=== PATIENT | female | born 1990 | race Caucasian/White ===

== ENCOUNTER 2024-06-10 11:10 | Emergency (ER) | payer OTHER, SELFPAY ==
[2024-06-10 11:43] VITALS: BP 145/68; PULSE 65; RESP 14; TEMP 36.5; O2SAT 98
--- NOTE | 2024-06-10 12:21 | ED.ANIMALBIT ---
HPI - Animal Bite General Chief Complaint: Animal Bite Stated Complaint: rabies vaccine Time Seen by Provider: 06/10/24 11:18 Source: patient Mode of arrival: ambulatory Limitations: no limitations History of Present Illness HPI narrative: Patient is a 33 y/o female who presents to the ED with c/o bat exposure. Patient reports she woke up this morning with a bat flying around her house. She was able to capture the bat in a box and has contacted the health department/animal control in [place]. Did not find any bite mckinney on herself or family members, but present for rabies vaccination. Tetanus UTD. Denies any other complaints. Related Data Allergies Allergy/AdvReac Type Severity Reaction Status Date / Time No Known Allergies Allergy Verified 06/10/24 11:11 Review of Systems Review of Systems: All systems reviewed & are unremarkable except as noted in HPI. All systems reviewed & are unremarkable except as noted in HPI and below Exam Narrative: GENERAL: Well appearing, well-nourished, non-toxic, in no acute distress. HEAD: Normocephalic, atraumatic. RESPIRATORY: Airway patent, respirations nonlabored. CARDIOVASCULAR: Regular rate and rhythm MUSCULOSKELETAL: Moves all extremities. No gross deformities. SKIN: Warm, dry, normal color. NEURO: A&O X3. Speech clear. PSYCHIATRIC: Appropriate mood and affect. Normal interaction. Course Vital Signs Vital signs: Vital Signs Temperature 97.7 F 06/10/24 11:43 Pulse Rate 65 06/10/24 11:43 Respiratory Rate 14 06/10/24 11:43 Blood Pressure 145/68 H 06/10/24 11:43 Pulse Oximetry 98 06/10/24 11:43 Oxygen Delivery Room Air 06/10/24 11:43 Temperature 97.7 F 06/10/24 11:43 Pulse Rate 65 06/10/24 11:43 Respiratory Rate 14 06/10/24 11:43 Blood Pressure 145/68 H 06/10/24 11:43 Pulse Oximetry 98 06/10/24 11:43 Oxygen Delivery Room Air 06/10/24 11:43 MDM - Animal Bite MDM Narrative Medical decision making narrative: Bat exposure. No obvious bite. Given rabies vaccine and immunoglobulin. Patient has contacted animal control and health department in [place] were incident occurred. They do have the bat in their possession still to given to animal control. Discussed case with Debbie Dupree here, infection control, will f/u with patient for subsequent vaccinations. Patient given return precautions. Discharged in stable condition. Medical Records Attestation: I reviewed the patient's medical records. Discharge Plan Discharge Clinical Impression: Exposure to bat without known bite Patient Disposition: Home, Self-Care Condition: Stable Instructions: Antibiotic Form, Rabies Vaccine (By injection), Rabies Immune Globulin (By injection), Rabies (ED) Additional Instructions: Follow-up with Debbie Dupree for further vaccines. [phone] Patient Language: Czech Follow-up/Referrals: PHYSICIAN,GREENHOUSE OR NURSERY TRANSPLANTER [Non-Staff] - Time of Disposition: 12:26
[2024-06-10] MEDS: RABIES VACCINE (RABAVERT) 2.5 UNITS VIAL IM (12:44)
[2024-06-10] MEDS: RABIES IMMUNE GLOBULIN 1600 UNITS IM (12:51)
--- OUTSIDE RECORDS SUMMARY | 2024-06-17 07:42 | XMS_ITS | Encounter Summary ---
Author Organization [facility] Address [address] [place] [address] Care Team Providers Care Sash Installer Name Role Phone Gordon Mccullough MD Primary Care Provider [phone]- [phone] Encounter Details Date Type Department Care Team (Latest Contact Info) Description 09/02/2023 Travel Social History Tobacco Use Types Packs/Day Years Used Date Smoking Tobacco: Never Smokeless Tobacco: Never Alcohol Use Standard Drinks/Week Comments Not Currently 4 (1 standard drink = 0.6 oz pur e alcohol) PHQ-2 Answer Date Recorded Patient Health Questionnaire-2 Score 0 08/26/2023 Comments Yes Sex and Gender Information Value Date Recorded Sex Assigned at Female 08/04/2021 1:55 PM ROCK MASON Gender Identity Female 08/04/2021 1:55 PM ROCK MASON Sexual Orientation Not on file documented as of this encounter Plan of Treatment Upcoming Encounters Date Type Department Care Team (Late st Contact Info) Description 07/21/2024 2:20 PM ROCK MASON Office Visit [facility] - Internal Medicine [address] [place] [address] Gordon Mccullough MD [address] [facility] [place] [phone] documented as of this encounter Visit Diagnoses Not on filedocumented in this encounter Care Teams Sash Installer Relationship Specialty Start Date End Date Gordon Mccullough MD PCP - General Family Medicine 08/08/21 documented as of this encounter
--- OUTSIDE RECORDS SUMMARY | 2024-06-17 07:42 | XMS_ITS | Encounter Summary ---
Author Organization [facility] Address [address] [facility] [place] [address] Care Team Providers Care Top Polisher Name Role Phone Gordon Mccullough MD Primary Care Provider [phone]- [phone] Reason for Visit * Reason Comments Routine Visit Encounter Details Date Type Department Care Team (Late st Contact Info) Description 09/02/2023 9:00 AM CDT visit [facility] - MICROBIOLOGY PROFESSOR [address] [place] [address], [address] [phone] Karin Pinto MD [address] [place] [phone] GA: [id number] Social History Tobacco Use Types Packs/Day Years Used Date Smoking Tobacco: Never Smokeless Tobacco: Never Alcohol Use Standard Drinks/Week Comments Not Currently 4 (1 standard drink = 0.6 oz pur e alcohol) PHQ-2 Answer Date Recorded Patient Health Questionnaire-2 Score 0 08/26/2023 Comments Yes Sex and Gender Information Value Date Recorded Sex Assigned at Female 08/04/2021 1:55 PM BPO SPECIALIST Gender Identity Female 08/04/2021 1:55 PM BPO SPECIALIST Sexual Orientation Not on file documented as of this encounter Last Filed Vital Signs Vital Sign Reading Time Taken Comments Blood Pressure 110/74 09/02/2023 9:14 AM CDT Pulse - - Temperature - - Respiratory Rate - - Oxygen Saturation - - Inhaled Oxygen Concentration - - Weight 87.1 kg (192 lb) 09/02/2023 9:14 AM CDT Height - - Body Mass Index 26.78 07/02/2023 9:20 AM BPO SPECIALIST documented in this encounter Progress Notes * Karin Pinto MD - 09/02/2023 9:21 AM CDT CC: Routine Care ?? Patient is doing well.??+FM.??Denies VB, LOF,??or regular ctx.??No new concerns.??Follow-up in??1??week for routine PNC. IOL scheduled 09/17/23 PM. documented in this encounter Plan of Treatment Upcoming Encounters Date Type Department Care Team (Late st Contact Info) Description 07/21/2024 2:20 PM BPO SPECIALIST Office Visit [facility] - Internal Medicine [address] [place] [address] Gordon Mccullough MD [address] [place] [phone] documented as of this encounter Visit Diagnoses Diagnosis 37 weeks gestation of (HCC)- Primary state, incidental Anxiety in , antepartum (HCC) Mental disorders of mother, antepartum documented in this encounter Care Teams Top Polisher Relationship Specialty Start Date End Date Gordon Mccullough MD PCP - General Family Medicine 08/08/21 documented as of this encounter
--- OUTSIDE RECORDS SUMMARY | 2024-06-17 07:42 | XMS_ITS | Encounter Summary ---
Author Organization [facility] Address [address] [facility] [place] [address] Care Team Providers Care Echo Technologist Name Role Phone Gordon Mccullough MD Primary Care Provider [phone]- [phone] Encounter Details Date Type Department Care Team (Latest Contact Info) Description 12/03/2023 Travel Social History Tobacco Use Types Packs/Day Years Used Date Smoking Tobacco: Never Smokeless Tobacco: Never Alcohol Use Standard Drinks/Week Comments Not Currently 4 (1 standard drink = 0.6 oz pur e alcohol) Overall Financial Resource Strain (CARDIA) Answe r Date Recorded How hard is it for you to pa y for the very basics like food, housing, medical care, and heating? Not hard at all 09/17/2023 PHQ-2 Answer Date Recorded Patient Health Questionnaire-2 Score 0 11/26/2023 [facility] [place] of Occupat ional Health - Occupational Stress Questionnaire Answer Date Recorded Do you feel stress - tense, restless, nervous, or anxious, or unable to sleep at night because your mind is troubled all the time - these days? Not at all 09/17/2023 Hunger Vital Sign Answer Date Recorded Within the past 12 months, y ou worried that your food would run out before you got the money to buy more. Never true 09/17/19 24 Within the past 12 months, t he food you bought just didn't last and you didn't have money to get more. Never true 09/17/2023 PRAPARE - Transportation Answer Date Re corded In the past 12 months, has l ack of transportation kept you from medical appointments or from getting medications? No 02/2024 In the past 12 months, has l ack of transportation kept you from meetings, work, or from getting things needed for daily living? No 09/17/2023 Housing Stability Vital Sign Answer Cade e Recorded In the last 12 months, was t here a time when you were not able to pay the mortgage or rent on time? No 09/17/2023 In the last 12 months, how many places have you lived? 1 09/17/2023 In the last 12 months, was t here a time when you did not have a steady place to sleep or slept in a long-term (including now)? No 09/17/2023 Vance Depression Scale Answer Date Recorded Vance Depression Scale Total 3 10/29/2023 The thought of harming myself has occurred to me . Never 10/29/2023 Sex and Gender Information Value Date Recorded Sex Assigned at Female 08/04/2021 1:55 PM HAND ETCHER HELPER Gender Identity Female 08/04/2021 1:55 PM HAND ETCHER HELPER Sexual Orientation Not on file documented as of this encounter Functional Status Functional Status Response Date of Assess ment Is person deaf or have serious hearing difficult y? No 09/17/2023 Is person blind or have serious difficulty seein g? No 09/17/2023 Does person have serious dif ficulty walking/climbing stairs? No 09/17/2023 Does person have difficulty dressing/bathing? No 09/17/2023 Does person have difficulty doing errands alone? No 09/17/2023 Cognitive Status Response Date of Assessm ent Does person have difficulty concentrating/remembering/making decisions? No 09/17/2023 documented as of this encounter Plan of Treatment Upcoming Encounters Date Type Department Care Team (Late st Contact Info) Description 07/21/2024 2:20 PM HAND ETCHER HELPER Office Visit [facility] - Internal Medicine [address] [facility] [place] [address] Gordon Mccullough MD [address] [place] [address] documented as of this encounter Visit Diagnoses Not on filedocumented in this encounter Care Teams Echo Technologist Relationship Specialty Start Date End Date Gordon Mccullough MD PCP - General Family Medicine 08/08/21 documented as of this encounter
--- OUTSIDE RECORDS SUMMARY | 2024-06-17 07:42 | XMS_ITS | Encounter Summary ---
Author Organization [facility] Address [address] [facility] [place] [address] Care Team Providers Care Production Control Expert Name Role Phone Gordon Mccullough MD Primary Care Provider [phone]- [phone] Yael Barrno TEACHER VOCATIONAL TRAINING Unavailable [phone] Reason for Visit * Reason Onset Date Comments Transitional Care 09/20/2023 Encounter Details Date Type Department Care Team (Late st Contact Info) Description 09/20/2023 Transitional Care [facility] - Care Coordination [address] [place] [phone] Yael Barron MSW Transitional Care Social History Tobacco Use Types Packs/Day Years [...] Recorded Patient Health Questionnaire-2 Score 0 08/26/2023 [facility] [place] of Occupat ional Health - Occupational Stress [...] place to sleep or slept in a fdc (including now)? No 09/17/2023 [place] Depression Scale Answer Date Recorded [place] Depression Scale Total 0 09/19/2023 The thought of harming myself has occurred to me . Never 09/19/2023 Sex and Gender Information Value Date Recorded Sex Assigned at Female 08/04/2021 1:55 PM HEARING HEALTHCARE PRACTITIONER Gender Identity Female 08/04/2021 1:55 PM HEARING HEALTHCARE PRACTITIONER Sexual Orientation Not on file documented as [...] No 09/17/2023 documented as of this encounter Miscellaneous Notes * Telephone Encounter - Yael Barron MSW - 09/20/2023 10:15 AM CDT Outreach 06/12: SW attempted patient outreach regarding Transitional Care; LMOV regarding purpose of contact and request for return call. Yael Barron LCSW-[place] [phone] documented in this encounter Plan of Treatment Upcoming Encounters Date Type Department Care Team (Late st Contact Info) Description 07/21/2024 2:20 PM HEARING HEALTHCARE PRACTITIONER Office Visit [facility] - Internal Medicine [address] [place] [address] Gordon Mccullough MD [address] [place] [phone] documented as of this encounter Visit Diagnoses Not on filedocumented in this encounter Care Teams Production Control Expert Relationship Specialty Start Date End Date Gordon Mccullough MD PCP - General Family Medicine 08/08/21 Yael Barron MSW Outpatient Embedded Developer Care Management 09/20/2309/23 documented as of this encounter
--- OUTSIDE RECORDS SUMMARY | 2024-06-17 07:42 | XMS_ITS | Encounter Summary ---
Author Organization [facility] Address [address] [place] [address] Care Team Providers Care Hoop Maker Helper Machine Name Role Phone Gordon Mccullough MD Primary Care Provider [phone] Reason for Referral * (Routine) - Pending Review Specialty Diagnoses / Procedures Referred By Jose pan Referred To Contact Procedures Follow up with provider Karin Pinto MD [address] [facility] [address] [place] [address] Referral ID Status Reason Start Date Expiration Date V isits Requested Visits Authorized [id number] Pending Review 09/19/2023 09/18/2024 1 1 Reason for Visit * Reason Comments Induction * Auth/Cert (Routine) Specialty Diagnoses / Procedures Referred By Jose pan Referred To Contact Referral ID Status Reason Start Date Expiration Date Visits Re quested Visits Authorized [id number] 1 1 Encounter Details Date Type Department Care Team (Late st Contact Info) Description 09/17/2023 5:55 PM CDT - 09/19/2023 6:18 PM CDT Hospital Encounter [facility] [address] [address] Karin Pinto MD [address] [place] [address] SOCIAL ECONOMIST Discharge Disposition: Home or Self Care Social History Tobacco Use Types Packs/Day [...] Recorded Patient Health Questionnaire-2 Score 0 08/26/2023 [facility] - Occupational Stress [...] place to sleep or slept in a senior living (including now)? No 09/17/2023 [place] Depression Scale Answer Date Recorded [place] Depression Scale Total 0 09/19/2023 The thought of harming myself has occurred to me . 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 LABORER Gender Identity Female 08/04/2021 1:55 PM DISTILLERY LABORER Sexual Orientation Not on file documented as of this encounter Last Filed Vital Signs Vital Sign Reading Time Taken Comments Blood Pressure 139/86 09/19/2023 4:47 PM CDT Pulse 78 09/17/2023 6:04 PM CDT Temperature 36.9 ??C (98.4 ??F) 09/19/2023 4:47 PM CD T Respiratory Rate 16 09/19/2023 4:47 PM CDT Oxygen Saturation 100% 09/19/2023 4:47 PM CDT Inhaled Oxygen Concentration - - Weight 86.1 kg (189 lb 12.8 oz) 09/17/2023 6:04 PM CDT Height 180.3 cm (5' 11 ) 09/17/2023 6:04 PM CDT Body Mass Index 26.47 09/17/2023 6:04 PM CDT documented in this encounter Functional Status Functional Status Response [...] No 09/17/2023 documented as of this encounter Discharge Summaries * Karin Pinto MD - 09/19/2023 8:56 AM CDT OB Discharge Note Subjective: Patient is feeling well, pain adequately controlled, and ambulating. She is tolerating a regular diet without n/v. She is urinating spontaneously without difficulty. +Flatus. Objective: Vitals: 09/18/23 0845 09/18/23 1220 09/18/23 1600 09/18/23 2313 BP: 129/87 134/77 120/77 116/75 Pulse: Resp: 16 16 16 16 Temp: 97.7 ??F (36.5 ??C) 97.7 ??F (36.5 ??C) 97.5 ??F (36.4 ??C) 97.8 ??F (36.6 ??C) SpO2: 99% 99% Weight: Height: Intake/Output Summary (Last 24 hours) at 09/19/2023 0856 Last data filed at 09/18/2023 1000 Gross per 24 hour Intake -- Output 20 ml Net -20 ml Exam: Gen: NAD Heart: Acyanotic Lungs: Non-labored breathing Abd: Soft, ND, fundus firm/below the umbilicus Results: There are no new results to review at this time. Admit Date: 09/17/2023 Admit Diagnosis: 39 weeks gestation of , anxiety in Reasons for Admission: induction of labor Discharge Date: 09/19/23 Discharge Diagnosis: Term vaginal delivery. Delivery Type: spontaneous vaginal delivery Antepartum complications: none Episiotomy: mediolateral without extension Feeding method: human milk Rhogam: not indicated Rubella: not indicated Assessment: 1, Para 1, 0, Estimated Date of Delivery: 09/23/23 Gestational Age day 1. Complications: none Condition at discharge: stable Discharge Instructions: Discharge Procedure Orders Why you were hospitalized Order Specific Question Answer Comments Your discharge diagnosis is: Normal labor and delivery (HCC) [[id number]] No special diet needed Resume your normal home diet as tolerated. Eat well-balanced meals that include foods from all of the food groups. Drink plenty of fluids It is important that you stay well hydrated. You should drink at least eight to ten 8-ounce glassesof water per day. Nothing per vagina For 6 week(s) Light activity For 6 week(s) Do not drive For 1 week(s), until you are no longer taking narcotic pain medication. No heavy lifting Do not lift anything over 15 pounds For 6 week(s). When to call your provider and patient information Depression (PPD): This is a type of depression that occurs after childbirth. PPD can occur as early as one week up toone year after giving . Signs could include: -Thinking of hurting yourself or your baby -Feeling out of control, unable to care for self or baby -Feeling depressed or sad most of the day every day -Having trouble sleeping or sleeping too much -Having trouble bonding with your baby Call 911 or go to the nearest emergency room if you feel you might harm yourself or your baby. Callclinic immediately for other signs of depression (sadness, withdrawn, difficulty coping with parenting) Venous Thromboembolism: Development of a blood clot usually in your leg (calf area). Signs can include: -Leg pain, tender to touch, burning or redness, particularly in the calf area -Swelling of one leg more than the other Infection: An infection is an invasion of bacteria or viruses that enter and spread through your body, making you ill. Signs can include: -Temp>/= 100.4 F (>/= 38 C) -Bad smelling blood or discharge from vagina -Increase in redness or discharge from episiotomy or open wound not healing Call clinic immediately for above signs. If symptoms worsen or no response from provider/clinic, call 911 or go to the nearest emergency room. Preeclampsia and High Blood Pressure: Hypertension is when your blood pressure is much higher than it should be. A severe and constant headache that does not respond to over the counter medications could be something more serious. Preeclampsia is a complication of that includes high blood pressures and signs of damage to other organs. Eclampsia is the compulsive phase of preeclampsia, characterized by seizures. Worrisome signs include: -Severe constant headache that does not respond to pain medications -Changes in vision, seeing spots or flashing lights -Pain in the upper right abdominal area -Swelling of face, hands and or legs more than what you would expect -Changes in level of consciousness Call 911 for seizures. Call the clinic immediately for any other signs. If symptoms worsen or no response from clinic, call 911 or go to the nearest emergency room. Obstetric Hemorrhage: Obstetric hemorrhage is when you have an excessive amount of bleeding after you have delivered yourbaby. Signs include: -Bleeding through more than 1 sanitary pad per hour -Passing 1 or more clots the size of an egg or bigger -Character of clots goes from dark red/brown with clots to bright red bleeding Call clinic immediately for signs of hemorrhage. If symptoms worsen, call 911 or go to the nearest emergency room. Cardiac (Heart) Disease: Cardiac disease is when your heart is not working well. Signs can include: -Shortness of breath, or difficulty breathing -Feeling that your heart is racing -Chest pain or pressure You must obtain immediate care by calling 911 or going to the nearest emergency room RIGHT AWAY. Shower and bathing instructions May shower any time. Discuss with your physician regarding tub baths. Follow up with provider Additional Scheduling Instructions: Readmission Risk Score: 2. End of Life Score: 0 Score Follow up Visit 0-18 Discharge Visit 5-10 days 19 or higher Discharge Visit within 5 days Post-Acute Care Facility Post-acute care team to determine timing of discharge visit Order Specific Question Answer Comments Follow Up Instructions for Patient: Other (See Comment) Follow-up at 6 weeks For relief of pain Take acetaminophen or ibuprofen for relief of pain or discomfort if not taking prescription medications. Stool softeners Take stool softener or Miralax for relief of difficult bowel movements. For relief of constipation Take Miralax or Mild of Magnesia for relief of constipation. Discharge to home. Follow up: Dr. Pinto in 6 weeks. Medications: Current Discharge Medication List CONTINUE taking these medications which have NOT CHANGED Instructions Authorizing Provider ferrous sulfate 325 (65 FE) MG tablet Quantity Dispensed: 30 tablet Take 1 (one) tablet by mouth daily with breakfast Karin Pinto MD fish oil/omega-3 fatty acids 1000 MG capsule Commonly known as: Promega;Cardi-Valley View 3 Take 1 (one) capsule by mouth 3 times daily with meals plus 27-1 MG tablet Quantity Dispensed: 30 tablet Take 1 (one) tablet by mouth once daily Karin Pinto MD sertraline 100 MG tablet Commonly known as: Zoloft Take 1.5 (one and one-half) tablets by mouth once daily documented in this encounter Discharge Instructions * Discharge Instructions* Teresa Starks RN - 09/18/2023 7:57 AM CDT DELIVERED MOTHER DISCHARGE INSTRUCTIONS Refer to the Booklet given during your stay for more information. Please contact your grease press helper for the following: Any burning or itching when urinating. . Any significant increase or change in color or odor of vaginal discharge and/or any pus draining Any significant increase in pain, tenderness, or redness Any increased vaginal bleeding that may contain clots. Temperature greater than 101 degrees or as instructed by your care provider. Any pus or blood draining from nipples. Remember to collect all your belongings kept at the bedside, for example: your cell phone and cell phone php web developer. PLEASE REMEMBER: Always place your on his/her back to sleep. Always use a car safety seat when transporting your child. Discharge Instructions Office at [facility] # [phone] General instructions for the first two weeks at home - Breastfeed 8 or more times in 24 hours. - Feed on one breast completely, then offer second breast. Burping and diapering will often awaken baby for feeding. - Massage breasts before and during feeding to help the milk to flow. - should have 6 or more wet diapers and several yellow bowel movements each day by end of the first week. - Drink enough fluids throughout the day to avoid becoming thirsty, one glass every time you breastfeed or pump. - Rest when the baby rests. - For tender nipples, use expressed milk or lanolin after feeding, review proper positioning for good latch. - Eat nutritious snacks between meals to add the extra calories needed for . - Continue taking your pre-katelynn vitamins. Call your teamcenter consultant and your doctor if: * Your baby will not wake up to eat after 5 hours (after trying wake up techniques). * Your baby has less than 6 wet diapers and 2 bowel movements in 24 hours by the end of the first week. * Your baby will not stay latched on for 2 feedings in a row. * You have pain or problems with your nipples or breasts. * You are worried about your baby or have questions about feedings. * Your baby is a and his skin becomes yellow or jaundice extending below the waist. PLEASE REMEMBER: Always place your on his/her back to sleep. Always use a car safety seat when transporting your child. Proper positioning for good latch - Baby is tummy to tummy, facing breast. - Mouth wide open, like a yawn, pull baby to the breast. - Tongue down. - 1 to 1.5 inch of nipple and areola in mouth. - Support neck and head of infant, use a pillow under your arm if necessary. Proper Sucking - Lips are wide and curled outward from breast. - No smacking, clicking, dimpling of the cheeks. - By the end of the first week your breasts feel full before feeding and softer after feeding. Hungry baby cues Wake up techniques - Stretching - Undress baby - Hand to mouth - Hold [id number] - Eye blinking - Rub baby's hands, feet, legs - Making sucking noises - Massage baby's cheeks, lips and mouth - Rooting - Wipe baby's face with wet wash cloth - Change diaper Come and see us at [facility] in Wednesdays ~ every Saturday from 10-12 on the [place] level documented in this encounter Medications at Time of Discharge Medication Sig Dispensed Refills Start Date End Date fish oil/omega-3 fatty acids (Promega;Cardi-Valley View 3) 1000 MG capsule Take 1 (one) capsule by mouth 3 times daily with meals Vit-Fe Fumarate-FA ( plus) 27-1 MG tabletIndications:Visit for confirmation of test result with physical exam Take 1 (one) tablet by mouth once daily 30 tablet 02/18/2023 sertraline (Zoloft) 100 MG tablet Take 1.5 (one and one-half) tablets by mouth once daily ferrous sulfate 325 (65 FE) MG tabletIndications:Visit for confirmation of test result with physical exam Take 1 (one) tablet by mouth daily with breakfast 30 tablet 02/18/2023 12/03/2023 documented as of this encounter Progress Notes * Jeny Gilliam - 09/18/2023 11:28 PM CDT Problem: Goal: Status is maintained within the expected range. Outcome: Progressing Note: Hildas vital signs, bleeding and fundus are WNL. Problem: Emotional Well-Being Goal: Patient participates in decision-making and choices for care. Outcome: Progressing Goal: Parent- bonding occurs Outcome: Progressing Note: Tati is utilizing frequent sessions of skin to skin with her and well. No concerns noted with bonding. Problem: Pain/Discomfort Goal: Patient exhibits reduced pain/discomfort as evidenced by pain scores Outcome: Progressing Note: Tati rates her pain a 0/10. She is alternating tylenol and motrin for when she does need pain relief. Goal: Patient uses pharmacological and non-pharmacological pain management strategies. Outcome: Progressing Goal: Patient verbalizes acceptable level of pain relief and ability to engage in desired activity. Outcome: Progressing Problem: Pain/Discomfort Goal: Patient exhibits reduced pain/discomfort as evidenced by pain scores Outcome: Progressing Note: Tati rates her pain a 0/10. She is alternating tylenol and motrin for when she does need pain relief. * Sabrina Lennon - 09/18/2023 10:07 AM CDT 09/18/23 1000 Visit Type Assessment Date 09/18/23 Manager Diabetes Visiting Patient Lawrence Griffith Pastoral Care Visit Type(s) Patient not available (Attempted visit; Mom was attempting to sleep. If there is time, airplane refueler will check back this afternoon.) Jose Oroscolain Pastoral Care Department [facility] x [phone] [facility] Pager: [phone] (Mon-Fri: 7AM - 9PM and Sat/Sun 7AM - 3PM) Pastoral Care customer professional pager - Call [phone] (outside of the times listed above) and enter a 10 digit call back number. Please allow the customer professional airplane refueler 30 minutes to arrive to the hospital. [email or web address] * Debbi Solomon RN - 09/18/2023 9:57 AM CDT Problem: Goal: Status is maintained within the expected range. Outcome: Progressing Problem: Emotional Well-Being Goal: Patient participates in decision-making and choices for care. Outcome: Progressing Goal: Parent- bonding occurs Outcome: Progressing * Debbi Solomon RN - 09/18/2023 9:57 AM CDT Problem: Goal: Status is maintained within the expected range. Outcome: Progressing Problem: Fall Risk Goal: Fall risk and fall related injury risk are minimized (Interventions related to the fall risk can be found in the flowsheet documentation) Outcome: Progressing Problem: Maternal and Safety Goal: Maternal & status throughout the labor & delivery process is maintained within expected range. Outcome: Completed Problem: Emotional Well-Being Goal: Participates in decision-making Outcome: Completed Goal: Verbalizes coping strategies Outcome: Completed Goal: Parent- bonding occurs Description: As evidenced by: A. Eye contact B. Holding close C. Frequently touching Outcome: Completed Problem: Potential for Maternal/ Injury Goal: Patient and fetus will have safe delivery. Outcome: Completed * Karin Pinto MD - 09/18/2023 7:43 AM CDT Images from the original note were not included. Patient Name: Tati Cm Patient Age: [age] year old Today's Date: 09/18/2023 DELIVERY SUMMARY Estimated Date of Delivery: 09/23/23 Delivery Summary Patient Information Patient Name Tati Cm ([id number]) Gender Identity Female 1990 OB History 1 Para 1 Term 1 0 AB 0 Living 1 SAB 0 IAB 0 Ectopic 0 Multiple 0 Live Births 1 1 Outcome: Term Date: 09/18/23 GA: 39w2d Sex: F Delivery: Vag-Spont Living: HIEN Name: Rosemarie Cm Labor/2nd: / 1h 49m Weight: 3592 g (7 lb 14.7 oz) Anes: Epidural PTL: N A1: 7 A5: 9 Complications: Intolerance Location: [facility] [place] Delivering Clinician: Karin Pinto MD Transcribed Labs Row Name 09/17/23 1622 RH (Manually Reproduced) Positive Blood Type (Manually Reproduced) A Syphilis Serology (Manually Reproduced) Negative HIV (Manually Reproduced) Negative Hepatitis B Surface Antigen (Manually Reproduced) Negative Hepatitis C (Manually Reproduced) Negative Rubella Status ( Manually Reproduced) Immune Beta Strep Culture (Manually Reproduced) Positive Labor Length 2nd stage: 1h 49m 3rd stage: 0h 04m Blood Loss Flowsheet Row Admission (Current) from 09/17/[address] [facility] Estimated Blood Loss -- Quantitated Blood Loss 100 ml Rosemarie Cm [[id number]] Patient Information Patient Name Rosemarie Cm ([id number]) Legal Sex Female Anesthesia Method: Epidural Labor Events labor?: No steroids: None GBS Status: positive Antibiotic: penicillin Number of Antibiotic Doses: 3 Rupture Date: 09/17/23 Time: 2029 Rupture type: Spontaneous, Ruptured, Patient Denies Leaking Fluid color: Clear Fluid odor: Normal Odor Induction: Misoprostol Indications for induction: Elective Labor complications: Intolerance [place] Delivery Details Forceps attempted?: No Vacuum extractor attempted?: No Shoulder dystocia present?: No Presentation: Vertex:OA Delivery (Maternal) Episiotomy: Right Mediolateral Perineal lacerations: 2nd Repaired?: Yes Repair suture: Vicryl, 2.0 Placenta Date/time: 09/18/2023522 Disposition: Discarded Removal: Spontaneous Appearance: Intact Other Delivery Procedures/Provider Comments Procedures: None Comments: Due to persistent NRFHT's ( bradycardia) with delivery delayed due to soft tissue restriction at the vaginal introitus, a small episiotomy was completed to assist with delivery. Delivery then occurred promptly with the following push. Delivery - Physician I was present at delivery (physician name): Karin Pinto Counts Initial count personnel: DR. PINTO Initial count verified by: BENJAMÍN VILLALOBOS [employer] Lap Pads Sponges Initial counts 0 0 6 0 Added to counts 1 0 0 0 Final counts 1 0 6 0 Final count personnel: DR. PINTO Final count verified by: BENJAMÍN VILLALOBOS Vaginal packing left in?: Neg Accurate final count?: Yes Delivery () Delivery Date: 09/18/23 Delivery Time: 5:19 AM Delivery type: Vaginal, Spontaneous Apgars Living status: Living Component Scores: 1 min.: 5 min.: 10 min.: 15 min.: 20 min.: Skin color: 0 1 Heart rate: 2 2 Reflex irritability: 2 2 Muscle tone: 2 2 Respiratory effort: 1 2 Total: 7 9 Apgars assigned by: DOUGIE VILLALOBOScomplaint supervisor Stabilization Equipment Checked by: dougie villalobos Vigorous at ? (Heart rate greater than 100, normal respirations and normal muscle tone): No Suction Method: Suction Trap Secretions (Amount in Comment): Clear, Thick Requires more than warming, stimulation, and suction?: Yes, See Infant's Chart Airway Support: CPAP via T-Piece Oxygen Concentration%: 21 Oxygen Saturation%: 10 CPAP Initiated: 09/18/2023 0521 CPAP Ended: 09/18/2023 0523 Chest Compressions: No Thermoregulation Support: Cap, Overhead Warmer, Warm Blankets, Skin to Skin Description of baby: of baby girl, shallow respirations without spontaneous cry. Brought to warmer, dried, suction, stimulated. CPAP initiated for 2 mins. CPAP off at 4 MOL with pink color and normal respiratory effort. Cord Complications: None Vessels: 3 Vessels Delayed cord clamping?: Yes Time delayed: 60 seconds or greater Cord blood disposition: Discard Gases sent?: Yes, Arterial, Venous Stem cell collection (by MD)?: No [place] Measurements Weight: 3592 g Pounds and Ounces: 7 lb 14.7 oz Length: 20 Head circumference: 13.19 Chest circumference: Infant Disposition: With Mother Feeding and Elimination Mother's Feeding Choice During Stay ( Core Measure PC05): Breast Milk Voided in Delivery Room?: No Stooled in Delivery Room?: No I have reviewed and agree with the delivery summary. I am the delivering physician. Karin Pinto MD * Jeny Gilliam - 09/18/2023 1:43 AM CDT Problem: Maternal and Safety Goal: Maternal & status throughout the labor & delivery process is maintained within expected range. Outcome: Progressing Note: Continuous external maternal and monitoring reveals a category 1 tracing. Problem: Emotional Well-Being Goal: Participates in decision-making Outcome: Progressing Goal: Verbalizes coping strategies Outcome: Progressing Note: Patient is coping with her labor by utilizing the support of her and an epidural for pain management. Goal: Parent- bonding occurs Description: As evidenced by: A. Eye contact B. Holding close C. Frequently touching Outcome: Progressing Note: Tati plans to breast feed and utilize skin to skin with her . Problem: Potential for Maternal/ Injury Goal: Patient and fetus will have safe delivery. Outcome: Progressing Problem: Emotional Well-Being Goal: Patient/Support person will have all essential information communicated in language they can understand Outcome: Completed Goal: Care delivered is culturally relevant Outcome: Completed * Fouzia Taveras MD - 09/17/2023 7:40 PM CDT OB Ultrasound Note Tati Cm 09/17/2023 7:40 PM [id number] Subjective: Called to see patient for: Pre-Induction Ultrasound for Presentation Objective: Vitals: 09/17/23 1815 09/17/23 1820 09/17/23 1830 09/17/23 1845 BP: 136/91 Pulse: Resp: 16 Temp: 97.9 ??F (36.6 ??C) SpO2: 98% 99% Weight: Height: heart tones: baseline rate 130s, variability: moderate, reassuring Bedside Ultrasound: vertex Assessment: 1, Para 0, 0, Estimated Date of Delivery: 09/23/23 Gestational Age 39w1d Confirmed Vertex by bedside ultrasound. Plan: Continue present management per Attending orders and anticipate vaginal delivery Fouzia Cason MD * Debbi Solomon RN - 09/17/2023 7:30 PM CDT Problem: Maternal and Safety Goal: Maternal & status throughout the labor & delivery process is maintained within expected range. Outcome: Progressing Problem: Emotional Well-Being Goal: Participates in decision-making Outcome: Progressing Goal: Verbalizes coping strategies Outcome: Progressing Goal: Patient/Support person will have all essential information communicated in language they can understand Outcome: Progressing Goal: Care delivered is culturally relevant Outcome: Progressing Goal: Parent- bonding occurs Description: As evidenced by: A. Eye contact B. Holding close C. Frequently touching Outcome: Progressing Problem: Potential for Maternal/ Injury Goal: Patient and fetus will have safe delivery. Outcome: Progressing documented in this encounter H&P Notes * Karin Pinto MD - 09/17/2023 10:14 AM CDT Private OB Induction History and Physical Tati Cm [id number] 09/17/2023 Subjective: Tati Cm is a 32 year old Estimated Date of Delivery: 09/23/23 female at 39w1d weeks gestation. OB History Para Term AB Living 1 0 0 0 0 0 SAB IAB Ectopic Multiple Live Births 0 0 0 0 0 Obstetric Comments No hx of abnormal PAP smears No hx of STIs Chief Complaint: She comes to L&D for an induction of labor. History of Present Illness: has been complicated by anxiety and depression for which she takes Zoloft. She also had GBSuria in the first trimester. is Single. MaterniT c/w low-risk female. Movement is normal. The following are indications for induction of labor: 39 weeks or greater maturity criteria include: ultrasound documentation of crown-rump length at 6-11 weeks supporting gestational age of 39 weeks or more (ultrasound report) Objective: There were no vitals taken for this visit. Past, Family, and Social History ALLERGIES: No Known Allergies CURRENT MEDS: Current Outpatient Medications on File Prior to Encounter Medication Sig Dispense Refill ??? ferrous sulfate 325 (65 FE) MG tablet Take 1 (one) tablet by mouth daily with breakfast 30 tablet 11 ??? fish oil/omega-3 fatty acids (Promega;Cardi-[place] 3) 1000 MG capsule Take 1 (one) capsule by mouth 3 times daily with meals ??? Vit-Fe Fumarate-FA ( plus) 27-1 MG tablet Take 1 (one) tablet by mouth once daily 30 tablet 11 ??? sertraline (Zoloft) 100 MG tablet Take 1.5 (one and one-half) tablets by mouth once daily No current facility-administered medications on file prior to encounter. PAST MEDICAL HISTORY: Past Medical History: Diagnosis Date ??? Anxiety ??? Depression SURGERIES: Past Surgical History: Procedure Laterality Date ??? Breast Augmentation 2010 Replacement 11/2022 FAMILY HISTORY: Family History Problem Relation Name Age of Onset ??? Depression Mother ??? Cancer - Breast Neg Hx ??? Cancer - Uterine Neg Hx ??? Cancer - Ovarian Neg Hx ??? Cancer - Colon Neg Hx SOCIAL HISTORY: Social History Socioeconomic History ??? Marital status: Spouse name: Not on file ??? Number of children: Not on file ??? Years of education: Not on file ??? Highest education level: Not on file Occupational History ??? Not on file Tobacco Use ??? Smoking status: Never ??? Smokeless tobacco: Never Vaping Use ??? Vaping Use: Never used Substance and Sexual Activity ??? Alcohol use: Not Currently Alcohol/week: 4.0 standard drinks of alcohol Types: 4 Alcoholic drink(s) per week ??? Drug use: Never ??? Sexual activity: Yes Partners: Male Other Topics Concern ??? Not on file Social History Narrative ??? Not on file Social Determinants of Health Financial Resource Strain: Not on file Food Insecurity: Not on file Transportation Needs: Not on file Stress: Not on file Housing Stability: Not on file Review of Systems: Review of systems is negative . Physical Exam: General appearance: alert, cooperative, no distress Lungs: non-labored breathing Heart: acyanotic Abdomen: gravid, non-tender Extremities: normal Presentation: cephalic Cervix: Dilation: 1cm Effacement: 70% Station: -3 Membranes: intact Lab Review: Blood type: A+ GBS: positive Assessment: IUP in a G 1 P 0 A 0 Estimated Date of Delivery: 09/23/23 female at 39w1d weeks gestation. Obstetrical history: anxiety/depression, GBSuria Plan: Admitted for cervical ripening/labor induction. Augmentation: Cytotec until iqbal score of 8 then Pitocin per protocol Analgesia: Epidural per patient preference once regular ctx with cervical change is observed GBSuria in . Plan for PCN with initiation of pitocin. cEFM Anticipate vaginal delivery. The risks and benefits of induction of labor were explained to the patient. Patient understands andwill proceed with induction of labor. Karin Pinto MD documented in this encounter Nursing Notes * Nevaeh Mojica RN - 09/19/2023 11:40 AM CDT This note was copied from a baby's chart. follow-up: General information reviewed and questions answered. Latches easily with a nipple shield strong nutritive sucks observed. Pointed out the indications of correct position, latch and suck to mom as infant nursed off both breast. Encouraged mom to call for further assistance as needed otherwise to follow up in am. * Nevaeh Mojica RN - 09/18/2023 1:15 PM CDT This note was copied from a baby's chart. Consult: General information discussed and questions answered (frequency/duration of feeds, hunger cues, hand expression, infant getting enough, maternal diet, nipple care, mom/baby educational magazine and videos). Did latch easily with a nipple shield strong nutritive sucks observed. Colostrum noted in shield at end of feeding. Pointed out the indications of correct position, latch and suck to mom as nursed. Encouraged mom to call for further assistance as needed otherwise to follow up in am. documented in this encounter Plan of Treatment Upcoming Encounters Date Type Department Care Team (Late st Contact Info) Description 07/21/2024 2:20 PM [employer] Office Visit [facility] - Internal Medicine [address] [place] [address] Gordon Mccullough MD [address] [place] [address] documented as of this encounter Procedures Procedure Name Priority Date/Time Associated Diagnosis Comments BLOOD TYPE VERIFICATION Routine 09/17/2023 7:23 PM CDT SYPHILIS ANTIBODY CASCADING REFLEX STAT 09/17/2023 6:12 PM CDT 39 weeks gestation of (HCC) TYPE + SCREEN PANEL STAT 09/17/2023 6 :12 PM CDT CBC W AUTO DIFFERENTIAL STAT 09/17/2023 6:12 PM CDT documented in this encounter Results * BLOOD TYPE VERIFICATION (09/17/2023 7:23 PM CDT) Pathologist [facility] [place] ABO Rh A POS 09/17/2023 8:3 4 PM CDT [facility] Blood Bank BLOOD SPECIMEN / Unknown Venipuncture / Unknown 09/17/2023 7:23 PM CDT 09/17/2023 7:43 PM CDT Karin Pinto MD LAB - BLOOD BANK ORDERABLES Performing Organization Address [facility]/ZIP Co de Phone Number [facility] [phone] * SYPHILIS ANTIBODY CASCADING REFLEX (09/17/2023 6:12 PM CDT) Pathologist [facility] [place] Treponema pallidum Antibody Non Reactive Non Reactive 09/17/2023 10:41 PM CDT [facility] Comment: No Laboratory evidence of syphilis infection. ?? Note: ??Circulating antibodies may be low or undetectable in early infection. ??If recent exposure is suspected, re-draw sample in 2-4 weeks and repeat testing. Blood BLOOD SPECIMEN / Unknown Venipuncture / Unknown 09/17/2023 6:12 PM CDT 09/17/2023 6:22 PM CDT Karin Pinto MD LAB - SEROLOGY OR DERABLES Performing Organization Address City/[facility]/ZIP Co de Phone Number [facility] [address] [place], [place] [phone] * (ABNORMAL) CBC W AUTO DIFFERENTIAL (09/17/2023 6:12 PM CDT) Pathologist [facility] [place] WBC 9.0 4.0 - 10.7 x10E9/L 09/17/2023 6:26 PM CDT [facility] RBC Count 4.34 3.90 - 5.20 x10E12/L 09/17/2023 6:26 PM CDT [facility] Hemoglobin 13.7 11.9 - 15.8 g/dL 09/17/2023 6:26 PM CDT [facility] Hematocrit 38.6 34.8 - 46.1 % 09/17/2023 6:26 PM CDT [facility] MCV 88.9 80.0 - 98.0 fL 09/17/2023 6:26 PM [facility] MCH 31.6 26.7 - 33.6 pg 09/17/2023 6:26 PM [facility] MCHC 35.5 31.7 - 36.3 g/dL 09/17/2023 6:26 PM [facility] RDW-CV 11.9 11.3 - 14.8 % 09/17/2023 6:26 PM [facility] Platelet Count 209 150 - 420 x10E9/L 09/17/2023 6:26 PM [facility] MPV 11.8(H) 7.8 - 11.4 fL 09/17/2023 6:26 PM [facility] Neutrophil % 61.4 41.0 - 74.0 % 09/17/2023 6:26 PM [facility] Lymphocyte % 32.5 17.0 - 47.0 % 09/17/2023 6:26 PM [facility] Monocyte % 5.5 3.0 - 11.0 % 09/17/2023 6:26 PM [facility] Eosinophil % 0.2 0.0 - 7.0 % 09/17/2023 6:26 PM [facility] Basophil % 0.1 0.0 - 1.6 % 09/17/2023 6:26 PM [facility] Immature Granulocytes % 0.3 0.0 - 1.0 % 09/17/2023 6:26 PM [facility] Neutrophil Absolute 5.54 1.60 - 7.50 x10E9/L 09/17/2023 6:26 PM [facility] Lymphocyte Absolute 2.94 1.00 - 4.40 x10E9/L 09/17/2023 6:26 PM [facility] Monocyte Absolute 0.50 0.15 - 1.00 x10E9/L 09/17/2023 6:26 PM [facility] Eosinophil Absolute 0.02 0.00 - 0.60 x10E9/L 09/17/2023 6:26 PM [facility] Basophil Absolute 0.01 0.00 - 0.13 x10E9/L 09/17/2023 6:26 PM CDT [facility] Blood BLOOD SPECIMEN / Unknown Venipuncture / Unknown 09/17/2023 6:12 PM CDT 09/17/2023 6:22 PM CDT Karin Pinto MD LAB - HEMATOLOGY ORDERABLES [facility] [address] [place] [address] * TYPE + SCREEN PANEL (ALL SS except [facility]) (09/17/2023 6:12 PM CDT) ABO Rh A POS 09/17/2023 7:10 PM CDT [facility] Comment:No history; collect retype. Antibody Screen NEG 7:10 PM CDT [facility] Blood Bank BLOOD SPECIMEN / Unknown Venipuncture / Unknown 09/17/2023 6:12 PM CDT 09/17/2023 6:22 PM CDT Karin Pinto MD LAB - BLOOD BANK ORDERABLES Performing Organization Address City/[facility] Co de Phone Number [facility] [address] [place] [address] documented in this encounter Visit Diagnoses Diagnosis Normal labor and delivery (HCC)- Primary Normal delivery 39 weeks gestation of (HCC) state, incidental Anxiety Anxiety state, unspecified Anxiety in , antepartum (HCC) Mental disorders of mother, antepartum Anxiety in , antepartum (HCC) Mental disorders of mother, antepartum 39 weeks gestation of (HCC) state, incidental documented in this encounter Administered Medications Inactive Administered Medications - up to 3 most recent administrations Medication Order MAR Action Action Date Dose Rate Site 0.9% NaCl injection 3 mL 3 mL, Intracatheter, EVERY 8 HOURS, First dose on Sat09/18/23 at 0615, Until Discontinued, $ Given 09/18/2023 4:03 PM CDT 3 mL acetaminophen (Tylenol) tablet 650 mg 650 mg, Oral, EVERY 6 HOURS PRN, Mild Pain, Starting on Sat09/18/23 at 0603, Until Sat09/19/23 at 1923, Patient preference for lesser PRN pain meds may be honored when the patient requests a less strong medication, a lower dose, or a less intrusive route of administration when the lesser drug, dose and route have been ordered for the patient. This patient request must be documented in the MAR. If both oral and IV options are ordered for the same pain severity, give oral first unless patient cannot tolerate oral intake, $ Given 09/19/2023 9:38 AM CDT 650 mg $ Given 09/19/2023 2:29 AM CDT 650 mg $ Given 09/18/2023 8:09 PM CDT 650 mg benzocaine-menthol (Dermoplast) spray Topical, 4 TIMES DAILY PRN, Mild Pain, Starting on Sat09/18/23 at 0646, Until Sat09/19/23 at 1923, . WASTE DISPOSAL INSTRUCTION: Send to Pharmacy for Disposal. . $ Given 09/18/2023 6:57 AM CDT docusate sodium (Colace) capsule 100 mg 100 mg, Oral, 2 TIMES DAILY PRN, Constipation, Starting on Sat09/18/23 at 0603, Until Sat09/19/23 at 1923, $ Given 09/18/2023 8:09 PM CDT 100 mg $ Given 09/18/2023 9:11 AM CDT 100 mg ibuprofen (Motrin) tablet 600 mg 600 mg, Oral, EVERY 6 HOURS, First dose on Sat09/18/23 at 0615, Until Discontinued, Maximum allowable amount = 3200 mg / 24 hours. Patient preference for lesser PRN pain meds may be honored when the patient requests a less strong medication, a lower dose, or a less intrusive route of administration when the lesser drug, dose and route have been ordered for the patient. This patient request must be documented in the MAR. If both oral and IV options are ordered for the same pain severity, give oral first unless patient cannot tolerate oral intake, $ Given 09/19/2023 4:27 PM CDT 600 mg $ Given 09/19/2023 9:38 AM CDT 600 mg $ Given 09/19/2023 2:29 AM CDT 600 mg lactated ringers infusion at 125 mL/hr, Intravenous, CONTINUOUS, Starting on Sat09/17/23 at 1815, Until Sat09/17/23 at 2317, Start IV with 18 gauge angiocath., Labor and Delivery $ New Bag/Syringe 09/17/2023 8:46 PM CDT 125 mL/hr lactated ringers infusion at 999 mL/hr, Intravenous, PRN, Epidural placement., Starting on Sat09/17/23 at 1952, Until Sat09/18/23 at 0603 $ New Bag/Syringe 09/17/2023 10:48 PM CDT 999 mL/hr lactated ringers infusion at 125 mL/hr, Intravenous, CONTINUOUS, Starting on Sat09/18/23 at 0000, Until Sat09/18/23 at 0603 *Current Bag - New Order 09/17/2023 11:56 PM CDT 125 mL/hr lanolin topical Topical, PRN, Dry Skin, Starting on Sat09/18/23 at 0646, Until [place] 09/19/23 at 1923, Apply to sore/cracked nipples $ Given 09/18/2023 6:57 AM CDT miSOPROStol (Cytotec) tablet 50 mcg 50 mcg, Oral, EVERY 4 HOURS, First dose on Sat09/17/23 at 1815, Until Discontinued, Labor and Delivery $ Given 09/17/2023 6:44 PM CDT 50 mcg ondansetron (Zofran) injection 4 mg 4 mg, Intravenous, EVERY 6 HOURS PRN, Nausea/Vomiting, Starting on Sat09/17/23 at 2317, Until Sat09/18/23 at 0603, Administer over 2 to 5 minutes. $ Given 09/18/2023 3:38 AM CDT 4 mg ondansetron (Zofran) injection ADS Med 1 dose, Starting on Sat09/17/23 at 2310, Until Sat09/17/23 at 2312, Created by cabinet override $ Given 09/17/2023 11:12 PM CDT 4 mg oxytocin (Pitocin) 30 units in 500 mL 0.9% sodium chloride infusion 0-20 deloris-units/min (0-20 mL/hr), Intravenous, CONTINUOUS, Starting on Sat09/18/23 at 0000, Until Sat09/18/23 at 0603, Titration Parameters: Standard Dose, Indication: Induction/Augmentation of labor, Initiate infusion at: 2 deloris-units/min, Titrate infusion by: 2 deloris-units/min, Titrate no sooner than every: 30 minutes, To maintain: May increase or decrease infusion to maintain contractions 2-3 minutes apart in the presence of reassuring heart tracing, but not to exceed 5 contractions in 10 minutes or exceed max infusion rate., Decrease Oxytocin rate: May decrease Oxytocin by half current dose in the presence of uterine tachysystole (greater than 5 contractions in 10 minutes) and notify provider. May decrease oxytocin by half current dose at the time of rupture of membranes once verified with provider, Pause Oxytocin infusion: Pause oxytocin immediately for abnormal or indeterminate status, and notify provider. Rate Change 09/18/2023 2:04 AM CDT 8 deloris-units/min 8 mL/hr Rate Change 09/18/2023 1:24 AM CDT 6 deloris-units/min 6 mL/ hr Rate Change 09/18/2023 12:54 AM CDT 4 deloris-units/min 4 mL /hr oxytocin (Pitocin) 30 units in 500 mL 0.9% sodium chloride infusion 125-1,000 deloris-units/min (125-1,000 mL/hr), Intravenous, CONTINUOUS, Starting on Sat09/18/23 at 0115, Until Sat09/18/23 at 0514, Infuse first bag post-delivery at 1,000 deloris-units/min, then decrease rate to 250 deloris-units/min until discontinued. $ New Bag/Syringe 09/18/2023 5:43 AM CDT 250 deloris-units/min 250 mL/hr *Current Bag - New Order 09/18/2023 5:23 AM CDT 999 deloris- units/min 999 mL/hr penicillin G potassium 3 Million Units in 0.9% NaCl IV 50 mL IVPB 3 Million Units, at 100 mL/hr, Intravenous, EVERY 4 HOURS, First dose on Sat09/17/23 at 2215, Until Discontinued, Refrigerate, Indication for anti-infective therapy: Suspected infection, Site of anti-infective therapy: Other, Other site of infection (free text): GBS Prophylaxis, Labor and Delivery $ New Bag/Syringe 09/18/2023 4:37 AM CDT 3 Million Units 100 mL/hr $ New Bag/Syringe 09/18/2023 12:47 AM CDT 3 Million Units 100 mL/hr penicillin G potassium 5 Million Units in 0.9% NaCl IV 100 mL IVPB 5 Million Units, at 200 mL/hr, Intravenous, ONCE, 1 dose, On Sat09/17/23 at 1815, Indication for anti-infective therapy: Suspected infection, Site of anti-infective therapy: Other, Other site of infection (free text): GBS Prophylaxis, Labor and Delivery $ New Bag/Syringe 09/17/2023 8:48 PM CDT 5 Million Units 200 mL/hr vitamin with iron tablet 1 tablet 1 tablet, Oral, DAILY, First dose on Sat09/18/23 at 0900, Until Discontinued, $ Given 09/19/2023 9:38 AM CDT 1 tablet $ Given 09/18/2023 9:11 AM CDT 1 tablet sertraline (Zoloft) tablet 150 mg 150 mg, Oral, DAILY, First dose on Sat09/18/23 at 0900, Until Discontinued, Avoid concurrent administration wth grapefruit juice $ Given 09/19/2023 9:38 AM CDT 150 mg $ Given 09/18/2023 9:11 AM CDT 150 mg witch ryan-glycerin (Tucks) pad Topical, PRN, Hemorrhoids, Starting on Sat09/18/23 at 0603, Until Sat09/19/23 at 1923, Apply to affected area., $ Given 09/18/2023 6:57 AM CDT documented in this encounter Active and Recently Administered Medications Times are shown in CDT. Scheduled Medication Order 09/17/2023 09/18/2023 09/19/2023 0.9% NaCl injection 3 mL (CANCELED) 3 mL, Intracatheter, EVERY 8 HOURS, First dose on Sat09/18/23 at 0615, Until Discontinued, 0619 (Not Administered - Provider: Jeny Gilliam - Reason: IV Currently Infusing)1603 ($ Given - Provider: Debbi Solomon RN) ibuprofen (Motrin) tablet 600 mg 600 mg, Oral, EVERY 6 HOURS, First dose on Sat09/18/23 at 0615, Until Discontinued, Maximum allowable amount = 3200 mg / 24 hours. Patient preference for lesser PRN pain meds may be honored when the patient requests a less strong medication, a lower dose, or a less intrusive route of administration when the lesser drug, dose and route have been ordered for the patient. This patient request must be documented in the MAR. If both oral and IV options are ordered for the same pain severity, give oral first unless patient cannot tolerate oral intake, 0657 ($ Given - Provider: Jeny Gilliam)1411 ($ Given - Provider: Debbi Solomon, WILFREDO)2008 ($ Given - Provider: Jeny Gilliam) 0229 ($ Given - Provider: Jeny Gilliam)0938 ($ Given - Provider: Shantelle Ramesh RN)1627 ($ Given - Provider: Teresa Starks RN)1800 (Due) miSOPROStol (Cytotec) tablet 50 mcg (CANCELED) 50 mcg, Oral, EVERY 4 HOURS, First dose on Sat09/17/23 at 1815, Until Discontinued, Labor and Delivery 1844 ($ Given - Provider: Debbi Solomon RN)2325 (Not Administered - Provider: Jeny Gilliam - Reason: Discontinued by physician) penicillin G potassium 3 Million Units in 0.9% NaCl IV 50 mL IVPB (CANCELED)(Linked Group 1) 3 Million Units, at 100 mL/hr, Intravenous, EVERY 4 HOURS, First dose on Sat09/17/23 at 2215, Until Discontinued, Refrigerate, Indication for anti-infective therapy: Suspected infection, Site of anti-infective therapy: Other, Other site of infection (free text): GBS Prophylaxis, Labor and Delivery 0047 ($ New Bag/Syringe - Provider: Jeny Gilliam)0117 (Stopped - Provider: Jeny Gilliam)0437 ($ New Bag/Syringe - Provider: Jeny Gilliam)0444 (Stopped - Provider: Jeny Gilliam)0546 (Not Administered - Provider: Jeny Gilliam - Reason: Patient Condition) penicillin G potassium 5 Million Units in 0.9% NaCl IV 100 mL IVPB (COMPLETED)(Linked Group 1) 5 Million Units, at 200 mL/hr, Intravenous, ONCE, 1 dose, On Sat09/17/23 at 1815, Indication for anti-infective therapy: Suspected infection, Site of anti-infective therapy: Other, Other site of infection (free text): GBS Prophylaxis, Labor and Delivery 1914 (Held - Provider: Debbi Solomon RN - Reason: Patient Condition)2047 ($ New Bag/Syringe - Provider: Jeny Gilliam)2117 (Stopped - Provider: Jeny Gilliam) vitamin with iron tablet 1 tablet 1 tablet, Oral, DAILY, First dose on Sat09/18/23 at 0900, Until Discontinued, 09 ($ Given - Provider: Debbi Solomon RN) 0938 ($ Given - Provider: Shantelle Ramesh, WILFREDO) sertraline (Zoloft) tablet 150 mg 150 mg, Oral, DAILY, First dose on Sat09/18/23 at 0900, Until Discontinued, Avoid concurrent administration wth grapefruit juice 09 ($ Given - Provider: Debbi Solomon RN) 09 ($ Given - Provider: Shantelle Ramesh, WILFREDO) Continuous Medication Order 09/17/2023 09/18/2023 09/19/2023 lactated ringers infusion (CANCELED) at 125 mL/hr, Intravenous, CONTINUOUS, Starting on Sat09/17/23 at 1815, Until Sat09/17/23 at 2317, Start IV with 18 gauge angiocath., Labor and Delivery 1914 (Held - Provider: Debbi Solomon RN - Reason: Patient Condition)2045 ($ New Bag/Syringe - Provider: Jeny Gilliam)2127 (Stopped - Provider: Jeny Gilliam) lactated ringers infusion (CANCELED) at 125 mL/hr, Intravenous, CONTINUOUS, Starting on Sat09/18/23 at 0000, Until Sat09/18/23 at 0603 2356 (*Current Bag - New Order - Provider: Jeny Gliliam) 0704 (Stopped - Provider: Jeny Gilliam) oxytocin (Pitocin) 30 units in 500 mL 0.9% sodium chloride infusion (CANCELED) 0-20 deloris-units/min (0-20 mL/hr), Intravenous, CONTINUOUS, Starting on Sat09/18/23 at 0000, Until Sat09/18/23 at 0603, Titration Parameters: Standard Dose, Indication: Induction/Augmentation of labor, Initiate infusion at: 2 deloris-units/min, Titrate infusion by: 2 deloris-units/min, Titrate no sooner than every: 30 minutes, To maintain: May increase or decrease infusion to maintain contractions 2-3 minutes apart in the presence of reassuring heart tracing, but not to exceed 5 contractions in 10 minutes or exceed max infusion rate., Decrease Oxytocin rate: May decrease Oxytocin by half current dose in the presence of uterine tachysystole (greater than 5 contractions in 10 minutes) and notify provider. May decrease oxytocin by half current dose at the time of rupture of membranes once verified with provider, Pause Oxytocin infusion: Pause oxytocin immediately for abnormal or indeterminate status, and notify provider. 0013 ($ New Bag/Syringe - Provider: Jeny Gilliam)0054 (Rate Change - Provider: Jeny Gilliam)0124 (Rate Change - Provider: Jeny Gilliam)0204 (Rate Change - Provider: Jeny Gilliam)0523 (Stopped - Provider: Jeny Gilliam) oxytocin (Pitocin) 30 units in 500 mL 0.9% sodium chloride infusion () 125-1,000 deloris-units/min (125-1,000 mL/hr), Intravenous, CONTINUOUS, Starting on Sat09/18/23 at 0115, Until Sat09/18/23 at 0514, Infuse first bag post-delivery at 1,000 deloris-units/min, then decrease rate to 250 deloris-units/min until discontinued. 0037 (Held - Provider: Jeny Gilliam - Reason: Patient Condition)0523 (*Current Bag - New Order - Provider: Jeny Gilliam)0543 ($ New Bag/Syringe - Provider: Jeny Gilliam)0704 (Stopped - Provider: Jeny Gilliam) PRN Medication Order 09/17/2023 09/18/2023 09/19/2023 acetaminophen (Tylenol) tablet 650 mg 650 mg, Oral, EVERY 6 HOURS PRN, Mild Pain, Starting on Sat09/18/23 at 0603, Until [place] 09/19/23 at 1923, Patient preference for lesser PRN pain meds may be honored when the patient requests a less strong medication, a lower dose, or a less intrusive route of administration when the lesser drug, dose and route have been ordered for the patient. This patient request must be documented in the MAR. If both oral and IV options are ordered for the same pain severity, give oral first unless patient cannot tolerate oral intake, 1411 ($ Given - Provider: Debbi Solomon RN)2008 ($ Given - Provider: Jeny Gilliam) 0229 ($ Given - Provider: Jeny Gilliam)0938 ($ Given - Provider: Shantelle Ramesh RN) benzocaine-menthol (Dermoplast) spray Topical, 4 TIMES DAILY PRN, Mild Pain, Starting on Sat09/18/23 at 0646, Until Sat09/19/23 at 1923, . WASTE DISPOSAL INSTRUCTION: Send to Pharmacy for Disposal. . 0657 ($ Given - Provider: Jeny Gilliam) calcium carbonate (Tums) chew tablet 2 tablet 2 tablet, Oral, EVERY 4 HOURS PRN, GI Upset, Starting on Sat09/18/23 at 0603, Until Sat09/19/23 at 1923, diphenhydrAMINE (Benadryl) capsule 25 mg 25 mg, Oral, AT BEDTIME PRN, Insomnia, Starting on Sat09/18/23 at 0603, Until Sat09/19/23 at 1923, docusate sodium (Colace) capsule 100 mg 100 mg, Oral, 2 TIMES DAILY PRN, Constipation, Starting on Sat09/18/23 at 0603, Until [place] 09/19/23 at 1923, 0911 ($ Given - Provider: Debbi Solomon RN)2008 ($ Given - Provider: Jeny Gilliam) lactated ringers infusion (CANCELED) at 999 mL/hr, Intravenous, PRN, Epidural placement., Starting on Sat09/17/23 at 1952, Until Sat09/18/23 at 0603 2248 ($ New Bag/Syringe - Provider: Jeny Gilliam)2356 (Stopped - Provider: Jeny Gilliam) lanolin topical Topical, PRN, Dry Skin, Starting on Sat09/18/23 at 0646, Until Sat09/19/23 at 1923, Apply to sore/cracked nipples 0657 ($ Given - Provider: Jeny Gilliam) ondansetron (disintegrating) (Zofran ODT) tablet 4 mg 4 mg, Oral, EVERY 6 HOURS PRN, Nausea/Vomiting, Starting on Sat09/18/23 at 0603, Until Sat09/19/23 at 1923, Dissolved orally on tongue, ondansetron (Zofran) injection 4 mg (CANCELED) 4 mg, Intravenous, EVERY 6 HOURS PRN, Nausea/Vomiting, Starting on Sat09/17/23 at 2317, Until Sat09/18/23 at 0603, Administer over 2 to 5 minutes. 0338 ($ Given - Provider: Jeny Gilliam) tranexamic acid (Cyklokapron) injection 1,000 mg 1,000 mg, Intravenous, ONCE PRN, OB Hemorrhage, 1 dose, Starting on Sat09/18/23 at 0603, Until [place] 09/19/23 at 1923, Given by Anesthesia if available otherwise nurse may give IV push over 10 minutes., witch ryan-glycerin (Tucks) pad Topical, PRN, Hemorrhoids, Starting on Sat09/18/23 at 0603, Until [place] 09/19/23 at 1923, Apply to affected area., 0657 ($ Given - Provider: Jeny Gilliam) No Frequency Medication Order 09/17/2023 09/18/2023 09/19/2023 ondansetron (Zofran) injection ADS Med (COMPLETED) 1 dose, Starting on Sat09/17/23 at 2310, Until Sat09/17/23 at 2312, Created by cabinet override 2311 ($ Given - Provider: Jeny Gilliam) Linked Groups Order Group 1: penicillin G potassium 5 Million Units in 0.9% NaCl IV 100 mL IVPB (COMPLETED)Jump to med 5 Million Units, at 200 mL/hr, Intravenous, ONCE, 1 dose, On Sat09/17/23 at 1815, Indication for anti-infective therapy: Suspected infection, Site of anti- infective therapy: Other, Other site of infection (free text): GBS Prophylaxis, Labor and Delivery Followed by penicillin G potassium 3 Million Units in 0.9% NaCl IV 50 mL IVPB (CANCELED)Jump to med 3 Million Units, at 100 mL/hr, Intravenous, EVERY 4 HOURS, First dose on Sat09/17/23 at 2215, Until Discontinued, Refrigerate, Indication for anti-infective therapy: Suspected infection, Site of anti-infective therapy: Other, Other site of infection (free text): GBS Prophylaxis, Labor and Delivery documented in this encounter 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
--- OUTSIDE RECORDS SUMMARY | 2024-06-17 07:42 | XMS_ITS | Encounter Summary ---
Author Organization [facility] Address [address] [facility] [place] [address] Care Team Providers Care Patch Finisher Name Role Phone Gordon Mccullough MD Primary Care Provider [phone] Reason for Visit * Auth/Cert (Routine) Specialty Diagnoses / Procedures Referred By Contac t Referred To Contact Referral ID Status Reason Start Date Expiration Date Visits Re quested Visits Authorized [id number] 1 1 Encounter Details Date Type Department Care Team (Late st Contact Info) Description 09/17/2023 11:10 PM CDT Anesthesia Event [facility] [address] [place] [address] Valdez Terry MD [address] [id number] Serene Phelps APRN-ROCAEL [address] [phone] Anesthesia Record Procedure Summary Procedure Name Responsible Anesthesiologist Anesthesia Start Time Anesthesia Stop Time EPIDURAL BLOCK Valdez Terry MD 09/17/2301 0409/18/23 0522 Events Date Time Event Comment 09/17/2023 2255 2310 An Start 2312 PT Reassessment 2313 Timeout Anesthesia part icipated in timeout at the time documented in the record by nursing. 2319 Face Time 2320 Test Dose 2327 Bolus Dose 2332 Electnc Sig This record is electronically signed by the providers listed under staff. 09/18/2023 0522 An Stop Meds Name Total lidocaine 1.5% - epinephrine (PF) 1:200, 000 injection 5 mL fentanyl 2 mcg/ml and ropivicaine 0.2% i n nacl 59.17 mL * Agents No agents on file. * Blood No blood administrations on file. Lines, Drains, and Airways Type Details Placement Removal Urethral Catheter 06/18/23; 2344; Surya RN; 10 mL; Yes, Seal Intact; 1; Well; 09/18/23; 0345; Per protocol; Surya VILLALOBOS 06/18/23 234 by Jeny Gilliam 09/18/23 0345 by Jeny Gilliam Peripheral IV Date: 09/17/23; Time : 172; Orientation: Posterior, Right; Location: Forearm; Gauge: 18 G 09/17/23 172 by Debbi Solomon RN 09/18/232012 by Jeny Gilliam Epidural Date: 09/17/23; Time : 231; Placed By: Serene Phelps CRNA 09/17/232318 by Jeny Gilliam 09/18/23 0845 by Debbi Solomon RN documented in this encounter Social History Tobacco Use Types Packs/Day Years [...] Recorded Patient Health Questionnaire-2 Score 0 08/26/2023 [facility] of Occupat ional Health - Occupational Stress [...] place to sleep or slept in a fpc (including now)? No 09/17/2023 [place] Depression Scale Answer Date Recorded [place] Depression Scale Total 0 09/19/2023 The thought of harming myself has occurred to me . Never 09/19/2023 Comments Yes Sex and Gender Information Value Date Recorded Sex Assigned at Female 08/04/2021 1:55 PM CLINICAL APPLICATIONS MANAGER Gender Identity Female 08/04/2021 1:55 PM CLINICAL APPLICATIONS MANAGER Sexual Orientation Not on file documented as [...] No 09/17/2023 documented as of this encounter Progress Notes * Serene Phelps, ARABELLA-MAC OPERATOR - 09/18/2023 6:52 AM CDT ANESTHESIA POSTOP EVALUATION NOTE Procedure: EPIDURAL BLOCK Tati Cm is a 32 year old female Patient Vitals for the past 6 hrs: BP SpO2 Pain Rating Score #1 Pain Scale/Observation Pulse - (SPO2/Cuff) 09/18/23 0100 141/80 -- 0 N 67 bpm 09/18/23 0116 125/75 -- -- -- 65 bpm 09/18/23 0131 114/72 -- -- -- 64 bpm 09/18/23 0146 110/66 -- -- -- 63 bpm 09/18/23 0200 -- -- 0 N -- 09/18/23200 105/70 -- -- -- 63 bpm 09/18/23 0216 107/64 -- -- -- 62 bpm 09/18/23230 107/66 -- -- -- 65 bpm 09/18/23 0246 121/80 -- -- -- 62 bpm 09/18/23 0300 -- -- 0 N -- 09/18/23300 129/81 -- -- -- 59 bpm 09/18/23 0316 130/82 -- -- -- 60 bpm 09/18/23 0330 -- 100 % -- -- 70 bpm 09/18/23 0334 129/94 -- -- -- 97 bpm 09/18/23 0335 -- 100 % -- -- 98 bpm 09/18/23 0340 -- 100 % -- -- 85 bpm 09/18/23 0345 -- 100 % -- -- 85 bpm 09/18/23 0346 124/78 -- -- -- 92 bpm 09/18/23 0350 -- 99 % -- -- 86 bpm 09/18/23 0400 -- -- 0 N -- 09/18/23400 119/78 -- -- -- 76 bpm 09/18/23 0410 -- 99 % -- -- 80 bpm 09/18/236 107/79 -- -- -- 73 bpm 09/18/23 0425 -- 100 % -- -- 69 bpm 09/18/23 0430 -- 99 % -- -- 77 bpm 09/18/231 94/64 -- -- -- 108 bpm 09/18/23 0435 -- 99 % -- -- 96 bpm 09/18/23 0440 -- 99 % -- -- 84 bpm 09/18/23 0445 -- 100 % -- -- 78 bpm 09/18/236 123/78 -- -- -- 88 bpm 09/18/23 0500 132/82 -- 0 N 84 bpm 09/18/23 0501 132/82 -- -- -- 84 bpm 09/18/23 0510 -- 99 % -- -- 105 bpm 09/18/23 0515 -- 100 % -- -- 87 bpm 09/18/23 0516 (!) 159/139 -- -- -- 137 bpm 09/18/23 0520 -- 100 % -- -- 124 bpm 09/18/23 0526 135/82 -- -- -- 83 bpm 09/18/23 0533 146/78 -- -- -- 90 bpm 09/18/23 0545 -- -- 0 N -- 09/18/23 0602 134/66 -- -- -- 80 bpm 09/18/23 0616 117/86 -- -- -- 84 bpm 09/18/23 0633 118/66 -- -- -- 77 bpm 09/18/23 0640 -- 97 % -- -- 71 bpm 09/18/23 0645 -- 96 % 4 N 71 bpm 09/18/23 0646 125/80 -- -- -- 68 bpm Anesthesia Type: epidural * No Diagnosis Codes entered * Mental Status: awake, alert and oriented Neuro Status: No numbness, tingling or visual disturbances Respiratory Function: natural Cardiac Function: stable Postop Pain: acceptable to the patient Postop Hydration: adequate Postop Nausea: none Assessment: no apparent anesthetic complications and patient tolerated procedure well Patient Disposition: Release from Anesthesia Care NOTABLE EVENTS: No notable events documented. * Serene Phelps, VICTIM ADVOCATE-MAC OPERATOR - 09/17/2023 10:55 PM CDT ANESTHESIA PREOPERATIVE EVALUATION NOTE Procedure: EPIDURAL BLOCK Vitals: Patient Vitals for the past 6 hrs: BP Temp Pulse Resp SpO2 Pain Rating Score #1 09/17/232099 -- -- -- -- -- 0 09/17/231999 -- 98.1 ??F (36.7 ??C) -- -- -- 0 09/17/23 1900 -- -- -- -- -- 0 09/17/23 1845 136/91 -- -- 16 -- -- 09/17/23 1830 -- 97.9 ??F (36.6 ??C) -- -- -- -- 09/17/23 1820 -- -- -- -- 99 % -- 09/17/231814 -- -- -- -- 98 % -- 09/17/23 181 -- -- -- -- 98 % -- 09/17/23 180 -- -- -- -- 99 % -- 09/17/23 1804 128/88 -- 78 16 99 % 0 LMP: Patient's last menstrual period was 12/17/2022 (exact date). OB Status: ANESTHESIA PRE-EVALUATION NOTE The patient is a current non-smoker. Physical Exam: Orientation X3 Airway/Mallampati Score: I Mouth Opening Distance: 2.5 fingerwidths Neck ROM: full TM Distance: > 3 FB Teeth: normal Heart: normal - S1 S2 Lungs: clear to ausculation bilaterally Abdomen Exam: gravid Diagnostic Tests: Lab(s) reviewed: Yes. ANESTHESIA PLAN ASA Score: 2 NPO Status: Continuous clear liquids Anesthesia Plan: epidural Planned Postop Destination: OB Anesthetic plan was discussed with: patient Anesthetic Plan discussion was: Consented The patient's procedural Anesthetic Plan was discussed with the anesthesiologist. BMI, Height, Weight Tobacco History Estimated body mass index is 26.47 kg/m?? as calculated from the following: Height as of this encounter: 1.803 m (5' 11 ). Weight as of this encounter: 86.1 kg (189 lb 12.8 oz). Social History Tobacco Use Smoking Status Never Smokeless Tobacco Never Alcohol History Drug History Social History Substance and Sexual Activity Alcohol Use Not Currently ??? Alcohol/week: 4.0 standard drinks of alcohol ??? Types: 4 Alcoholic drink(s) per week Social History Substance and Sexual Activity Drug Use Never Outpatient Medications: Inpatient Medications: Outpatient Medications Marked as Taking for the 09/17/23 encounter (Hospital Encounter) with Karin Pinto MD Medication Sig Last Dose ??? ferrous sulfate Take 1 (one) tablet by mouth daily with breakfast Past Week ??? fish oil/omega-3 fatty acids Take 1 (one) capsule by mouth 3 times daily with meals 09/17/2023 [id number] ??? plus Take 1 (one) tablet by mouth once daily 09/17/2023 at 0900 ??? sertraline Take 1.5 (one and one-half) tablets by mouth once daily 09/17/2023 at 0900 Current Facility-Administered Medications Medication Dose Last Admin ??? 0.9% NaCl 3 mL And ??? 0.9% NaCl 1-10 mL ??? lactated ringers Stopped at 09/17/232127 ??? lactated ringers New Bag at 09/17/23 224 ??? lactated ringers ??? miSOPROStol 50 mcg 50 mcg at 09/17/23 1844 ??? penicillin g potassium 3 Million Units ??? terbutaline 0.25 mg ??? tranexamic acid 1,000 mg Allergies: No Known Allergies Relevant Problems Problem List: Patient Active Problem List Diagnosis Date Noted ??? Anxiety in , antepartum ([facility]) 09/17/2023 Priority: Not Prioritized ??? 39 weeks gestation of ([facility]) 09/17/2023 Priority: Not Prioritized ??? Anxiety 07/01/2019 Priority: Not Prioritized Medical History: Past Medical History: Diagnosis Date ??? Anxiety ??? Depression Surgical History: Past Surgical History: Procedure Laterality Date ??? Breast Augmentation 2009 Replacement 11/2022 [employer] Status: Patient's last menstrual period was 12/17/2022 (exact date). OB History Para Term AB Living 1 0 0 0 0 0 SAB IAB Ectopic Multiple Live Births 0 0 0 0 0 # Outcome Date GA Lbr Brian/2nd Weight Sex Delivery Anes PTL Lv 1 Current Obstetric Comments No hx of abnormal PAP smears No hx of STIs Covid Vaccine: Lab Results: Recent Labs Component Name 09/17/231811 WBC 9.0 RBC 4.34 HCT 38.6 HGB 13.7 PLTCOUNT 209 MCV 88.9 MCH 31.6 MCHC 35.5 MPV 11.8* Recent Labs Component Name 09/17/23 1923 09/17/231811 ABORH A POS A POS ABSCG - NEG No results found for requested labs within last 120 days. No results found for requested labs within last 120 days. documented in this encounter Procedure Notes * Serene Phelps APRN-CRNA - 09/17/2023 11:33 PM CDTAssociated Order(s): Neuraxial Block Neuraxial Block Note Pre-Procedure: Procedure Name: Neuraxial Block Patient Location: OB Indications: labor analgesia Pre-Anesthetic Checklist: Patient identified, IV Checked, Risks and benefits discussed, Surgical consent verified, Monitors and equipment, Site examined, Pre-op evaluation done, Time-out performed, Informed consent obtained, Questions answered/anesthesia questions answered and Allergies reviewed Anticoagulation/ Anti-thrombosis status confirmed? Yes Monitors: BP and continuous pluse ox Patient Condition: awake Patient Sedated? No Procedure: Block Type: Epidural Prep: Duraprep Sterile Field: mask, cap/hat, sterile established and sterile gloves Approach: midline Skin was localized? Yes Epidural Block: Is this procedure for postop pain? No Needle Type: Tuohy Needle gauge: 17 G Needle length: 90 mm Placement Site: L3-L4 Number of Attempts: 1 Loss of Resistance: 5 saline Catheter length at skin (cm): 9 CSF Aspirated from catheter: No Blood Aspirated: No Test Dose: lidocaine 1.5% with 1-200,000 epinephrine 3 mL at 09/17/2023 11:20 PM Test Dose Response: No Epidural Infusion Medications: Ropivacaine: 0.2% with Fentanyl 2mcg/mL in NS , at 10 mL/hr Degree of difficulty: none Procedure Tolerance: tolerated well Sensory Level: lower level Motor Blockade: No Position post procedure: head of bed elevated 30 degrees, left uterine displacement Vital Signs: Vital signs monitored and stable throughout. See anesthesia record for details., Vitalsigns moniitored and stable throughout. See nursing vitals flowsheet for details., heart tones monitored and stable throughout. Staff: Anesthesia Provider: Serene Phelps APRN-CRNA - performed the procedure documented in this encounter Miscellaneous Notes * Anesthesia Transfer of Care - Serene Phelps APRN-CRNA - 09/18/2023 5:22 AM CDT ANESTHESIA TRANSFER OF CARE NOTE Today's Date: 09/18/2023 Date of : 1990 Patient: Tati Cm * No procedures listed * Surgeon(s): * No surgeons listed * Preop Diagnosis: * No Diagnosis Codes entered * Pre-op Meds (At 09/18/23 0652) Start Stop Status Route Frequency Ordered 09/18/23 0615 0.9% NaCl injection 3 mL -- Dispensed IK EVERY 8 HOURS 09/18/23 0603 09/18/23 06 0.9% NaCl injection 3 mL -- Dispensed IK PRN 09/18/23 0603 09/18/23 06 acetaminophen (Tylenol) tablet 650 mg -- Verified PO EVERY 6 HOURS PRN 09/18/23 0603 09/18/23 0646 benzocaine-menthol (Dermoplast) spray -- Sent TP 4 TIMES DAILY PRN 09/18/23 0647 09/18/23 06 calcium carbonate (Tums) chew tablet 2 tablet -- Verified PO EVERY 4 HOURS PRN 09/18/23 0603 09/18/23 0603 diphenhydrAMINE (Benadryl) capsule 25 mg -- Verified PO AT BEDTIME PRN 09/18/23 0603 09/18/23 06 docusate sodium (Colace) capsule 100 mg -- Verified PO 2 TIMES DAILY PRN 09/18/23 0603 09/18/23 0615 ibuprofen (Motrin) tablet 600 mg -- Verified PO EVERY 6 HOURS 09/18/23 0603 09/18/23 0646 lanolin topical -- Sent TP PRN 09/18/23 0647 09/18/23 0603 ondansetron (disintegrating) (Zofran ODT) tablet 4 mg -- Verified PO EVERY 6 HOURS PRN 09/18/23 0603 09/18/23 0603 tranexamic acid (Cyklokapron) injection 1,000 mg -- Verified IV ONCE PRN 09/18/23 0603 09/18/23 0603 witch ryan-glycerin (Tucks) pad -- Verified TP PRN 09/18/23 0603 * No Diagnosis Codes entered * . No Known Allergies Vitals: Patient Vitals for the past 3 hrs: BP SpO2 Pain Rating Score #1 09/18/23 0646 125/80 -- -- 09/18/23 0645 -- 96 % 4 09/18/23 0640 -- 97 % -- 09/18/23 0633 118/66 -- -- 09/18/23 0616 117/86 -- -- 09/18/23 0602 134/66 -- -- 09/18/23 0545 -- -- 0 09/18/23 0533 146/78 -- -- 09/18/23 0526 135/82 -- -- 09/18/23 0520 -- 100 % -- 09/18/23 0516 (!) 159/139 -- -- 09/18/23 0515 -- 100 % -- 09/18/23 0510 -- 99 % -- 09/18/23 0501 132/82 -- -- 09/18/23 0500 132/82 -- 0 09/18/23 0446 123/78 -- -- 09/18/23 0445 -- 100 % -- 09/18/23 0440 -- 99 % -- 09/18/23 0435 -- 99 % -- 09/18/23 0431 94/64 -- -- 09/18/23 0430 -- 99 % -- 09/18/23 0425 -- 100 % -- 09/18/23 0416 107/79 -- -- 09/18/23 0410 -- 99 % -- 09/18/23 0401 119/78 -- -- 09/18/23 0400 -- -- 0 Lines, Drains, and Airways Type Details Placement Removal Peripheral IV Date: 09/17/23; Time: 1719; Orientation: Posterior, Right; Location: Forearm; Gauge: 18 G 09/17/231719 by Debbi Solomon RN Epidural Date: 09/17/23; Time: 2318; Placed By: Serene Phelps CRNA 09/17/232318 by Jeny Gilliam Intraprocedure I/O Totals None Patient Transfer Location: Obstetrics Transport Airway: spontaneous respirations Complications: None Handoff Given? Yes Checklist or Protocol - The wood handoff elements that must be included in the transfer of care checklist include: 1. Identification of patient. 2. Identification of responsible practitioner (PACU nurse or advanced practitioner). 3. Discussion of pertinent medical history. 4. Discussion of the surgical/procedure course (procedure, reason for surgery, procedure performed). 5. Intraoperative anesthetic management and issue/concerns. 6. Expectations/Plans for the early post-procedure period. 7. Opportunity for questions and acknowledgement of understanding of report from the receiving PACUteam. JOE Sequeira documented in this encounter Plan of Treatment Upcoming Encounters Date Type Department Care Team (Late st Contact Info) Description 07/21/2024 2:20 PM CLINICAL APPLICATIONS MANAGER Office Visit [facility] - Internal Medicine [address] [place] [address] Gordon Mccullough MD [address] [place] [address] documented as of this encounter Procedures Procedure Name Priority Date/Time Associated Diagnosis Comments NEURAXIAL BLOCK Routine 09/17/2023 11:33 PM CDT documented in this encounter Results * EPIDURAL BLOCK PERF (09/17/2023 11:33 PM CDT) Narrative Serene Phelps APRN-CRNA - 09/17/2023 11:33 PM CDT Serene Phelps APRN-CRNA ? 09/17/2023 11:34 PM Neuraxial Block Note ?? Pre-Procedure: ?? Procedure Name: ??Neuraxial Block Patient Location: ??OB Indications: ??labor analgesia Pre-Anesthetic Checklist: ??Patient identified, IV Checked, Risks and benefits discussed, Surgical consent verified, Monitors and equipment, Site examined, Pre-op evaluation done, Time-out performed, Informed consent obtained, Questions answered/anesthesia questions answered and Allergies reviewed Anticoagulation/ Anti-thrombosis status confirmed? ??Yes Monitors: ??BP and continuous pluse ox Patient Condition: ??awake Patient Sedated? ??No Procedure: ?? Block Type: ??Epidural Prep: ??Duraprep Sterile Field: ??mask, cap/hat, sterile established and sterile gloves Approach: ??midline Skin was localized? ??Yes Epidural Block: ?? Is this procedure for postop pain? ??No Needle Type: ??Tuohy Needle gauge: ??17 G Needle length: ??90 mm Placement Site: ??L3-L4 Number of Attempts: ??1 Loss of Resistance: ??5 ?? saline Catheter length at skin (cm): ??9 CSF Aspirated from catheter: ??No Blood Aspirated: ??No Test Dose: ??lidocaine 1.5% with 1-200,000 epinephrine ?? 3 ??mL at ??09/17/2023 11:20 PM Test Dose Response: ??No Epidural Infusion Medications: ? Ropivacaine: ??0.2% with Fentanyl 2mcg/mL in NS , ??at 10 mL/hr Degree of difficulty: ??none Procedure Tolerance: ??tolerated well Sensory Level: ??lower level Motor Blockade: ??No Position post procedure: ??head of bed elevated 30 degrees, left uterine displacement Vital Signs: ??Vital signs monitored and stable throughout. ??See anesthesia record for details., Vital signs moniitored and stable throughout. ??See nursing vitals flowsheet for details., heart tones monitored and stable throughout. Staff: ?? Anesthesia Provider: ??Serene Phelps APRN-MAC OPERATOR ?? - ?? performed the procedure Valdez Terry MD GENERAL ANESTH ESIA ORDERABLES documented in this encounter Visit Diagnoses Not on filedocumented in this encounter Administered Medications Inactive Administered Medications - up to 3 most recent administrations Medication Order MAR Action Action Date Dose Rate Site fentaNYL 2 mcg/ml and ROPivacaine 0.2% in 0.9% nacl epidural Epidural, CONTINUOUS PRN, Starting on Sat09/17/23 at 2327, Until Sat09/18/23 at 0652, Anesthesia Intra-op $ New Bag/Syringe 09/17/2023 11:27 PM CDT 10 mL/hr 10 mL/hr lidocaine 1.5% (Xylocaine-MPF)- EPINEPHrine 1:200,000 injection Epidural, PRN, Starting on Sat09/17/23 at 2320, Until Sat09/18/23 at 0652, Anesthesia Intra-op $ Given 09/17/2023 11:24 PM CDT 2 mL $ Given 09/17/2023 11:20 PM CDT 3 mL documented in this encounter Care Teams Patch Finisher Relationship Specialty Start Date End Date Gordon Mccullough MD PCP - General Family Medicine 08/08/21 documented as of this encounter
--- OUTSIDE RECORDS SUMMARY | 2024-06-17 07:42 | XMS_ITS | Encounter Summary ---
Author Organization [facility] Address [address] [place] [address] Care Team Providers Care Applications Analyst Name Role Phone Gordon Mccullough MD Primary Care Provider [phone] Yael Barron RES HABILITATION ASSISTANT Unavailable [phone] Reason for Visit * Reason Onset Date Comments Reschedule Appointment 08/26/2023 Encounter Details Date Type Department Care Team (Late st Contact Info) Description 08/26/2023 Telephone [facility] - SCHOOL BUS ATTENDANT [address] [place] [address], [address] [place] [phone] Karin Pinto MD [address] [place] [phone] Reschedule Appointment Social History Tobacco Use Types Packs/Day Years [...] Recorded Patient Health Questionnaire-2 Score 0 08/26/2023 [facility] [place] of Occupat ional Health - Occupational Stress [...] place to sleep or slept in a skilled nursing (including now)? No 09/17/2023 [place] Depression Scale Answer Date Recorded [place] Depression Scale Total 0 09/19/2023 The thought of harming myself has occurred to me . Never 09/19/2023 Comments Yes Sex and Gender Information Value Date Recorded Sex Assigned at Female 08/04/2021 1:55 PM IS ARCHITECT Gender Identity Female 08/04/2021 1:55 PM IS ARCHITECT Sexual Orientation Not on file documented as of this encounter Miscellaneous Notes * Telephone Encounter - Jayde Kingston MA - 08/26/2023 10:04 AM CDT LVM to see if patient can come in at 9:00 or that after noon at 2:20. told patient to call back to let me know which one works better documented in this encounter Plan of Treatment Upcoming Encounters Date Type Department Care Team (Late st Contact Info) Description 07/21/2024 2:20 PM IS ARCHITECT Office Visit [facility] - Internal Medicine [address] [facility] [place] [address] Gordon Mccullough MD [address] [facility] [place] [address] documented as of this encounter Visit Diagnoses Not on filedocumented in this encounter Care Teams Applications Analyst Relationship Specialty Start Date End Date Gordon Mccullough MD PCP - General Family Medicine 08/08/21 Yael Barron MSW Outpatient Safety Coordinator Care Management 09/20/2309/23 documented as of this encounter
--- OUTSIDE RECORDS SUMMARY | 2024-06-17 07:42 | XMS_ITS | Encounter Summary ---
Author Organization [facility] Address [address] [place] [address] Care Team Providers Care Rigging Supervisor Name Role Phone Gordon Mccullough MD Primary Care Provider [phone]- [phone] Reason for Visit * Reason Comments Procedure Encounter Details Date Type Department Care Team (Late st Contact Info) Description 12/03/2023 3:00 PM CDT Office Visit [facility] Medical [employer] - SENIOR MANAGER ASSET PROTECTION [address] [place] [address], [address] [place] [phone] Karin Pinto MD [address] [place] [phone] Encounter for IUD insertion (Primary Dx) Social History Tobacco Use Types Packs/Day Years Used Date Smoking Tobacco: Never Smokeless Tobacco: Never Tobacco Cessation:Counseling Given: Not Answered Alcohol Use Standard Drinks/Week Comments Not Currently 4 (1 standard drink = 0.6 oz pur e alcohol) Overall Financial Resource Strain (CARDIA) Answe r Date Recorded How hard is it for you to pa y for the very basics like food, housing, medical care, and heating? Not hard at all 09/17/2023 PHQ-2 Answer Date Recorded Patient Health Questionnaire-2 Score 0 11/26/2023 [place] of Occupat ional Health - Occupational Stress [...] a senior living (including now)? No 09/17/2023 [place] Depression Scale Answer Date Recorded [place] Depression Scale Total 3 10/29/2023 The thought of harming myself has occurred to me . Never 10/29/2023 Sex and Gender Information Value Date Recorded Sex Assigned at Female 08/04/2021 1:55 PM CONTROL SYSTEMS ENGINEER Gender Identity Female 08/04/2021 1:55 PM CONTROL SYSTEMS ENGINEER Sexual Orientation Not on file documented as of this encounter Last Filed Vital Signs Vital Sign Reading Time Taken Comments Blood Pressure 118/70 12/03/2023 3:09 PM CDT Pulse - - Temperature - - Respiratory Rate - - Oxygen Saturation - - Inhaled Oxygen Concentration - - Weight 80.3 kg (177 lb) 12/03/2023 3:09 PM CDT Height 180.3 cm (5' 11 ) 12/03/2023 3:09 PM CDT Body Mass Index 24.69 12/03/2023 3:09 PM CDT documented in this encounter Functional [...] as of this encounter Progress Notes * Karin Pinto MD - 12/03/2023 3:28 PM CDT Subjective: Tati Cm is a 33 year old female who presents for insertion of a Kyleena IUD. Patient's last menstrual period was 11/27/2023 (exact date). Indication: undesired fertility We have discussed the pros and cons, potential risks and benefits and alternatives. She has received the informational booklet, her questions are answered and she consents to proceed. Past Medical History: Diagnosis Date Anxiety Depression Past Surgical History: Procedure Laterality Date Breast Augmentation 2009 Replacement 11/2022 Family History Problem Relation Name Age of Onset Depression Mother Cancer - Breast Neg Hx Cancer - Uterine Neg Hx Cancer - Ovarian Neg Hx Cancer - Colon Neg Hx Current Outpatient Medications Medication Sig Dispense Refill fish oil/omega-3 fatty acids (Promega;Cardi-[place] 3) 1000 MG capsule Take 1 (one) capsule by mouth 3 times daily with meals Vit-Fe Fumarate-FA ( plus) 27-1 MG tablet Take 1 (one) tablet by mouth once daily 30 tablet 11 sertraline (Zoloft) 100 MG tablet Take 1.5 (one and one-half) tablets by mouth once daily Current Facility-Administered Medications Medication Dose Route Frequency Provider Last Rate Last Admin levonorgestrel (Kyleena) IUD 1 Intra Uterine Device 1 Intra Uterine Device Intrauterine Once Karin Pinto MD No Known Allergies Social History Socioeconomic History Marital status: Spouse name: Rosendo Number of children: Not on file Years of education: Not on file Highest education level: Not on file Occupational History Not on file Tobacco Use Smoking status: Never Smokeless tobacco: Never Vaping Use Vaping Use: Never used Substance and Sexual Activity Alcohol use: Not Currently Alcohol/week: 4.0 standard drinks of alcohol Types: 4 Alcoholic drink(s) per week Drug use: Never Sexual activity: Yes Partners: Male control/protection: I.U.D. Comment: kyleena 12/03/23 Other Topics Concern Not on file Social History Narrative Not on file Social Determinants of Health Financial Resource Strain: Low Risk (09/17/2023) Overall Financial Resource Strain (CARDIA) Difficulty of Paying Living Expenses: Not hard at all Food Insecurity: No Food Insecurity (09/17/2023) Hunger Vital Sign Worried About Running Out of Food in the Last Year: Never true Ran Out of Food in the Last Year: Never true Transportation Needs: No Transportation Needs (09/17/2023) PRAPARE - Transportation Lack of Transportation (Medical): No Lack of Transportation (Non-Medical): No Stress: No Stress Concern Present (09/17/2023) [place] of Occupational Health - Occupational Stress Questionnaire Feeling of Stress : Not at all Housing Stability: Low Risk (09/17/2023) Housing Stability Vital Sign Unable to Pay for Housing in the Last Year: No Number of Places Lived in the Last Year: 1 Unstable Housing in the Last Year: No Review of Systems Pertinent items are noted in HPI Objective: BP 118/70 (BP Location: Left arm) Ht 1.803 m (5' 11 ) Wt 80.3 kg (177 lb) Female Genitalia: vagina and cervix normal on speculum exam, uterine size normal, direction: anteverted. IUD Insertion Procedure Note Pre-operative Diagnosis: encounter for IUD insertion Post-operative Diagnosis: same Indications: undesired fertility Procedure Details Urine test was done and the result was negative. The risks (including infection, bleeding, pain, and uterine perforation) and benefits of the procedure were explained to the patient and written informed consent was obtained. Cervix cleansed with Betadine. Uterus sounded to 8 cm. IUD inserted without difficulty. String visible and trimmed. Patient tolerated procedure well. Condition: Stable Complications: None Assessment/Plan: If this is the sole means of contraception, use additional contraception for 2 weeks after insertion Call if experiencing increasing pain, cramps or heavy bleeding, or a foul- smelling discharge, fever> 100.4, chills, nausea or vomiting Follow-up for a string check in 4 weeks. All questions answered. Orders Placed This Encounter HCG URINE QUALITATIVE - POINT OF CARE (AMB) STL Order Specific Question: Release to patient Answer: Immediate PA INSERT INTRAUTERINE DEVICE levonorgestrel (Kyleena) IUD 1 Intra Uterine Device documented in this encounter Plan of Treatment Upcoming Encounters Date Type Department Care Team (Late st Contact Info) Description 07/21/2024 2:20 PM CONTROL SYSTEMS ENGINEER Office Visit [facility] - Internal Medicine [address] [facility] [place] [address] Gordon Mccullough MD [address] [facility] [place] [address] documented as of this encounter Procedures Procedure Name Priority Date/Time Associated Diagnosis Comments HCG URINE QUALITATIVE - POINT OF CARE (AMB) STL Routine 12/03/2023 3:28 PM CDT Encounter for IUD insertion documented in this encounter Results * HCG URINE QUALITATIVE - POINT OF CARE (AMB) STL (12/03/2023 3:28 PM CDT) HCG Qual Urine Negative Negative [facility] HCG Urine QC NEG neg NEGATIVE - POSITIVE [facility] HCG Urine QC POS pos NEGATIVE - POSITIVE [facility] Expiration Date 04/01/25 [facility] Lot # [id number] [facility] Urine URINE / Unknown 12/03/2023 3 :28 PM CDT Karin Pinto MD LAB - POINT OF CA RE ORDERABLES [facility] [address] , [facility] [address] [place], [place] [id number] [place] [address] documented in this encounter Visit Diagnoses Diagnosis Encounter for IUD insertion- Primary Encounter for insertion of intrauterine contraceptive device documented in this encounter Administered Medications Inactive Administered Medications - up to 3 most recent administrations Medication Order MAR Action Action Date Dose Rate Site levonorgestrel (Kyleena) IUD 1 Intra Uterine Device 1 Intra Uterine Device, Intrauterine, ONCE, 1 dose, On Sat12/03/23 at 1545 $ Given 12/03/2023 3:29 PM CDT 1 Intra Uterine Device documented in this encounter Care Teams Rigging Supervisor Relationship Specialty Start Date End Date Gordon Mccullough MD PCP - General Family Medicine 08/08/21 documented as of this encounter
--- OUTSIDE RECORDS SUMMARY | 2024-06-17 07:42 | XMS_ITS | Encounter Summary ---
Author Organization [facility] Address [address] [place] [address] Care Team Providers Care Certified Executive Chef Name Role Phone Gordon Mccullough MD Primary Care Provider [phone]- [phone] Yael Barron DIGITAL CONTENT SPECIALIST Unavailable [phone] Reason for Visit * Reason Onset Date Comments Second Grade Teacher Initial 09/23/2023 Encounter Details Date Type Department Care Team (Latest Contact Info) Description 09/23/2023 Transitional Care [facility] - Care Coordination [address] [place] [phone] Yael Barron MSW Second Grade Teacher Initial Social History Tobacco Use Types Packs/Day Years [...] Recorded Patient Health Questionnaire-2 Score 0 08/26/2023 [facility] of Occupat ional Health - Occupational Stress [...] place to sleep or slept in a group home (including now)? No 09/17/2023 [place] Depression Scale Answer Date Recorded [place] Depression Scale Total 0 09/19/2023 The thought of harming myself has occurred to me . Never 09/19/2023 Sex and Gender Information Value Date Recorded Sex Assigned at Female 08/04/2021 1:55 PM GRINDER SET UP OPERATOR INTERNAL Gender Identity Female 08/04/2021 1:55 PM GRINDER SET UP OPERATOR INTERNAL Sexual Orientation Not on file documented as [...] Telephone Encounter - Yael Barron MSW - 09/23/2023 11:02 AM CDT Outreach 2/3: SW attempted patient outreach regarding Transitional Care; LMOV regarding purpose of contact and request for return call. [facility] [phone] documented in this encounter Plan of Treatment Upcoming Encounters Date Type Department Care Team (Late st Contact Info) Description 07/21/2024 2:20 PM GRINDER SET UP OPERATOR INTERNAL Office Visit [facility] - Internal Medicine [address] [place] [address] Gordon Mccullough MD [address] [place] [address] documented as of this encounter Visit Diagnoses Not on filedocumented in this encounter Care Teams Certified Executive Chef Relationship Specialty Start Date End Date Gordon Mccullough MD PCP - General Family Medicine 08/08/21 Yael Barron MSW Outpatient Second Grade Teacher Care Management 09/20/2309/23 documented as of this encounter
--- OUTSIDE RECORDS SUMMARY | 2024-06-17 07:42 | XMS_ITS | Referral Summary ---
Author Organization [facility] Address [address] [facility] [place] [address] Care Team Providers Care Shipping Hand Name Role Phone Gordon Mccullough MD Primary Care Provider [phone] Source Comments [facility],non-owned Affiliates and Associated Physician Practices is amultiple site organization consisting of ambulatory clinics and hospital sitesin [place], [place], [place] and [place]. This disclosure is being madepursuant to the Care Everywhere program and may not contain all information available regarding this patient. Last updated 18.[facility] Allergies No known active allergies Medications * Be aware that medications may not be up to date on this document. Alwaysverify current medications with the patient. Medication Sig Dispensed Refills Start Date End Date Status sertraline (Zoloft) 100 MG tablet Take 1.5 (one and one-half) tablets by mouth once daily Active Vit-Fe Fumarate-FA ( plus) 27-1 MG tabletIndications:Visi t for confirmation of test result with physical exam Take 1 (one) tablet by mouth once daily 30 tablet 11 02/18/2023 Active fish oil/omega-3 fatty acids (Promega;Cardi-[place] 3) 1000 MG capsule Take 1 (one) capsule by mouth 3 times daily with meals Active Active Problems Problem Noted Date Diagnosed Date Normal labor and delivery 09/19/2023 Anxiety 07/01/2019 Resolved Problems Problem Noted Date Diagnosed Date Resolved Date Anxiety in , antepartum 09/17/2023 09/19/2023 39 weeks gestation of 09/17/2023 09/19/2023 Immunizations Name Administration Dates Next Due Covmuzu tv primary monoval ent 12+ yr 0.3mL Purple cap 03/10/2021,06/19/2020,05/31/2020 Human Papilloma Virus Yovany valent Vaccine 11/23/2006,07/06/2006 INFLUENZA VACCINE 03/10/2021,04/03/2019,05/05/20 05 INFLUENZA VACCINE, QUADR. (F LUZONE; FLULAVAL; FLUARIX; AFLURIA QUADRIVALENT; 6MO+), 0.5 ML (IIV4) 02/25/2017 MENINGOCOCCAL CONJUGATE (MCV4P) 11/23/2006 TDAP (7yrs+) 07/02/2023, 0,08/23/2016,08/19 TYPHOID IM 10/14/2017 Social History Tobacco Use Types Packs/Day Years [...] Date Recorded Patient Health Questionnaire-2 Score 0 01/01/2024 [facility] [place] of Occupat ional Health - Occupational Stress [...] a group home (including now)? No 09/17/2023 [place] Depression Scale Answer Date Recorded [place] Depression Scale Total 3 10/29/2023 The thought of harming myself has occurred to me . Never 10/29/2023 Sex and Gender Information Value Date Recorded Sex Assigned at Female 08/04/2021 1:55 PM STONE HAND Gender Identity Female 08/04/2021 1:55 PM STONE HAND Sexual Orientation Not on file Last Filed Vital Signs Vital Sign Reading Time Taken Comments Blood Pressure 116/72 01/02/2024 11:30 AM CDT Pulse 78 09/17/2023 6:04 PM CDT Temperature 36.9 ??C (98.4 ??F) 09/19/2023 4:47 PM CD T Respiratory Rate 16 09/19/2023 4:47 PM CDT Oxygen Saturation 100% 09/19/2023 4:47 PM CDT Inhaled Oxygen Concentration - - Weight 80.3 kg (177 lb) 12/03/2023 3:09 PM CDT Height 180.3 cm (5' 11 ) 12/03/2023 3:09 PM CDT Body Mass Index 24.69 12/03/2023 3:09 PM CDT Functional Status Functional Status Response Date of [...] person have difficulty concentrating/remembering/making decisions? No 09/17/2023 Plan of Treatment Upcoming Encounters Date Type Department Care Team (Late st Contact Info) Description 07/21/2024 2:20 PM STONE HAND Office Visit [facility] - Internal Medicine [address] [facility] [place] [address] Gordon Mccullough MD [address] [facility] [place] [address] Medical Devices Implanted Type Area Body Team Member Device Identifier Shelf Expiration Date Model / Serial / Lot Breast Description:bilateral breast implants Procedures Procedure Name Priority Date/Time Associated Diagnosis Comments OBSTETRIC PANEL RFLX CONFIRM (WO CT/GC/UA) Routine 02/18/2023 11:48 AM CDT Visit for confirmation of test result with physical exam PAP IG LB +HPV APTIMA REFLEX 16,18/45 Routine 09/07/2021 12:00 AM CDT Pap smear for cervical cancer screening from Last 3 Months or Most Recently Relevant to Health Maintenance Results * (ABNORMAL) OBSTETRIC PANEL RFLX CONFIRM (WO CT/GC/UA) (02/18/2023 11:48 AM CDT) Hepatitis B Virus Surface Antigen Negative Negative [facility] ACCOUNT BILL Hepatitis C Antibody Non Reactive Non Reactive [facility] ACCOUNT BILL RPR Non Reactive Non Reactive [facility] ACCOUNT BILL Rubella Antibody 1.45 Immune >0.99 index [facility] ACCOUNT BILL Comment: ? Non-immune ? <0.90 ? Equivocal ??0.90 - 0.99 ? Immune ? >0.99 ABO A [facility] ACCOUNT BILL Rh Type Positive [facility] ACCOUNT BILL Comment: Please note: Prior records for this patient's ABO / Rh type are not available for additional verification. Antibody Screen Negative Negative [facility] ACCOUNT B[facility] HIV Screen 4th Generation w Reflex Non Reactive Non Reactive [facility] ACCOUNT BILL Comment: HIV Negative HIV-1/HIV-2 antibodies and HIV-1 p24 antigen were NOT detected. There is no laboratory evidence of HIV infection. WBC 7.5 3.4 - 10.8 x10E3/uL [facility] ACCOUNT BILL RBC 4.22 3.77 - 5.28 x10E6/uL [facility] ACCOUNT BILL Hemoglobin 13.9 11.1 - 15.9 g/dL [facility] ACCOUNT BILL Hematocrit 39.5 34.0 - 46.6 % [facility] ACCOUNT BILL MCV 94 79 - 97 fL [facility] ACCOUNT BILL MCH 32.9 26.6 - 33.0 pg [facility] ACCOUNT BILL MCHC 35.2 31.5 - 35.7 g/dL [facility] ACCOUNT BILL RDW 10.8(L) 11.7 - 15.4 % [facility] ACCOUNT BILL Platelet Count 271 150 - 450 x10E3/uL [facility] ACCOUNT BILL Granulocytes % 59 Not Estab. % [facility] ACCOUNT BILL Lymphocytes % 32 Not Estab. % [facility] Monocytes % 8 Not Estab. % [facility] Eosinophils % 1 Not Estab. % [facility] ACCOUNT BILL Basophils % 0 Not Estab. % [facility] ACCOUNT BILL Immature Cells NOT AVAILABLE [facility] ACCOUNT BILL Comment:Result cannot be obt ained for this observation. Granulocytes Absolute 4.4 1.4 - 7.0 x10E3/uL [facility] ACCOUNT BILL Lymphocytes Absolute 2.4 0.7 - 3.1 x10E3/uL [facility] ACCOUNT BILL Monocytes Absolute 0.6 0.1 - 0.9 x10E3/uL [facility] ACCOUNT BILL Eosinophils Absolute 0.1 0.0 - 0.4 x10E3/uL [facility] ACCOUNT BILL Basophils Absolute 0.0 0.0 - 0.2 x10E3/uL [facility] ACCOUNT BILL Immature Granulocytes 0 Not Estab. % [facility] ACCOUNT BILL Immature Granulocytes Absolute 0.0 0.0 - 0.1 x10E3/uL [facility] ACCOUNT BILL nRBC NOT AVAILABLE [facility] ACCOUNT BILL Comment:Result cannot be obt ained for this observation. Comment Hematology NOT AVAILABLE [facility] ACCOUNT BILL Comment:Result cannot be obt ained for this observation. Urine Culture with GBS Final report(A) [facility] ACCOUNT BILL Other MISCELLANEOUS SAMPLE S / Unknown 02/18/2023 11:48 AM CDT 02/18/2023 Narrative Resulting Agency Comment Lab Testing performed at: [facility] [place] [address] ??[facility] [id number] Karin Pinto MD LAB - CHEMISTRY O RDERABLES [facility] ACCOUNT BILL [address] [place] [address] * (ABNORMAL) PAP IG LB +HPV APTIMA REFLEX 16,18/45 (09/07/2021 12:00 AM CDT) Diagnosis (A) [facility] ACCOUNT BILL Comment: EPITHELIAL CELL ABNORMALITY. LOW GRADE SQUAMOUS INTRAEPITHELIAL LESION (LSIL). Recommendation (A) [facility] ACCOUNT BILL Comment:Suggest follow up as clinically appropriate. Specimen Adequacy [facility] ACCOUNT BILL Comment: Satisfactory for evaluation. ??Endocervical and/or squamous metaplastic cells (endocervical component) are present. Clinician Provided ICD10 [facility] ACCOUNT BILL Comment:Z12.4 Performed by [facility] ACCOUNT BILL Comment:Brandon Gimenez totechnologist Electronically Signed by [facility] ACCOUNT BILL Comment:Karen Brothers MD, Pa thologist Comment . [facility] ACCOUNT BILL Pathologist Provided ICD10 [facility] ACCOUNT BILL Comment:R87.612 Note [facility] ACCOUNT BILL Comment: The Pap smear is a screening test designed to aid in the detection of premalignant and malignant conditions of the uterine cervix. ??It is not a diagnostic procedure and should not be used as the sole means of detecting cervical cancer. ??Both false-positive and false-negative reports do occur. ? . IGLBP CPT Code Automation [facility] ACCOUNT BILL Comment: This liquid based ThinPrep(R) pap test was screened with the use of an image guided system. Human papillomavirus Aptima Negative Negative [facility] ACCOUNT BILL Comment: This nucleic acid amplification test detects fourteen high-risk HPV types (16,18,31,33,35,39,45,51,52,56,58,59,66,68) without differentiation. 09/07/2021 09/08/2021 Narrative [facility] ACCOUNT BILL - 09/14/2021 3:08 PM CDT No. of containers..01 ThinPrep Vial Resulting Agency Comment Lab Testing performed at: [facility] [place] [address] [facility] ??[place] [id number] Karin Pinto MD LAB - PATHOLOGY/C YTOLOGY ORDERABLES [facility] ACCOUNT [facility]ILL [address] [place] [address] from Last 3 Months or Most Recently Relevant to Health Maintenance Administered Medications Advance Directives * Full Code (Latest Code Status on File) Date Activated Date Inactivated Comments 09/17/2023 6:11 PM 09/19/2023 7:28 PM Care Teams Shipping Hand Relationship Specialty Start Date End Date Gordon Mccullough MD PCP - General Family Medicine 08/08/21
--- OUTSIDE RECORDS SUMMARY | 2024-06-17 07:42 | XMS_ITS | Encounter Summary ---
Author Organization [facility] Address [address] [place] [address] Care Team Providers Care Regulatory Affairs Consultant Name Role Phone Gordon Mccullough MD Primary Care Provider [phone]- [phone] Encounter Details Date Type Department Care Team (Latest Contact Info) Description 09/09/2023 Travel Social History Tobacco Use Types Packs/Day Years Used Date Smoking Tobacco: Never Smokeless Tobacco: Never Alcohol Use Standard Drinks/Week Comments Not Currently 4 (1 standard drink = 0.6 oz pur e alcohol) PHQ-2 Answer Date Recorded Patient Health Questionnaire-2 Score 0 08/26/2023 Comments Yes Sex and Gender Information Value Date Recorded Sex Assigned at Female 08/04/2021 1:55 PM CLIMATE CHANGE RISK ASSESSOR Gender Identity Female 08/04/2021 1:55 PM CLIMATE CHANGE RISK ASSESSOR Sexual Orientation Not on file documented as of this encounter Plan of Treatment Upcoming Encounters Date Type Department Care Team (Late st Contact Info) Description 07/21/2024 2:20 PM CLIMATE CHANGE RISK ASSESSOR Office Visit [facility] - Internal Medicine [address] [place] [address] Gordon Mccullough MD [address] [facility] [place] [place] [phone] documented as of this encounter Visit Diagnoses Not on filedocumented in this encounter Care Teams Regulatory Affairs Consultant Relationship Specialty Start Date End Date Gordon Mccullough MD PCP - General Family Medicine 08/08/21 documented as of this encounter
--- OUTSIDE RECORDS SUMMARY | 2024-06-17 07:42 | XMS_ITS | Encounter Summary ---
Author Organization [facility] Address [address] [facility] [place] [address] Care Team Providers Care Horse Farm Manager Name Role Phone Gordon Mccullough MD Primary Care Provider [phone]- [phone] Yael Barron WEED CUTTER Unavailable Reason for Visit * Reason Onset Date Comments Transitional Care 2023 Encounter Details Date Type Department Care Team (Latest Contact Info) Description 2023 [facility]itional [facility] - Care Coordination [address] [phone] Yael Barron, OMAR Transitional Care Social History Tobacco Use Types [...] Recorded Patient Health Questionnaire-2 Score 0 08/26/2023 [place] of Occupat ional Health - Occupational Stress [...] to sleep or slept in a senior care (including now)? No 09/17/2023 [place] Depression Scale Answer Date Recorded [place] Depression Scale Total 0 09/19/2023 The thought of harming myself has occurred to me . Never 09/19/2023 Sex and Gender Information Value Date Recorded Sex Assigned at Female 08/04/2021 1:55 PM GROCERY PACKER Gender Identity Female 08/04/2021 1:55 PM GROCERY PACKER Sexual Orientation Not on file documented as [...] Telephone Encounter - Yael Barron MSW - 2023 9:45 AM CDT Outreach 08/10: SW attempted patient outreach regarding Transitional Care; LMOV regarding purpose of contact and request for return call. JAS TaylorW-[place] [phone] documented in this encounter Plan of Treatment Upcoming Encounters Date Type Department Care Team (Late st Contact Info) Description 07/21/2024 2:20 PM GROCERY PACKER Office Visit [facility] - Internal Medicine [address] [place] [address] Gordon Mccullough MD [address] [place] [address] documented as of this encounter Visit Diagnoses Not on filedocumented in this encounter Care Teams Horse Farm Manager Relationship Specialty Start Date End Date Gordon Mccullough MD PCP - General Family Medicine 08/08/21 Yael Barron MSW Outpatient Manager E Learning Care Management 09/20/2309/23 documented as of this encounter
--- OUTSIDE RECORDS SUMMARY | 2024-06-17 07:42 | XMS_ITS | Encounter Summary ---
Author Organization [facility] Address [address] [place] [address] Care Team Providers Care Product Transfer Pumper Name Role Phone Gordon Mccullough MD Primary Care Provider +1- [phone] Reason for Visit * Reason Comments Care Encounter Details Date Type Department Care Team (Late st Contact Info) Description 10/29/2023 11:20 AM CDT Office Visit [facility] Medical [facility] - SEAM RUBBER [address] [place] [address], [address] [place] [phone] Karin Pinto MD [address] [place] [phone] care and examination (HCC) (Primary Dx); Family planning education, guidance, and counseling Social History Tobacco Use Types Packs/Day Years [...] Recorded Patient Health Questionnaire-2 Score 0 08/26/2023 [facility] of Occupat ional Health - Occupational Stress [...] place to sleep or slept in a longterm (including now)? No 09/17/2023 [place] Depression Scale Answer Date Recorded Pace Depression Scale Total 3 10/29/2023 The thought of harming myself has occurred to me . Never 10/29/2023 Sex and Gender Information Value Date Recorded Sex Assigned at Female 08/04/2021 1:55 PM STUDENT DEAN Gender Identity Female 08/04/2021 1:55 PM STUDENT DEAN Sexual Orientation Not on file documented as of this encounter Last Filed Vital Signs Vital Sign Reading Time Taken Comments Blood Pressure 116/72 10/29/2023 11:25 AM CDT Pulse - - Temperature - - Respiratory Rate - - Oxygen Saturation - - Inhaled Oxygen Concentration - - Weight 78.9 kg (174 lb) 10/29/2023 11:25 AM CDT Height 180.3 cm (5' 11 ) 10/29/2023 11:25 AM CDT Body Mass Index 24.27 10/29/2023 11:25 AM CDT documented in this encounter Functional Status [...] Progress Notes * Karin Pinto MD - 10/29/2023 11:41 AM CDT Subjective: Tati Cm is a 33 year [id number] female who presents 6 weeks post following a spontaneous vaginal delivery. I have fully reviewed the and intrapartum course. The delivery wasat 39 gestational weeks. course has been uncomplicated. Baby is doing well. Baby is feeding formula. Bleeding no bleeding . Bowel function is normal. Bladder function is normal. Pace Depression Score: I have been able to laugh and see the funny side of things.: As much as I always could I have looked forward with enjoyment to things.: As much as I ever did I have blamed myself unnecessarily when things went wrong.: Not very often I have been anxious or worried for no good reason.: Hardly ever I have felt scared or panicky for no good reason.: No, not at all Things have been getting on top of me.: No, most of the time I have coped quite well I have been so unhappy that I have had difficulty sleeping.: Not at all I have felt sad or miserable.: No, not at all I have been so unhappy that I have been crying.: No, never The thought of harming myself has occurred to me.: Never Pace Depression Scale Total: 3 I have reviewed the past medical and surgical history, social history, family history, problem list, allergies and medication lists. Review of Systems Pertinent items are noted in HPI Objective: BP 116/72 (BP Location: Right arm) Ht 1.803 m (5' 11 ) Wt 78.9 kg (174 lb) General Appearance: alert, cooperative, no distress Lungs: CTAB Heart: regular rhythm, normal S1 and S2, without murmurs, gallops or rubs Abdomen: soft without mass, non-tender, with normal bowel sounds Pelvic: Vulva and vagina appear normal. Cervix appears normal. Bimanual exam reveals normal uterus and adnexa. Assessment: ICD-10-CM 1. care and examination (HCC) Z39.2 2. Family planning education, guidance, and counseling Z30.09 Plan: Patient is doing well. No further restrictions. Contraception options discussed. Risks and benefits reviewed. Patient's choice of contraception is the Kyleena IUD. Follow-up for IUD placement. documented in this encounter Plan of Treatment Upcoming Encounters Date Type Department Care Team (Late st Contact Info) Description 07/21/2024 2:20 PM STUDENT DEAN Office Visit [facility] - Internal Medicine [address] [place] [phone] Gordon Mccullough MD [address] [place] [phone] documented as of this encounter Visit Diagnoses Diagnosis care and examination (HCC)- Primary Family planning education, guidance, and counseling Other general counseling and advice for contraceptive management documented in this encounter Care Teams Product Transfer Pumper Relationship Specialty Start Date End Date Gordon Mccullough MD PCP - General Family Medicine 08/08/21 documented as of this encounter
--- OUTSIDE RECORDS SUMMARY | 2024-06-17 07:42 | XMS_ITS | Encounter Summary ---
Author Organization [facility] Address [address] [facility] [place] [address] Care Team Providers Care Water Valve Repairer Name Role Phone Gordon Mccullough MD Primary Care Provider +1- [phone] Encounter Details Date Type Department Care Team (Latest Contact Info) Description 09/17/2023 Travel Social History Tobacco Use Types Packs/Day [...] Recorded Patient Health Questionnaire-2 Score 0 08/26/2023 [facility] of Occupat ional Health - Occupational Stress [...] place to sleep or slept in a halfway (including now)? No 09/17/2023 Comments Yes Sex and Gender Information Value Date Recorded Sex Assigned at Female 08/04/2021 1:55 PM MANUFACTURE SPECIALIST Gender Identity Female 08/04/2021 1:55 PM MANUFACTURE SPECIALIST Sexual Orientation Not on file documented [...] st Contact Info) Description 07/21/2024 2:20 PM MANUFACTURE SPECIALIST Office Visit [facility] - Internal Medicine [address] [place] [address] Gordon Mccullough MD [address] [place] [phone] documented as of this encounter Visit Diagnoses Not on filedocumented in this encounter Care Teams Water Valve Repairer Relationship Specialty Start Date End Date Gordon Mccullough MD PCP - General Family Medicine 08/08/21 documented as of this encounter
--- OUTSIDE RECORDS SUMMARY | 2024-06-17 07:42 | XMS_ITS | Clinical Summary ---
Author Organization [facility] Address [address] [facility] [place] [address] Care Team Providers Care Photographic Process Screen Maker Name Role Phone Gordon Mccullough MD Primary Care Provider +1- [phone] Source Comments [facility],non-owned Affiliates and Associated Physician Practices is amultiple site organization consisting of ambulatory clinics and hospital sitesin [place], [place], [place] and [place]. This disclosure is being madepursuant to the Care Everywhere program and may not contain all information available regarding this patient. Last updated 18.[facility] Allergies No known active allergies Medications * [...] 11 02/18/2023 Active fish oil/omega-3 fatty acids (Promega;Cardi-[place] 3) 1000 MG capsule Take 1 (one) capsule by mouth 3 times daily with meals Active Active Problems Problem Noted Date Diagnosed Date Normal labor and delivery 09/19/2023 Anxiety 07/01/2019 Resolved Problems Problem Noted Date Diagnosed Date Resolved Date Anxiety in , antepartum 09/17/2023 09/19/2023 39 weeks gestation of 09/17/2023 09/19/2023 Immunizations Name Administration Dates Next Due CovAllmyapps primary monoval ent 12+ yr 0.3mL Purple cap 03/10/2021,06/19/2020,05/31/2020 Human Papilloma Virus Yovany valent Vaccine 11/23/2006,07/06/2006 INFLUENZA VACCINE 03/10/2021,04/03/2019,05/05/20 05 INFLUENZA VACCINE, QUADR. (F LUZONE; FLULAVAL; FLUARIX; AFLURIA QUADRIVALENT; 6MO+), 0.5 ML (IIV4) 02/25/2017 MENINGOCOCCAL CONJUGATE (MCV4P) 11/23/2006 TDAP (7yrs+) 07/02/2023, 0,08/23/2016,08/19 TYPHOID IM 10/14/2017 Family History Medical History Relation Name Comments Depression Mother Cancer - Breast Neg Hx Cancer - Colon Neg Hx Cancer - Ovarian Neg Hx Cancer - Uterine Neg Hx Relation Name Status Comments Father Alive Mother Alive Social History Tobacco Use Types Packs/Day Years [...] Recorded Patient Health Questionnaire-2 Score 0 01/01/2024 [facility] of Occupat ional Health - [...] place to sleep or slept in a care home (including now)? No 09/17/2023 [place] Depression Scale Answer Date Recorded [place] Depression Scale Total 3 10/29/2023 The thought of harming myself has occurred to me . Never 10/29/2023 Sex and Gender Information Value Date Recorded Sex Assigned at Female 08/04/2021 1:55 PM FISHER WEIR Gender Identity Female 08/04/2021 1:55 PM FISHER WEIR Sexual Orientation Not on file Last Filed [...] Mass Index 24.69 12/03/2023 3:09 PM CDT Plan of Treatment Upcoming Encounters Date Type Department Care Team (Late st Contact Info) Description 07/21/2024 2:20 PM FISHER WEIR Office Visit [facility] - Internal Medicine [address] [facility] [place] [address] Gordon Mccullough MD [address] [facility] [place] [address] Health Maintenance Due Date Last Done Comments HPV VACCINE (3 - 3-dose series) 02/15/2007 11/23/2006, 07/06/2006 HEPATITIS B VACCINE (1 of 3 - 19+ 3-dose series) 2008 COVID-19 VACCINE ( season) 2024 03/10/2021, 06/19/2020, 05/31/2020 INFLUENZA VACCINE (#1) 2024 , 04/03/2019, 02/25/2017, Additional history exists DEPRESSION SCREENING 06/10/2024 10/29/2023, 08/08/2023, 02/18/2023, Additional history exists PAP with HPV 09/07/2026 09/07/2021 DTAP/TDAP/TD VACCINES (5 - Td or Tdap) 07/02/2033 07/02/2023, 07/01/2019, 08/23/2016, Additional history exists ZOSTER VACCINE (1 of 2) 09/25/2039 MENINGOCOCCAL VACCINE Completed 11/23/2006 HEPATITIS C SCREENING Completed 02/18/2023 HIV SCREENING Completed 02/18/2023 HIB VACCINE Aged Out No longer eligi ble based on patient's age to complete this topic PNEUMOCOCCAL VACCINE Aged Out No long er eligible based on patient's age to complete this topic Medical Devices Implanted Type Area Industrial Pharmacist Device Identifier Shelf Expiration Date Model / [...] Resulting Agency Comment Lab Testing performed at: [address] ??[facility] [phone] Karin Pinto MD LAB - CHEMISTRY O RDERABLES [facility] ACCOUNT BILL [address] [place] [address] * (ABNORMAL) PAP IG LB +HPV APTIMA [...] Resulting Agency Comment Lab Testing performed at: [address] ??[facility] [phone] Karin Pinto MD LAB - PATHOLOGY/C YTOLOGY ORDERABLES [facility] ACCOUNT BILL [id number] [place] [address] from Last 3 Months or Most Recently Relevant to Health Maintenance Advance Directives * Full Code (Latest Code Status on File) Date Activated Date Inactivated Comments 09/17/2023 6:11 PM 09/19/2023 7:28 PM Care Teams Photographic Process Screen Maker Relationship Specialty Start Date End Date Gordon Mccullough MD PCP - General Family Medicine 08/08/21
--- OUTSIDE RECORDS SUMMARY | 2024-06-17 07:42 | XMS_ITS | Encounter Summary ---
Author Organization [facility] Address [address] [place] [address] Care Team Providers Care Big Data Analytics Lead Name Role Phone Gordon Mccullough MD Primary Care Provider +1- [phone] Reason for Visit * Reason Comments Follow-up Encounter Details Date Type Department Care Team (Late Contact Info) Description 01/02/2024 11:20 AM CDT Office Visit [facility] - CRIME SCENE EVIDENCE TECHNICIAN [address] [place] [address], [address] [place] [phone] Karin Pinto MD [address] [place] [phone] IUD check up (Primary Dx) Social History Tobacco Use Types [...] Recorded Patient Health Questionnaire-2 Score 0 01/01/2024 [facility] [place] of Occupat ional Health - Occupational Stress [...] place to sleep or slept in a assisted (including now)? No 09/17/2023 [place] Depression Scale Answer Date Recorded [place] Depression Scale Total 3 10/29/2023 The thought of harming myself has occurred to me . Never 10/29/2023 Sex and Gender Information Value Date Recorded Sex Assigned at Female 08/04/2021 1:55 PM SUPERVISOR INSTANT POTATO PROCESSING Gender Identity Female 08/04/2021 1:55 PM SUPERVISOR INSTANT POTATO PROCESSING Sexual Orientation Not on file documented as of this encounter Last Filed Vital Signs Vital Sign Reading Time Taken Comments Blood Pressure 116/72 01/02/2024 11:30 AM CDT Pulse - - Temperature - - Respiratory Rate - - Oxygen Saturation - - Inhaled Oxygen Concentration - - Weight - - Height - - Body Mass Index - - documented in this encounter Functional Status Functional [...] Progress Notes * Karin Pinto MD - 01/02/2024 11:35 AM CDT HISTORY: 1) CC: Chief Complaint Patient presents with Follow-up 2) HPI: Tati Cm is a 33 year old female, Patient's last menstrual period was 11/27/2023 (exact date)., here for IUD check. Some spotting. Sex without event. Other pertinent GLUING MACHINE OPERATOR history: none Current Outpatient Medications on File Prior to Visit Medication Sig Dispense Refill fish oil/omega-3 fatty acids (Promega;Cardi-[place] 3) 1000 MG capsule Take 1 (one) capsule by mouth 3 times daily with meals (Patient not taking: Reported on 01/02/2024) Vit-Fe Fumarate-FA ( plus) 27-1 MG tablet Take 1 (one) tablet by mouth once daily 30 tablet 11 sertraline (Zoloft) 100 MG tablet Take 1.5 (one and one-half) tablets by mouth once daily No current facility-administered medications on file prior to visit. Social History: Social History Socioeconomic History Marital status: Spouse [...] activity: Yes Partners: Male control/protection: I.U.D. Comment: darling 12/03/23 Other Topics Concern Not on file [...] No Stress: No Stress Concern Present (09/17/2023) [place] of Occupational Health - Occupational Stress Questionnaire Feeling of Stress : Not at all Housing Stability: Low Risk (09/17/2023) Housing Stability Vital Sign Unable to Pay for Housing in the Last Year: No Number of Places Lived in the Last Year: 1 Unstable Housing in the Last Year: No 3) Review of Systems (a -13 visit requires 1) Constitutional: Negative Gastrointestinal: Negative Genitourinary:Negative 4) PFSH, other pertinent history: Past Medical, Family, and Social History Reviewed. Allergies reviewed. Past Surgical History: Procedure Laterality Date Breast Augmentation 2009 Replacement 11/2022 EXAMINATION (-13 visit requires 6 or more elements from single or multisystem) 1) Constitutional: BP 116/72 (BP Location: Right arm) There is no height or weight on file to calculate BMI. alert, cooperative, no distress 2) Heart: RRR 3) Lungs: CTAB 4) Extremities: no clubbing, cyanosis or edema 5) GI Exam: Abdomen: soft without mass, non-tender 6) Female Exam: External Genitalia-> No abnormality Urethreal Meatus--> No lesion Urethra--> No abnormality Vagina--> No lesion, No blood. Cervix--> IUD strings in place and extending 4 cm from the external os Uterus--> nontender Adnexae--> Not palpated Anus & Perineum--> normal Digital Rectal Exam Including sphincter tone--> deferred ASSESSMENT ICD-10-CM 1. IUD check up Z30.431 Patient Active Problem List Diagnosis Date Noted Normal labor and delivery (HCC) 09/19/2023 Priority: Not Prioritized Anxiety 07/01/2019 Priority: Not Prioritized PLAN Patient is doing well with IUD in place. No new concerns. IUD placement appropriate on exam. Follow-up for next WWE. documented in this encounter Plan of Treatment Upcoming Encounters Date Type Department Care Team (Late st Contact Info) Description 07/21/2024 2:20 PM SUPERVISOR INSTANT POTATO PROCESSING Office Visit [facility] - Internal Medicine [address] [facility] [address] Gordon Mccullough MD [address] [place] [phone] documented as of this encounter Visit Diagnoses Diagnosis IUD check up- Primary Surveillance of previously prescribed intrauterine contraceptive device documented in this encounter Care Teams Big Data Analytics Lead Relationship Specialty Start Date End Date Gordon Mccullough MD PCP - General Family Medicine 08/08/21 documented as of this encounter
--- OUTSIDE RECORDS SUMMARY | 2024-06-17 07:42 | XMS_ITS | Encounter Summary ---
Author Organization [facility] Address [address] [facility] [place] [address] Care Team Providers Care Wet Roller Name Role Phone Gordon Mccullough MD Primary Care Provider +1- [phone] Encounter Details Date Type Department Care Team (Latest Contact Info) Description 10/29/2023 Travel Social History Tobacco Use Types Packs/Day [...] Recorded Patient Health Questionnaire-2 Score 0 08/26/2023 [facility] of Occupat ional Health - Occupational Stress [...] a group home (including now)? No 09/17/2023 [place] Depression Scale Answer Date Recorded [place] Depression Scale Total 3 10/29/2023 The thought of harming myself has occurred to me . Never 10/29/2023 Sex and Gender Information Value Date Recorded Sex Assigned at Female 08/04/2021 1:55 PM ACID DIPPER Gender Identity Female 08/04/2021 1:55 PM ACID DIPPER Sexual Orientation Not on file documented as [...] st Contact Info) Description 07/21/2024 2:20 PM ACID DIPPER Office Visit [facility] - Internal Medicine [address] [facility] [place] [address] Gordon Mccullough MD [address] [facility] [place] [address] documented as of this encounter Visit Diagnoses Not on filedocumented in this encounter Care Teams Wet Roller Relationship Specialty Start Date End Date Gordon Mccullough MD PCP - General Family Medicine 08/08/21 documented as of this encounter
--- OUTSIDE RECORDS SUMMARY | 2024-06-17 07:42 | XMS_ITS | Patient Health Summary ---
Author Organization [facility] Address [address] [place] [address] Care Team Providers Care Registered Nurse Midwife Name Role Phone Gordon Mccullough MD Primary Care Provider [phone] Note from [facility],non-owned Affiliates and Associated Physician Practices is amultiple site organization consisting of ambulatory clinics and hospital sitesin [place], [place] and [place]. This disclosure is being madepursuant to the Care Everywhere program and may not contain all information available regarding this patient. Last updated 18.[facility] Allergies No known active allergies Medications * Be aware that medications may not be up to date on this document. Alwaysverify current medications with the patient. * sertraline (Zoloft) 100 MG tablet Take 1.5 (one and one-half) tablets by mouth once daily * Vit-Fe Fumarate-FA ( plus) 27-1 MG tablet(Started 02/18/2023) Take 1 (one) tablet by mouth once daily 11 refills by 02/18/2024 * fish oil/omega-3 fatty acids (Promega;Cardi-[place] 3) 1000 MG capsule Take 1 (one) capsule by mouth 3 times daily with meals Active Problems Problem Noted Date Diagnosed Date Normal labor and delivery 09/19/2023 Anxiety 07/01/2019 Resolved Problems Problem Noted Date Diagnosed Date Resolved Date Anxiety in , antepartum 09/17/2023 09/19/2023 39 weeks gestation of 09/17/2023 09/19/2023 Immunizations * Covid Pfizer primary monovalent 12+ yr 0.3mL Purple cap(Given 03/10/2021, 06/19/2020, 05/31/2020) * Human Papilloma Virus Quadrivalent Vaccine(Given 11/23/2006, 07/06/2006) * INFLUENZA VACCINE(Given 03/10/2021, 04/03/2019, 05/05/2005) * INFLUENZA VACCINE, QUADR. (FLUZONE; FLULAVAL; FLUARIX; AFLURIA QUADRIVALENT; 6MO+), 0.5 ML (IIV4)(Given 02/25/2017) * MENINGOCOCCAL CONJUGATE (MCV4P)(Given 11/23/2006) * TDAP (7yrs+)(Given 07/02/2023, 07/01/2019, 08/23/2016, 08/19/2004) * TYPHOID IM(Given 10/14/2017) Social History Tobacco Use Types Packs/Day Years [...] Recorded Patient Health Questionnaire-2 Score 0 01/01/2024 [facility] - Occupational Stress [...] place to sleep or slept in a custodial (including now)? No 09/17/2023 Shiner Depression Scale Answer Date Recorded Shiner Depression Scale Total 3 10/29/2023 The thought of harming myself has occurred to me . Never 10/29/2023 Sex and Gender Information Value Date Recorded Sex Assigned at Female 08/04/2021 1:55 PM LOCAL OPERATOR Gender Identity Female 08/04/2021 1:55 PM LOCAL OPERATOR Sexual Orientation Not on file Last Filed [...] Mass Index 24.69 12/03/2023 3:09 PM CDT Medical Devices Implanted Type Area Boat Rigger Device Identifier Shelf Expiration Date Model / Serial / Lot Breast Description:bilateral breast implants Procedures * HCG URINE QUALITATIVE - POINT OF CARE (AMB) STL(Performed 12/03/2023) Performed for Encounter for IUD insertion * NEURAXIAL BLOCK(Performed 09/17/2023) * BLOOD TYPE VERIFICATION(Performed 09/17/2023) * TYPE + SCREEN PANEL(Performed 09/17/2023) * SYPHILIS ANTIBODY CASCADING REFLEX(Performed 09/17/2023) Performed for 39 weeks gestation of ([facility]) * CBC W AUTO DIFFERENTIAL(Performed 09/17/2023) * CBC W AUTO DIFFERENTIAL(Performed 06/04/2023) Performed for 20 weeks gestation of ([facility]) * GLUCOSE CHALLENGE(Performed 06/04/2023) Performed for 20 weeks gestation of ([facility]) * US OB FOLLOWUP(Performed 06/04/2023) Performed for screening for malformation using ultrasonics ([facility]) * US OB ANOMALY(Performed 05/06/2023) Performed for 16 weeks gestation of ([facility]) * US OB TRANSVAGINAL(Performed 05/06/2023) Performed for 20 weeks gestation of ([facility]), screening for malformation using ultrasonics ([facility]), Encounter for screening for cervical length ([facility]) * [id number] PLUS CORE(Performed 03/04/2023) Performed for 11 weeks gestation of ([facility]) * US OB LESS THAN 14 WEEKS(Performed 03/04/2023) Performed for Visit for confirmation of test result with physical exam * URINALYSIS AUTO - POINT OF CARE(Performed 02/18/2023) Performed for Visit for confirmation of test result with physical exam * RESULT REFLEXED(Performed 02/18/2023) Performed for Visit for confirmation of test result with physical exam * INTERPRETATION REFLEXED(Performed 02/18/2023) Performed for Visit for confirmation of test result with physical exam * OBSTETRIC PANEL RFLX CONFIRM (WO CT/GC/UA)(Performed 02/18/2023) Performed for Visit for confirmation of test result with physical exam * PAP CERVICAL CANCER SCREEN APT(Performed 09/07/2021) Performed for Pap smear for cervical cancer screening * PAP IG LB +HPV APTIMA REFLEX 16,18/45(Performed 09/07/2021) Performed for Pap smear for cervical cancer screening * LIPID PROFILE(Performed 08/08/2021) Performed for Lipid screening * CBC W AUTO DIFFERENTIAL(Performed 08/08/2021) Performed for Physical exam, routine * COMPREHENSIVE METABOLIC PANEL(Performed 08/08/2021) Performed for JIMMY (generalized anxiety disorder), Physical exam, routine, Lipid screening * TSH REFLEX FREE T4(Performed 08/08/2021) Performed for JIMMY (generalized anxiety disorder), Physical exam, routine Results * HCG URINE QUALITATIVE - POINT OF CARE (AMB) STL (12/03/2023 3:28 PM CDT) HCG Qual Urine Negative Negative [facility] [place] HCG Urine QC NEG neg NEGATIVE - POSITIVE [facility] [place] HCG Urine QC POS pos NEGATIVE - POSITIVE WAYNE SEPULVEDA Expiration Date 04/01/25 WAYNE SEPULVEDA Lot # [id number] WAYNE SEPULVEDA Urine URINE / Unknown 12/03/2023 3 :28 PM CDT Karin Pinto MD LAB - POINT OF OR RE ORDERABLES WAYNE SEPULVEDA [address], [address] [place] [address], [facility] [phone] * EPIDURAL BLOCK PERF (09/17/2023 11:33 PM [...] throughout. Staff: ?? Anesthesia Provider: ??Serene Phelps APRN-CUSTOMER SOLUTIONS SPECIALIST ?? - ?? performed the procedure Valdez Terry MD GENERAL ANESTH ESIA ORDERABLES * BLOOD TYPE VERIFICATION (09/17/2023 7:23 PM CDT) ABO Rh A POS 09/17/2023 8:3 4 PM CDT [facility] Blood Bank BLOOD SPECIMEN / Unknown Venipuncture / Unknown 09/17/2023 7:23 PM CDT 09/17/2023 7:43 PM CDT Karin Pinto MD LAB - BLOOD BANK ORDERABLES [facility] [phone] * SYPHILIS ANTIBODY CASCADING REFLEX (09/17/2023 6:12 PM CDT) Treponema pallidum Antibody Non Reactive Non Reactive 09/17/2023 10:41 PM CDT [facility] Comment: No Laboratory evidence of syphilis infection. ?? Note: ??Circulating antibodies may be low or undetectable in early infection. ??If recent exposure is suspected, re-draw sample in 2-4 weeks and repeat testing. Blood BLOOD SPECIMEN / Unknown Venipuncture / Unknown 09/17/2023 6:12 PM CDT 09/17/2023 6:22 PM CDT Karin Pinto MD LAB - SEROLOGY OR DERABLES [facility] [address] [place] [address] * TYPE + SCREEN PANEL (ALL SS except [facility]) (09/17/2023 6:12 PM CDT) Pathologist [facility] ABO Rh A POS 09/17/2023 7:10 PM CDT [facility] Comment:No history; collect retype. Antibody Screen NEG 7:10 PM CDT [facility] Blood Bank BLOOD SPECIMEN / Unknown Venipuncture / Unknown 09/17/2023 6:12 PM CDT 09/17/2023 6:22 PM CDT Karin Pinto MD LAB - BLOOD BANK ORDERABLES Performing Organization Address City/[facility]/ZIP Co de Phone Number [facility] [phone] * (ABNORMAL) CBC W AUTO DIFFERENTIAL (09/17/2023 6:12 PM CDT) Only the most recent of3 resultswithin the time period is included. Pathologist [facility] WBC 9.0 4.0 - 10.7 x10E9/L 09/17/2023 6:26 PM CDT [facility] RBC Count 4.34 3.90 - 5.20 x10E12/L 09/17/2023 6:26 PM CDT [facility] Hemoglobin 13.7 11.9 - 15.8 g/dL 09/17/2023 6:26 PM CDT [facility] Hematocrit 38.6 34.8 - 46.1 % 09/17/2023 6:26 PM CDT [facility] MCV 88.9 80.0 - 98.0 fL 09/17/2023 6:26 PM CDT [facility] MCH 31.6 26.7 - 33.6 pg 09/17/2023 6:26 PM CDT [facility] MCHC 35.5 31.7 - 36.3 g/dL 09/17/2023 6:26 PM [facility] RDW-CV 11.9 11.3 - 14.8 % 09/17/2023 6:26 PM [facility] Platelet Count 209 150 - 420 x10E9/L 09/17/2023 6:26 PM [facility] MPV 11.8(H) 7.8 - 11.4 fL 09/17/2023 6:26 PM [facility] Neutrophil % 61.4 41.0 - 74.0 % 09/17/2023 6:26 PM [facility] Lymphocyte % 32.5 17.0 - 47.0 % 09/17/2023 6:26 PM [facility] Monocyte % 5.5 3.0 - 11.0 % 09/17/2023 6:26 PM [facility] Eosinophil % 0.2 0.0 - 7.0 % 09/17/2023 6:26 PM [facility] Basophil % 0.1 0.0 - 1.6 % 09/17/2023 6:26 PM [facility] Immature Granulocytes % 0.3 0.0 - 1.0 % 09/17/2023 6:26 PM [facility] Neutrophil Absolute 5.54 1.60 - 7.50 x10E9/L 09/17/2023 6:26 PM [facility] Lymphocyte Absolute 2.94 1.00 - 4.40 x10E9/L 09/17/2023 6:26 PM [facility] Monocyte Absolute 0.50 0.15 - 1.00 x10E9/L 09/17/2023 6:26 PM [facility] Eosinophil Absolute 0.02 0.00 - 0.60 x10E9/L 09/17/2023 6:26 PM [facility] Basophil Absolute 0.01 0.00 - 0.13 x10E9/L 09/17/2023 6:26 PM [facility] Blood BLOOD SPECIMEN / Unknown Venipuncture / Unknown 09/17/2023 6:12 PM CDT 09/17/2023 6:22 PM CDT Karin Pinto MD LAB - HEMATOLOGY ORDERABLES [facility] [address] [id number] * GLUCOSE CHALLENGE (06/04/2023 10:07 AM LOCAL OPERATOR) [facility] Signature GTT 1Hr 92 70 - 139 mg/dL [facility] ACCOUNT BILL Comment: According to ADA, a glucose threshold of >139 mg/dL after 50-gram load identifies approximately 80% of women with gestational diabetes mellitus, while the sensitivity is further increased to approximately 90% by a threshold of >129 mg/dL. FASTING Blood BLOOD SPECIMEN / Unknown 06/04/2023 10:07 AM LOCAL OPERATOR 06/04/2023 Narrative Resulting Agency Comment Lab Testing performed at: [facility] [address] ??[facility] [id number] Karin Pinto MD LAB - CHEMISTRY O RDERABLES Performing Organization Address City/[facility] Co de Phone Number [facility] ACCOUNT BILL [address] [place] [address] * US OB FOLLOWUP (06/04/2023 8:57 AM LOCAL OPERATOR) Anatomical Region Laterality Modality Abdomen, Pelvis Ultrasound Narrative 06/04/2023 8:57 AM LOCAL OPERATOR Karin Pinto MD ? 06/04/2023 ??9:10 AM ? [facility] PRODUCT ASSURANCE ENGINEER [facility] OB ULTRASOUND - LIMITED Patient Name: Tati Cm Study Date: 06/04/2023 , Age: 4 1990, 32 year old Pregnancies: BMI: 23.85 LMP: Patient's last menstrual period was 12/17/2022 (exact date). Gestational age by ANUJA: 24 wks 1 days History/ Indication: ?? Complete anomaly screen CPT-4: ??89709 Presentation: breech Placenta: posterior Heart Rate: 143 bpm Amniotic Fluid: normal Belt Lacer Comments: Profile and 4CH were visualized. Anomaly screen is complete. Belt Lacer: ??RT Hardy (R), RDMS Images will be scanned into report. Physician Interpretation: Profile and 4-chamber heart views adequately visualized, completing the patient's anatomy scan. Interpreting Physician: Bao Pinto MD Procedure Note Anirudh Candelaria, RDMS - 06/04/2023 8:57 AM CST [facility] PRODUCT ASSURANCE ENGINEER [facility] ULTRASOUND - LIMITED Patient Name: Tati Cm Study Date: 06/04/2023 , Age: 4 1990, 32 year old Pregnancies: BMI: 23.85 LMP: Patient's last menstrual period was 12/17/2022 (exact date). Gestational age by ANUJA: 24 wks 1 days History/ Indication: Complete anomaly screen CPT-4: 57789 Presentation: breech Placenta: posterior Heart Rate: 143 bpm Amniotic Fluid: normal Belt Lacer Comments: Profile and 4CH were visualized. Anomaly screen iscomplete. Belt Lacer: Anirudh Candelaria RT (R), NATHALIA Images will be scanned into report. Physician Interpretation: Profile and 4-chamber heart views adequatelyvisualized, completing the patient's anatomy scan. Interpreting Physician: Bao Pinto MD Karin Pinto MD US ORDERABLES * US OB ANOMALY (05/06/2023 8:36 AM LOCAL OPERATOR) Anatomical Region Laterality Modality Pelvis Ultrasound Narrative 05/06/2023 8:36 AM LOCAL OPERATOR Karin Pinto MD ? 05/06/2023 ??9:43 AM ? [facility] PRODUCT ASSURANCE ENGINEER [facility] ULTRASOUND - ANOMALY SCREEN Patient Name: Tati Cm Study Date: 05/06/2023 , Age: 4 1990, 32 year old Pregnancies: BMI: 23.96 LMP: Patient's last menstrual period was 12/17/2022 (exact date). Latex allergy: No Gestational age by ANUJA: 20 wks 0 days Gestational age by today's US: ?20 wks 1 days ANUJA: ?09/23/2023 History/ Indication: ?? Anomaly screen CPT-4: ??09788 / 32168 Transabdominal: Yes ?? Transvaginal: ??Yes Presentation: cephalic Placenta: posterior Previa:No Heart Rate: 141 bpm Amniotic Fluid : wnl ? Biometry & Growth BPD: ??4.84 cm consistent with 20 wks 4 days, ??75.6% OFD: ??6.04 cm HC: ?17.55 cm consistent with 20 wks 0 days, ??44.8% AC: ?15.25 cm consistent with 20 wks 3 days, ??60.1% FL: ? 3.26 cm consistent with 20 wks 1 days, ??48.7% CEREB: 1.99 cm NF: 4.41 mm CI: ?? 80%, ??wnl HC/AC ?? 1.15 ??wnl EFW: 0 lbs 12 oz. ?63.3% ?? Anatomy PCI ? S UCI ? S 3VC ? S Cerebellum ?S Nuchal Fold ?S ? Lateral cerebral ventricles ??S Choroid Plexus ?? S Midline falx ?S Cavum septum pellucidi ??S Cisterna Magna ?? S Upper lip ?S Nasal bone ?S Eyes ? S Profile ? N Stomach ?S Kidneys ?S Urinary Bladder ?? S Diaphragm ?S Spine ? S Lower Extremities ?? S Upper Extremities ?? S Situs ? S Four chamber view ?? N LVOT ? S RVOT ? S ? Gender ?female (Mccloud: ??S = Seen, ??N = Not Seen, ??U = Unsatisfactory) ? Cervix: Length: 4.66 cm Approach: transvaginal Funneling: not present Belt Lacer Comments: Incomplete anomaly screen. Belt Lacer: ??Addi Solorzano RDMS (PRODUCT ASSURANCE ENGINEER) Images will be scanned into the record. Physician Interpretation: ?? The measurements today are consistent with menstrual dates. ??The ANUJA selected is based on her LMP and a prior ultrasound examination. The amniotic fluid volume is normal. ??The placenta is posterior. Profile view and 4 chamber heart views not adequately visualized, otherwise no sonographic signs of abnormality. Reassuring cervical length. Some aspects of the anatomy may not be well visualized due to position or poor acoustic properties. The patient was advised that ultrasound does not allow detection of all structural or chromosomal abnormalities. Interpreting Physician: Bao Pinto MD Procedure Note AmbroseAddi martins Ruddy - 05/06/2023 8:36 AM CST [facility]URANCE [facility] ULTRASOUND - ANOMALY SCREEN Patient Name: Tati Cm Study Date: 05/06/2023 , Age: 4 1990, 32 year old Pregnancies: BMI: 23.96 LMP: Patient's last menstrual period was 12/17/2022 (exact date). Latex allergy: No Gestational age by ANUJA: 20 wks 0 days Gestational age by today's US: 20 wks 1 days ANUJA: 09/23/2023 History/ Indication: Anomaly screen CPT-4: 28187 / 40614 Transabdominal: Yes Transvaginal: Yes Presentation: cephalic Placenta: posterior Previa:No Heart Rate: 141 bpm Amniotic Fluid : wnl Biometry & Growth BPD: 4.84 cm consistent with 20 wks 4 days, 75.6% OFD: 6.04 cm HC: 17.55 cm consistent with 20 wks 0 days, 44.8% AC: 15.25 cm consistent with 20 wks 3 days, 60.1% FL: 3.26 cm consistent with 20 wks 1 days, 48.7% CEREB: 1.99 cm NF: 4.41 mm CI: 80%, wnl HC/AC 1.15 wnl EFW: 0 lbs 12 oz. 63.3% Anatomy PCI S UCI S 3VC S Cerebellum S Nuchal Fold S Lateral cerebral ventricles S Choroid Plexus S Midline falx S Cavum septum pellucidi S Cisterna Magna S Upper lip S Nasal bone S Eyes S Profile N Stomach S Kidneys S Urinary Bladder S Diaphragm S Spine S Lower Extremities S Upper Extremities S Situs S Four chamber view N LVOT S RVOT S Gender female (Mccloud: S = Seen, N = Not Seen, U = Unsatisfactory) Cervix: Length: 4.66 cm Approach: transvaginal Funneling: not present Belt Lacer Comments: Incomplete anomaly screen. Belt Lacer: Addi Solorzano RDMS (PRODUCT ASSURANCE ENGINEER) Images will be scanned into the record. Physician Interpretation: The measurements today are consistent withmenstrual dates. The ANUJA selected is based on her LMP and a priorultrasound examination. The amniotic fluid volume is normal. The placentais posterior. Profile view and 4 chamber heart views not adequatelyvisualized, otherwise no sonographic signs of abnormality.Reassuring cervical length. Some aspects of the anatomy may not bewell visualized due to position or poor acoustic properties. Thepatient was advised that ultrasound does not allow detection of allstructural or chromosomal abnormalities. Interpreting Physician: Bao Pinto MD Karin Pinto MD US ORDERABLES * US OB TRANSVAGINAL (05/06/2023 8:36 AM LOCAL OPERATOR) Anatomical Region Laterality Modality Pelvis, Abdomen Ultrasound Narrative 05/06/2023 8:36 AM LOCAL OPERATOR Karin Pinto MD ? 05/06/2023 ??9:43 AM ? [facility]ODUCT ASSURANCE ENGINEER [facility] ULTRASOUND - ANOMALY SCREEN Patient Name: Tati Cm Study Date: 05/06/2023 , Age: 4 1990, 32 year old Pregnancies: BMI: 23.96 LMP: Patient's last menstrual period was 12/17/2022 (exact date). Latex allergy: No Gestational age by ANUJA: 20 wks 0 days Gestational age by today's US: ?20 wks 1 days ANUJA: ?09/23/2023 History/ Indication: ?? Anomaly screen CPT-4: ??00742 / 89677 Transabdominal: Yes ?? Transvaginal: ??Yes Presentation: cephalic Placenta: posterior Previa:No Heart Rate: 141 bpm Amniotic Fluid : wnl ? Biometry & Growth BPD: ??4.84 cm consistent with 20 wks 4 days, ??75.6% OFD: ??6.04 cm HC: ?17.55 cm consistent with 20 wks 0 days, ??44.8% AC: ?15.25 cm consistent with 20 wks 3 days, ??60.1% FL: ? 3.26 cm consistent with 20 wks 1 days, ??48.7% CEREB: 1.99 cm NF: 4.41 mm CI: ?? 80%, ??wnl HC/AC ?? 1.15 ??wnl EFW: 0 lbs 12 oz. ?63.3% ?? Anatomy PCI ? S UCI ? S 3VC ? S Cerebellum ?S Nuchal Fold ?S ? Lateral cerebral ventricles ??S Choroid Plexus ?? S Midline falx ?S Cavum septum pellucidi ??S Cisterna Magna ?? S Upper lip ?S Nasal bone ?S Eyes ? S Profile ? N Stomach ?S Kidneys ?S Urinary Bladder ?? S Diaphragm ?S Spine ? S Lower Extremities ?? S Upper Extremities ?? S Situs ? S Four chamber view ?? N LVOT ? S RVOT ? S ? Gender ?female (Mccloud: ??S = Seen, ??N = Not Seen, ??U = Unsatisfactory) ? Cervix: Length: 4.66 cm Approach: transvaginal Funneling: not present Belt Lacer Comments: Incomplete anomaly screen. Belt Lacer: ??Addi Solorzano RDMS (PRODUCT ASSURANCE ENGINEER) Images will be scanned into the record. Physician Interpretation: ?? The measurements today are consistent with menstrual dates. ??The ANUJA selected is based on her LMP and a prior ultrasound examination. The amniotic fluid volume is normal. ??The placenta is posterior. Profile view and 4 chamber heart views not adequately visualized, otherwise no sonographic signs of abnormality. Reassuring cervical length. Some aspects of the anatomy may not be well visualized due to position or poor acoustic properties. The patient was advised that ultrasound does not allow detection of all structural or chromosomal abnormalities. Interpreting Physician: Bao Pinto MD Karin Pinto MD US ORDERABLES * [id number] PLUS CORE (03/04/2023 4:25 PM CDT) Gestation Calix [facility] ACCOUNT BILL Fraction (%) 7% [facility] ACCOUNT BILL Gestational Age > or = 9w Yes [facility] ACCOUNT BILL Result Negative [facility] ACCOUNT BILL Water Manager Comments [facility] ACCOUNT BILL Comment: This specimen showed an expected representation of chromosome 21, 18 and 13 material. Clinical correlation is suggested. Approved By [facility] ACCOUNT BILL Comment:Mello Allred MD , PhD, Director, [employer] Trisomy 21 (Down Syndrome) Negative [facility] ACCOUNT BILL Trisomy 18 (Rosales Syndrome) Negative [facility] ACCOUNT BILL Trisomy 13 Negative [facility] ACCOUNT BILL Sex [facility] ACCOUNT BILL Comment:Consistent with Fema le Negative Predictive Value Note [facility] ACCOUNT BILL Comment: The Negative Predictive Value (NPV) for trisomy 21, 18, and 13 is greater than 99%. The NPV for SCA and ESS cannot be calculated as SCA and ESS are only reported when an abnormality is detected. Positive predictive value N/A [facility] ACCOUNT BILL About The Test [facility] ACCOUNT BILL Comment: The MaterniT(R) 21 PLUS laboratory-developed test (LDT) analyzes circulating cell-free DNA from a maternal blood sample. This test is used for screening purposes and not diagnostic. Clinical correlation is recommended. Validation data on twin pregnancies is limited and the ability of this test to detect aneuploidy in higher multiple gestations has not yet been validated. Test Method [facility] ACCOUNT BILL Comment: See Notes Circulating cell-free DNA was purified from the plasma component of maternal blood. The extracted DNA was then converted into a genomic DNA library for aneuploidy analysis of chromosomes 21, 18, and 13 via next generation sequencing.[1] Optional findings based on the test order include sex chromosome aneuploidy (SCA)[2], and enhanced sequencing series (ESS)[3], which will only be reported on as an additional finding when an abnormality is detected. SCA testing includes information on X and Y representation, while ESS testing includes deletions in selected regions (22q, 15q, 11q, 8q, 5p, 4p, 1p) and trisomy of chromosomes 16 and 22. Performance [facility] ACCOUNT BILL Comment: The performance characteristics of the MaterniT(R) 21 PLUS laboratory-developed test (LDT) have been determined in a clinical validation study with women at increased risk for chromosomal aneuploidy.[1-4] Performance Characteristics Note [facility] ACCOUNT BILL Comment: ! Sex ?! Accuracy: 99.4% ?! ! ! ! Region (associated syndrome) ?? ! Est. Sens# ! Est. Spec ! ! ! ! Trisomy 21 (Down Syndrome) ? ! 99.1% ?! 99.9% ? ! ! ! ! Trisomy 18 (Rosales Syndrome) ??! >99.9% ? ! 99.6% ? ! ! ! ! Trisomy 13 ([place] Syndrome) ?! 91.7% ?! 99.7% ? ! ! ! ! Sex Chromosome Aneuploidies## ??! 96.2% ?! 99.7% ? ! ! ! * As reported in [facility] database nstd37 [https://www.ncbi.nlm.nih.gov/dbvar/studies/nstd37/ ] # Estimated Sensitivity. Sensitivity estimated across the observed size distribution of each syndrome [per [employer] database nstd37] and across the range of fractions observed in routine clinical NIPT. Actual sensitivity can also be influenced by other factors such as the size of the event, total sequence counts, amplification bias, or sequence bias. ## Calix gestation only. Limitations Of The Test [facility] ACCOUNT BILL Comment: While the results of these tests are highly reliable, discordant results, including inaccurate sex prediction, may occur due to placental, maternal, or mosaicism or neoplasm; vanishing twin; prior maternal organ transplant; or other causes. These tests are screening tests and not diagnostic; they do not replace the accuracy and precision of diagnosis with CVS or amniocentesis. A patient with a positive test result should be referred for genetic counseling and offered invasive diagnosis for confirmation of test results.[5] The results of this testing, including the benefits and limitations, should be discussed with a qualified healthcare provider. management decisions, including termination of the , should not be based on the results of these tests alone. The healthcare provider is responsible for the use of this information in the management of their patient. ??Sex chromosomal aneuploidies are not reportable for known multiple gestations. A negative result does not ensure an unaffected nor does it exclude the possibility of other chromosomal abnormalities or defects which are not a part of these tests. An uninformative result may be reported, the causes of which may include, but are not limited to, insufficient sequencing coverage, noise or artifacts in the region, amplification or sequencing bias, or insufficient fraction. These tests are not intended to identify pregnancies at risk for neural tube defects or ventral wall defects. Testing for whole chromosome abnormalities (including sex chromosomes) and for subchromosomal abnormalities could lead to the potential discovery of both and maternal genomic abnormalities that could have major, minor, or no, clinical significance. Evaluating the significance of a positive or a non-reportable result may involve both invasive testing and additional studies on the mother. Such investigations may lead to a diagnosis of maternal chromosomal or subchromosomal abnormalities, which on occasion may be associated with benign or malignant maternal neoplasms. These tests may not accurately identify triploidy, balanced rearrangements, or the precise location of subchromosomal duplications or deletions; these may be detected by diagnosis with CVS or amniocentesis. The ability to report results may be impacted by maternal BMI, maternal weight, maternal systemic lupus erythematosus (SLE) and/or by certain pharmaceutical agents such as low molecular weight heparin (for example: Lovenox(R), Xaparin(R), Clexane(R) and Fragmin(R)). Note [facility] ACCOUNT BILL Comment: See Notes [employer]. is a subsidiary of [employer], using the brand [employer]. This test was developed and its performance characteristics determined by [employer]. It has not been cleared or approved by the Food and Drug Administration. This laboratory is certified under the Clinical Laboratory Improvement Amendments (CLIA) as qualified to perform high complexity clinical laboratory testing and accredited by the College of [place] [employer] (CAP). If there is future clinical need for adding MaterniT GENOME testing, this specimen will be available until term. [facility] samples will not be retained beyond 60 days. [facility] patients will have to send a new sample for re-sequencing ([facility] Test Code: 000999). References [facility] ACCOUNT BILL Comment: 1. Oly PALAFOX, et al. Elen Med. 2012;14(3):296-305. 2. Tr CORONA et al. Prenat Diag. 2013;33(6):591-597. 3. Santiago C, et al. Clin Chem. 2015 Apr;61(4):608-616. 4. Oly PALAFOX et al. Elen Med. 2011;13(11):913-920. 5. ACOG/SMFM Practice Bulletin No. 226, Mar 2020. Blood BLOOD SPECIMEN / Unknown 03/04/2023 4:25 PM CDT 03/04/2023 Narrative Resulting Agency Comment Lab Testing performed at: [email or web address] [address] [place] [address] ??[facility] [id number] Karin Pinto MD LAB - CHEMISTRY O RDERABLES [facility] ACCOUNT BILL [address] [place] [address] * US OB LESS THAN 14 WEEKS (03/04/2023 3:41 PM CDT) Anatomical Region Laterality Modality Abdomen Ultrasound Narrative 03/04/2023 3:41 PM CDT Karin Pinto MD ? 03/04/2023 ??5:01 PM ? [facility] PRODUCT ASSURANCE ENGINEER MINIER OB ULTRASOUND - FIRST TRIMESTER Patient Name: Tati Cm Study Date: 03/04/2023 , Age: 4 1990, 32 year old Pregnancies: BMI: 22.73 LMP: Patient's last menstrual period was 12/17/2022 (exact date). Latex allergy: No Gestational age by LMP: 11 wks 0 days Gestational age by today's US: ?11 wks 2 days History/ Indication: ?? dates/ viability CPT-4: ??66541 Transabdominal: No ?? Transvaginal: ??Yes Number of Fetuses: ??Single IUP Yolk Sac: ??seen Heart Motion: Yes Heart Rate: ??Visualized with movement CRL: ??4.46 cm Uterine orientation: ??Retroverted Left Ovary: ?? Length 2.07 cm ? Width ??1.87 cm ? Height 1.59 cm ? Volume 3.223 cc Right Ovary: ?? Length 3.10 cm ?? Width ??2.32 cm ?? Height 2.06 cm ?? Volume 7.757 cc ANUJA by LMP: 09/22/2022 ANUJA by today's US: 09/20/2022 Belt Lacer Comments: There is a 1.1 x 1.4 x 1.1cm simple cyst on the right ovary. There is a 1.9 x 1.6 x 1.5cm right sided para-ovarian cyst. Belt Lacer: Jyoti Fofana RT(R), [facility] Images will be scanned into the record. Physician Interpretation: Single IUP measuring c/w LMP. +FHR. Right ovary with a small anechoic simple cyst. Small simple anechoic para-ovarian cyst as well suspicious for a paratubal cyst. Left ovary unremarkable. Interpreting Physician: Bao Pinto MD Procedure Note Jyoti Fofana - 03/04/2023 3:41 PM CDT [facility] PRODUCT ASSURANCE ENGINEER MINIER OB ULTRASOUND - FIRST TRIMESTER Patient Name: Tait Cm Study Date: 03/04/2023 , Age: 4 1990, 32 year old Pregnancies: BMI: 22.73 LMP: Patient's last menstrual period was 12/17/2022 (exact date). Latex allergy: No Gestational age by LMP: 11 wks 0 days Gestational age by today's US: 11 wks 2 days History/ Indication: dates/ viability CPT-4: 50401 Transabdominal: No Transvaginal: Yes Number of Fetuses: Single IUP Yolk Sac: seen Heart Motion: Yes Heart Rate: Visualized with movement CRL: 4.46 cm Uterine orientation: Retroverted Left Ovary: Length 2.07 cm Width 1.87 cm Height 1.59 cm Volume 3.223 cc Right Ovary: Length 3.10 cm Width 2.32 cm Height 2.06 cm Volume 7.757 cc ANUJA by LMP: 09/22/2022 ANUJA by today's US: 09/20/2022 Belt Lacer Comments: There is a 1.1 x 1.4 x 1.1cm simple cyst on the right ovary. There is a 1.9 x 1.6 x 1.5cm right sided para-ovariancyst. Belt Lacer: Jyoti Fofana, RT(R), RDMS Images will be scanned into the record. Physician Interpretation: Single IUP measuring c/w LMP. +FHR. Right ovarywith a small anechoic simple cyst. Small simple anechoic para-ovarian cystas well suspicious for a paratubal cyst. Left ovary unremarkable. Interpreting Physician: Bao Pinto MD Karin Pinto MD US ORDERABLES * URINALYSIS AUTO - POINT OF CARE (02/18/2023 2:50 PM CDT) Clarity UA POCT clear [facility] Color UA POCT yellow [facility] Leukocyte UA neg Negative [facility] Nitrite UA POCT neg Negative [facility] Urobilinogen UA 0.2 0.1 - 1.0 [facility] Protein UA POCT neg Negative [facility] pH UA 6.0 5.0 - 8.0 pH units [facility] Blood UA neg Negative [facility] Specific [place] UA POCT 1.015 1.002 - 1.030 [facility] Ketone UA neg Negative [facility] Bilirubin UA POCT neg Negative [facility] Glucose UA neg Negative [facility] Urine URINE / Unknown 02/18/2023 2 :50 PM CDT Karin Pinto MD LAB - POINT OF CA RE ORDERABLES [facility] [address] , [facility] [address] [place] [address], [facility] [phone] * (ABNORMAL) OBSTETRIC PANEL RFLX CONFIRM (WO [...] Resulting Agency Comment Lab Testing performed at: [address] ??[facility] [id number] Karin Pinto MD LAB - CHEMISTRY O RDERABLES [facility] ACCOUNT BILL [address] [place] [address] * (ABNORMAL) RESULT REFLEXED (02/18/2023 11:48 AM CDT) Result 1 (A) [facility] ACCOUNT BILL Comment: Beta hemolytic Streptococcus, group B 10,000-25,000 colony forming units per mL Penicillin and ampicillin are drugs of choice for treatment of beta-hemolytic streptococcal infections. Susceptibility testing of penicillins and other beta-lactam agents, such as cefazolin, approved by the FDA for treatment of beta-hemolytic streptococcal infections need not be performed routinely because nonsusceptible isolates are extremely rare. ?. Other susceptibilities provided as guidance in treatment of urinary tract infections only. ?. Clindamycin susceptibility provided as guidance for intrapartum prophylaxis only (CDC 2010). Testing for inducible clindamycin resistance was performed using erythromycin and clindamycin in the D-zone test. Antimicrobial Susceptibility [facility] ACCOUNT BILL Comment: ? S = Susceptible; I = Intermediate; R = Resistant ? P = Positive; N = Negative ?MICS are expressed in micrograms per mL ?? Antibiotic ? RSLT#1 ?RSLT#2 ?RSLT#3 ?RSLT#4 Cefepime ? S Cefotaxime ? S Ceftriaxone ?S Clindamycin ?S 02/18/2023 11:4 8 AM CDT 02/18/2023 Narrative Resulting Agency Comment Lab Testing performed at: [facility] [address] ??[facility] [id number] Karin Pinto MD LAB - CHEMISTRY O [facility] ACC[facility] B[facility] [address] [place] [address] * INTERPRETATION REFLEXED (02/18/2023 11:48 AM CDT) Interpretation [facility] ACCOUNT BILL Comment: Not infected with HCV unless early or acute infection is suspected (which may be delayed in an immunocompromised individual), or other evidence exists to indicate HCV infection. 02/18/2023 11:4 8 AM CDT 02/18/2023 Narrative Resulting Agency Comment Lab Testing performed at: [facility] [place] [id number] [facility] ??[facility] [id number] Karin Pinto MD LAB - SEROLOGY OR DERABLES Performing Organization Address [facility] Co de Phone Number [facility] ACCOUNT BILL [address] [place] [address] * PAP CERVICAL CANCER SCREEN APT (09/07/2021 10:55 AM CDT) Age Gdln ACOG Testing 30-65 [facility] ACCOUNT BILL PART OF UTERINE CERVIX / Unknown 09/07/2021 10:55 AM CDT 09/08/2021 Narrative [facility] ACCOUNT BILL - 09/14/2021 3:08 PM CDT No. of containers..01 ThinPrep Vial Resulting Agency Comment Lab Testing performed at: [address] ??[facility] [id number] Karin Pinto MD LAB - PATHOLOGY/C YTOLOGY ORDERABLES [facility] ACCOUNT BILL [address] [place] [address] * (ABNORMAL) PAP IG LB +HPV APTIMA [...] Resulting Agency Comment Lab Testing performed at: [address] ??[facility] [id number] Karin Pinto MD LAB - PATHOLOGY/C YTOLOGY ORDERABLES [facility] ACCOUNT BILL [address] [place] [address] * TSH REFLEX FREE T4 (08/08/2021 11:21 AM LOCAL OPERATOR) TSH 0.808 0.450 - 4.500 uIU/mL [facility] ACCOUNT BILL Blood BLOOD SPECIMEN / Unknown 08/08/2021 11:21 AM LOCAL OPERATOR 08/08/2021 Narrative Resulting Agency Comment Lab Testing performed at: [facility] [place] [address] ??[facility] [id number] Gordon Mccullough MD LAB - CHEMISTRY OR DERABLES [facility] ACCOUNT BILL [address] [place] [address] * COMPREHENSIVE METABOLIC PANEL (08/08/2021 11:21 AM LOCAL OPERATOR) Glucose 95 65 - 99 mg/dL [facility] ACCOUNT BILL BUN 7 6 - 20 mg/dL [facility] ACCOUNT BILL Creatinine 0.76 0.57 - 1.00 mg/dL [facility] ACCOUNT BILL eGFR by CKD-EPI 107 >59 mL/min/1. 73 [facility] ACCOUNT BILL Comment: In accordance with recommendations from the NKF-ASN Task force, ??[facility] has updated its eGFR calculation to the 2020 CKD-EPI ??creatinine equation that estimates kidney function without a race ??variable. BUN/Creatinine Ratio 9 9 - 23 [facility] ACCOUNT BILL Sodium 138 134 - 144 mmol/L [facility] ACCOUNT BILL Potassium 4.6 3.5 - 5.2 mmol/L [facility] ACCOUNT BILL Chloride 101 96 - 106 mmol/L [facility] ACCOUNT BILL CO2 23 20 - 29 mmol/L [facility] ACCOUNT BILL Calcium 9.9 8.7 - 10.2 mg/dL [facility] ACCOUNT BILL Protein Total 7.0 6.0 - 8.5 g/dL [facility] ACCOUNT BILL Albumin 4.7 3.8 - 4.8 g/dL [facility] ACCOUNT BILL Globulin Total 2.3 1.5 - 4.5 g/dL [facility] ACCOUNT BILL Albumin/Globulin Ratio 2.0 1.2 - 2.2 [facility] ACCOUNT BILL Bilirubin Total 0.6 0.0 - 1.2 mg/dL [facility] ACCOUNT BILL Alkaline Phosphatase 56 44 - 121 IU/L [facility] ACCOUNT BILL AST 21 0 - 40 IU/L [facility] ACCOUNT BILL ALT 18 0 - 32 IU/L [facility] ACCOUNT BILL Blood BLOOD SPECIMEN / Unknown 08/08/2021 11:21 AM LOCAL OPERATOR 08/08/2021 Narrative Resulting Agency Comment Lab Testing performed at: [facility] [address] ??[facility] [id number] Gordon Mccullough MD LAB - CHEMISTRY OR DERABLES Performing Organization Address [facility] de Phone Number [facility] ACCOUNT BILL [address] [place] [address] * (ABNORMAL) LIPID PROFILE (LIPID PANEL) (08/08/2021 11:21 AM LOCAL OPERATOR) Cholesterol 218(H) 100 - 199 mg/dL [facility] ACCOUNT BILL Triglycerides 50 0 - 149 mg/dL [facility] ACCOUNT BILL HDL Cholesterol 121 >39 mg/dL [facility] ACCOUNT BILL VLDL Calculated 9 5 - 40 mg/dL [facility] ACCOUNT BILL LDL Calculated 88 0 - 99 mg/dL [facility] ACCOUNT BILL Comment NOT NEEDED [facility] ACCOUNT BILL Comment:Ancillary determined the test is not needed. Blood BLOOD SPECIMEN / Unknown 08/08/2021 11:21 AM LOCAL OPERATOR 08/08/2021 Narrative Resulting Agency Comment Lab Testing performed at: [facility] [address] ??[facility] [id number] Gordon Mccullough MD LAB - CHEMISTRY OR DERABLES Performing Organization Address [facility] de Phone Number [facility] ACCOUNT BILL [address] [place] [address] Care Teams Registered Nurse Midwife Relationship Specialty Start Date End Date Gordon Mccullough MD PCP - General Family Medicine 08/08/21
--- OUTSIDE RECORDS SUMMARY | 2024-06-17 07:42 | XMS_ITS | Encounter Summary ---
Author Organization [facility] Address [address] [place] [address] Care Team Providers Care Plug Drill Operator Name Role Phone Gordon Mccullough MD Primary Care Provider [phone]- [phone] Reason for Visit * Reason Comments Routine Visit Encounter Details Date Type Department Care Team (Late st Contact Info) Description 09/09/2023 11:00 AM CDT visit [facility] Medical [facility] - HOME IMPROVEMENT INSTALLER [address] [place] [address], [address] [place] [address] Rafael Mcelroy PA-C [address] [place] [address] [place]: 38w0d Social History Tobacco Use Types Packs/Day Years Used Date Smoking Tobacco: Never Smokeless Tobacco: Never Tobacco Cessation:Counseling Given: Not Answered Alcohol Use Standard Drinks/Week Comments Not Currently 4 (1 standard drink = 0.6 oz pur e alcohol) PHQ-2 Answer Date Recorded Patient Health Questionnaire-2 Score 0 08/26/2023 Comments Yes Sex and Gender Information Value Date Recorded Sex Assigned at Female 08/04/2021 1:55 PM TIRE SERVICE TECHNICIAN Gender Identity Female 08/04/2021 1:55 PM TIRE SERVICE TECHNICIAN Sexual Orientation Not on file documented as of this encounter Last Filed Vital Signs Vital Sign Reading Time Taken Comments Blood Pressure 122/82 09/09/2023 11:01 AM CDT Pulse - - Temperature - - Respiratory Rate - - Oxygen Saturation - - Inhaled Oxygen Concentration - - Weight 85.7 kg (189 lb) 09/09/2023 11:01 AM CDT Height 180.3 cm (5' 11 ) 09/09/2023 11:01 AM CDT Body Mass Index 26.36 09/09/2023 11:01 AM CDT documented in this encounter Progress Notes * Rafael Mcelroy PA-C - 09/09/2023 12:42 PM CDT 32 y/o F at 38w0d Here for routine care Doing well, no concerns. +FM. Contractions: some, nothing consistent. No VB or LOF. Labor precautions discussed. IOL scheduled 09/17/23. Associated attestation - Slime Maria MD - 09/09/2023 5:09 PM CDT Slime Ovalles M.D., in collaboration with this Physician Manager Research Development, have reviewed her work recordand practice regarding quality and appropriateness of professional services provided. documented in this encounter Plan of Treatment Upcoming Encounters Date Type Department Care Team (Late st Contact Info) Description 07/21/2024 2:20 PM TIRE SERVICE TECHNICIAN Office Visit [facility] - Internal Medicine [address] [place] [address] Gordon Mccullough MD [address] [place] [address] documented as of this encounter Visit Diagnoses Diagnosis Encounter for supervision of normal in first trimester, unspecified (HCC)- Primary 38 weeks gestation of (HCC) state, incidental documented in this encounter Care Teams Plug Drill Operator Relationship Specialty Start Date End Date Gordon Mccullough MD PCP - General Family Medicine 08/08/21 documented as of this encounter
--- OUTSIDE RECORDS SUMMARY | 2024-06-17 07:43 | XMS_ITS | Encounter Summary ---
Author Organization [facility] Address [address] [place] [address] Care Team Providers Care [employer] Skills Name Role Phone Gordon Mccullough MD Primary Care Provider [phone]- [phone] Reason for Visit * Reason Comments Routine Visit Encounter Details Date Type Department Care Team (Late st Contact Info) Description 03/04/2023 4:00 PM CDT visit [facility] Medical [facility] - BONE CHAR KILN TENDER [address] [place] [address], [address] [address] Karin Pinto MD [address] [place] [address] [place]: 11w0d Social History Tobacco Use Types Packs/Day Years Used Date Smoking Tobacco: Never Smokeless Tobacco: Never Alcohol Use Standard Drinks/Week Comments Not Currently 4 (1 standard drink = 0.6 oz pur e alcohol) PHQ-2 Answer Date Recorded Patient Health Questionnaire-2 Score 0 02/25/2023 Comments Yes Sex and Gender Information Value Date Recorded Sex Assigned at Female 08/04/2021 1:55 PM COUNTY COMMISSIONER Gender Identity Female 08/04/2021 1:55 PM COUNTY COMMISSIONER Sexual Orientation Not on file documented as of this encounter Last Filed Vital Signs Vital Sign Reading Time Taken Comments Blood Pressure 118/72 03/04/2023 4:03 PM CDT Pulse - - Temperature - - Respiratory Rate - - Oxygen Saturation - - Inhaled Oxygen Concentration - - Weight 74.4 kg (164 lb) 03/04/2023 4:03 PM CDT Height 180.3 cm (5' 11 ) 03/04/2023 4:03 PM CDT Body Mass Index 22.87 03/04/2023 4:03 PM CDT documented in this encounter Progress Notes * Karin Pinto MD - 03/04/2023 4:17 PM CDT CC: Routine Care Patient is doing well. First trimester ultrasound revealed a single IUP measuring c/w LMP. She reports fatigue and mild nausea without emesis. Denies VB or significant cramping/ctx. labs reviewed. GBSuria in the first trimester. Plan for abx while in labor. Genetic testing discussed. Patient desires MaterniT with gender. Order placed. Follow-up in 4-5 weeks for routine PNC. documented in this encounter Plan of Treatment Upcoming Encounters Date Type Department Care Team (Late st Contact Info) Description 07/21/2024 2:20 PM COUNTY COMMISSIONER Office Visit [facility] - Internal Medicine [address] [place] [address] Gordon Mccullough MD [address] [place] [address] documented as of this encounter Procedures Procedure Name Priority Date/Time Associated Diagnosis Comments [id number] PLUS CORE Routine 03/04/2023 4:25 PM CDT 11 weeks gestation of (HCC) documented in this encounter Results * [id number] PLUS CORE (03/04/2023 4:25 PM CDT) Gestation Calix [facility] ACCOUNT BILL Fraction (%) 7% [facility] ACCOUNT BILL Gestational Age > or = 9w Yes [facility] ACCOUNT BILL Result Negative [facility] ACCOUNT BILL Wire Puller Comments [facility] ACCOUNT BILL Comment: This specimen showed an expected representation of chromosome 21, 18 and 13 material. Clinical correlation is suggested. Approved By [facility] ACCOUNT BILL Comment:Mello Allred MD , PhD, Director, [place] Trisomy 21 (Down Syndrome) Negative [facility] ACCOUNT BILL Trisomy 18 (Rosales Syndrome) Negative [facility] ACCOUNT BILL Trisomy 13 Negative [facility] ACCOUNT BILL Sex [facility] ACCOUNT BILL Comment:Consistent with Roma kruger Negative Predictive Value Note [facility] ACCOUNT BILL [...] ! ! ! * As reported in [facility] database [id number] [https://www.ncbi.nlm.nih.gov/dbvar/studies/nstd37/ ] # Estimated [...] example: Lovenox(R), Xaparin(R), Clexane(R) and Fragmin(R)). Note [facility] ACCOUNT BILL Comment: See Notes [employer]. is a subsidiary of [employer], using the brand [employer]. This test was developed and its performance characteristics determined by [employer]. It has not been cleared or approved by the Food and Drug Administration. This laboratory is certified under the Clinical Laboratory Improvement Amendments (CLIA) as qualified to perform high complexity clinical laboratory testing and accredited by the College of [place] [employer] (CAP). If there is future clinical need for adding MaterniT GENOME testing, this specimen will be available until term. [facility] samples will not be retained beyond 60 days. [facility] patients will have to send a new sample for re-sequencing ([facility] Test Code: 198756). References [facility] ACCOUNT BILL Comment: 1. Oly PALAFOX, et al. Elen Med. 2012;14(3):296-305. 2. Tr CORONA, et al. Prenat Diag. 2013;33(6):591-597. 3. Santiago Murrell, et al. Clin Chem. 2015 Apr;61(4):608-616. 4. Oly PALAFOX, et al. Elen Med. 2011;13(11):913-920. 5. ACOG/SMFM Practice Bulletin No. 226, Mar 2020. Blood BLOOD SPECIMEN / Unknown 03/04/2023 4:25 PM CDT 03/04/2023 Narrative Resulting Agency Comment Lab Testing performed at: [facility] ??[facility] [id number] Karin Pinto MD LAB - CHEMISTRY O RDERABLES [facility] ACCOUNT BILL [address] [place] [address] documented in this encounter Visit Diagnoses Diagnosis 11 weeks gestation of (HCC)- Primary state, incidental Anxiety in , antepartum (HCC) Mental disorders of mother, antepartum documented in this encounter Care Teams [employer] Combat Skills Relationship Specialty Start Date End Date Gordon Mccullough MD PCP - General Family Medicine 08/08/21 documented as of this encounter
--- OUTSIDE RECORDS SUMMARY | 2024-06-17 07:43 | XMS_ITS | Encounter Summary ---
Author Organization [facility] Address [address] [place] [address] Care Team Providers Care Independent Contractor Name Role Phone Gordon Mccullough MD Primary Care Provider +1- [phone] Reason for Visit * Reason Onset Date Comments MEDICATION REFILL 06/07/2023 Encounter Details Date Type Department Care Team (Late Contact Info) Description 06/07/2023 Refill [facility] - ADVANCED PRACTICE PROVIDER [address] [place] [phone] Karin Pinto MD [address] [place] [address] MEDICATION REFILL Social History Tobacco Use Types Packs/Day Years Used Date Smoking Tobacco: Never Smokeless Tobacco: Never Alcohol Use Standard Drinks/Week Comments Not Currently 4 (1 standard drink = 0.6 oz pur e alcohol) PHQ-2 Answer Date Recorded Patient Health Questionnaire-2 Score 0 05/03/2023 Comments Yes Sex and Gender Information Value Date Recorded Sex Assigned at Female 08/04/2021 1:55 PM ORGAN INSTALLER Gender Identity Female 08/04/2021 1:55 PM ORGAN INSTALLER Sexual Orientation Not on file documented as of this encounter Plan of Treatment Upcoming Encounters Date Type Department Care Team (Late Contact Info) Description 07/21/2024 2:20 PM ORGAN INSTALLER Office Visit [facility] - Internal Medicine [address] [place] [address] Gordon Mccullough MD [address] [place] [phone] documented as of this encounter Visit Diagnoses Diagnosis Visit for confirmation of test result with physical exam examination or test, unconfirmed documented in this encounter Care Teams Independent Contractor Relationship Specialty Start Date End Date Gordon Mccullough MD PCP - General Family Medicine 08/08/21 documented as of this encounter
--- OUTSIDE RECORDS SUMMARY | 2024-06-17 07:43 | XMS_ITS | Encounter Summary ---
Author Organization [facility] Address [address] [place] [address] Care Team Providers Care Temporary Staff Accountant Name Role Phone Gordon Mccullough MD Primary Care Provider +1- [phone] Encounter Details Date Type Department Care Team (Latest Contact Info) Description 06/04/2023 Travel Social History Tobacco Use Types Packs/Day Years Used Date Smoking Tobacco: Never Smokeless Tobacco: Never Alcohol Use Standard Drinks/Week Comments Not Currently 4 (1 standard drink = 0.6 oz pur e alcohol) PHQ-2 Answer Date Recorded Patient Health Questionnaire-2 Score 0 05/03/2023 Comments Yes Sex and Gender Information Value Date Recorded Sex Assigned at Female 08/04/2021 1:55 PM PROPERTY TECHNICIAN Gender Identity Female 08/04/2021 1:55 PM PROPERTY TECHNICIAN Sexual Orientation Not on file documented as of this encounter Plan of Treatment Upcoming Encounters Date Type Department Care Team (Late st Contact Info) Description 07/21/2024 2:20 PM PROPERTY TECHNICIAN Office Visit [facility] Medical [facility] - Internal Medicine [address] [place] [address] Gordon Mccullough MD [address] [facility] [place] [id number] documented as of this encounter Visit Diagnoses Not on filedocumented in this encounter Care Teams Temporary Staff Accountant Relationship Specialty Start Date End Date Gordon Mccullough MD PCP - General Family Medicine 08/08/21 documented as of this encounter
--- OUTSIDE RECORDS SUMMARY | 2024-06-17 07:43 | XMS_ITS | Encounter Summary ---
Author Organization [facility] Address [address] [place], [place] [address] [address] Care Team Providers Care Supervisor Byproducts Name Role Phone Gordon Mccullough MD Primary Care Provider +1- [phone] Reason for Visit * Reason Comments IUD Removal and preconce ption appt Encounter Details Date Type Department Care Team (Late st Contact Info) Description 05/21/2022 10:45 AM SECOND GRADE TEACHER Office Visit [facility] Medical [facility] - COIL REPAIR TECHNICIAN [address] [place] [address], [address] [address] Karin Pinto MD [address] [place] [phone] Encounter for IUD removal (Primary Dx); Encounter for preconception consultation Social History Tobacco Use Types Packs/Day Years Used Date Smoking Tobacco: Never Smokeless Tobacco: Never Tobacco Cessation:Counseling Given: Not Answered Alcohol Use Standard Drinks/Week Comments Yes 4 (1 standard drink = 0.6 oz pur e alcohol) PHQ-2 Answer Date Recorded PHQ2 TOTAL SCORE 1 11/21/2021 Sex and Gender Information Value Date Recorded Sex Assigned at Female 08/04/2021 1:55 PM SECOND GRADE TEACHER Gender Identity Female 08/04/2021 1:55 PM SECOND GRADE TEACHER Sexual Orientation Not on file documented as of this encounter Last Filed Vital Signs Vital Sign Reading Time Taken Comments Blood Pressure 120/82 05/21/2022 10:46 AM SECOND GRADE TEACHER Pulse - - Temperature - - Respiratory Rate - - Oxygen Saturation - - Inhaled Oxygen Concentration - - Weight 74.4 kg (164 lb) 05/21/2022 10:46 AM SECOND GRADE TEACHER Height 180.3 cm (5' 11 ) 05/21/2022 10:46 AM SECOND GRADE TEACHER Body Mass Index 22.87 05/21/2022 10:46 AM SECOND GRADE TEACHER documented in this encounter Progress Notes * Karin Pinto MD - 05/21/2022 10:53 AM CST SUBJECTIVE: Tati Love is a 31 year old No LMP recorded (lmp unknown). Patient has had an implant.female who presents for IUD removal and preconception counseling. She desires to start attempting to conceive early next year. She takes Zoloft for anxiety and depression. She takes Seroquel as well but states it is mostly to help her sleep. OB History 0 Para 0 Term 0 0 AB 0 Living 0 SAB 0 IAB 0 Ectopic 0 Multiple 0 Live Births 0 Obstetric Comments No hx of abnormal PAP smears No hx of STIs Past Medical History: Diagnosis Date ??? Anxiety ??? Depression Past Surgical History: Procedure Laterality Date ??? NEGATIVE SURGICAL HISTORY Family History Problem Relation Name Age of Onset ??? Depression Mother Current Outpatient Medications Medication Sig Dispense Refill ??? levonorgestrel (MIRENA) 20 MCG/24HR IUD 1 Each by Intrauterine route once ??? QUEtiapine (SEROQUEL) 25 MG tablet Take 1 (one) tablet by mouth at bedtime Reasons: GeneralizedAnxiety Disorder 90 tablet 2 ??? sertraline (Zoloft) 100 MG tablet Take 1.5 (one and one-half) tablets by mouth once daily Reasons: Generalized Anxiety Disorder 135 tablet 1 No current facility-administered medications for this visit. No Known Allergies Social History Socioeconomic History ??? Marital status: Spouse name: Not on file ??? Number of children: Not on file ??? Years of education: Not on file ??? Highest education level: Not on file Occupational History ??? Not on file Tobacco Use ??? Smoking status: Never ??? Smokeless tobacco: Never Vaping Use ??? Vaping Use: Some days Substance and Sexual Activity ??? Alcohol use: Yes Alcohol/week: 4.0 standard drinks Types: 4 Alcoholic drink(s) per week ??? Drug use: Never ??? Sexual activity: Yes Partners: Male Other Topics Concern ??? Not on file Social History Narrative ??? Not on file Social Determinants of Health Financial Resource Strain: Not on file Food Insecurity: Not on file Transportation Needs: Not on file Physical Activity: Not on file Stress: Not on file Social Connections: Not on file Intimate Partner Violence: Not on file Housing Stability: Not on file Review of Systems A comprehensive review of systems was negative except as described in HPI. Objective: BP 120/82 Ht 5' 11 Wt 164 lb General appearance: alert, cooperative, no distress Heart: acyanotic Lungs: non-labored breathing External genitalia: normal general appearance Urinary system: urethral meatus normal Vaginal: normal mucosa without prolapse or lesions, normal without tenderness, induration or massesand normal rugae Cervix: normal appearance, IUD string appropriately placed prior to removal IUD Removal Note Pre-operative Diagnosis: Desires Mirena IUD out for conception Post-operative Diagnosis: same Surgeon: Karin Pinto MD Indications: See Pre-op Diagnosis Procedure Details The risks (including infection, bleeding, pain, and uterine perforation) and benefits of the procedure were explained to the patient and verbal informed consent was obtained. The patient was placed in the dorsal lithotomy position. A speculum was inserted in the vagina. Ringed forceps used to graspIUD strings. Mirena IUD was removed intact from uterus. The patient tolerated the procedure well. Condition: Stable Complications: None Assessment: Encounter Diagnoses Name Primary? Encounter for IUD removal Yes ??? Encounter for preconception consultation Plan: Mirena IUD removed as above. Patient tolerated well. She was advised to call for any fever or for prolonged or severe pain or bleeding. She was advised to use OTC analgesics as needed for mild to moderate pain. PNV recommended. Encouraged abstaining from alcohol during the second half of her menstrual cycle since there is no known safe level of alcohol in . Recommend she start tracking her menstrual cycle with a tracking romana. Discussed safe medications in . Many psychiatric medications are category C, including all the medications that she takes. This means animal studies have shown an adverse effect onthe fetus but there are no adequate studies in humans to definitively assess safety, however benefits may warrant use of the medication despite risks. Per ACOG, maternal psychiatric illness, if inadequately treated or untreated, may result in poor compliance with care, inadequate nutrition, exposure to additional medication or herbal remedies, increased alcohol and tobacco use, deficits in mother-infant bonding, and disruptions within the family environment. Recommended reduction of medication as tolerated especially in the first trimester. Patient stated understanding and agreement.She will assess whether other sleep medications may satisfactorily replace Seroquel. Preconception carrier testing discussed. Patient desires CF and SMS testing. Orders placed. Follow-up for next WWE or NOB visit. Orders Placed This Encounter ??? SPINAL MUSCULAR ATROPHY CARRIER Order Specific Question: Release to patient Answer: Immediate ??? CYSTIC FIBROSIS EXPANDED PANEL Patient to call [facility] [phone] to speak with genetic counselor before collecting sample Order Specific Question: Release to patient Answer: Immediate ND GRADE TEACHER documented in this encounter Plan of Treatment Upcoming Encounters Date Type Department Care Team (Late st Contact Info) Description 07/21/2024 2:20 PM SECOND GRADE TEACHER Office Visit [facility] - Internal Medicine [address] [place] [address] Gordon Mccullough MD [address] [place] [phone] Scheduled Orders Name Type Priority Associated Diagnoses Orde r Schedule SPINAL MUSCULAR ATROPHY CARRIER Lab Routine Encounter for preconception consultation Ordered: 05/21/2022 CYSTIC FIBROSIS EXPANDED PANEL Lab Routine Encounter for preconception consultation Ordered: 05/21/2022 documented as of this encounter Visit Diagnoses Diagnosis Encounter for IUD removal- Primary Encounter for removal of intrauterine contraceptive device Encounter for preconception consultation documented in this encounter Care Teams Supervisor Byproducts Relationship Specialty Start Date End Date Gordon Mccullough MD PCP - General Family Medicine 08/08/21 documented as of this encounter
--- OUTSIDE RECORDS SUMMARY | 2024-06-17 07:43 | XMS_ITS | Encounter Summary ---
Author Organization [facility] Address [address] [facility] [place] [address] Care Team Providers Care Journeyman Machinist Name Role Phone Gordon Mccullough MD Primary Care Provider +1- [phone] Reason for Referral * Radiology Services (Routine) - Closed Specialty Diagnoses / Procedures Referred By Contac t Referred To Contact Diagnoses 16 weeks gestation of (HCC) Procedures US OB ANOMALY Karin Pinto MD [facility] [address] [address] Referral ID Status Reason Start Date Expiration Date Visits Re quested Visits Authorized [id number] Closed 04/08/2023 04/07/2024 1 1 Reason for Visit * Reason Comments Routine Visit Encounter Details Date Type Department Care Team (Late Contact Info) Description 04/08/2023 11:00 AM CDT visit [facility] - INDUSTRIAL ENGINEERING TECHNICIAN [address] [place] [address], [address] [place] [address] Karin Pinto MD [facility] [place] [address] [address] [place]: [id number] Social History Tobacco Use Types Packs/Day Years Used Date Smoking Tobacco: Never Smokeless Tobacco: Never Tobacco Cessation:Counseling Given: Not Answered Alcohol Use Standard Drinks/Week Comments Not Currently 4 (1 standard drink = 0.6 oz pur e alcohol) PHQ-2 Answer Date Recorded Patient Health Questionnaire-2 Score 0 02/25/2023 Comments Yes Sex and Gender Information Value Date Recorded Sex Assigned at Female 08/04/2021 1:55 PM NAVAL SCIENCE TEACHER Gender Identity Female 08/04/2021 1:55 PM NAVAL SCIENCE TEACHER Sexual Orientation Not on file documented as of this encounter Last Filed Vital Signs Vital Sign Reading Time Taken Comments Blood Pressure 118/72 04/08/2023 11:12 AM CDT Pulse - - Temperature - - Respiratory Rate - - Oxygen Saturation - - Inhaled Oxygen Concentration - - Weight 77.9 kg (171 lb 12.8 oz) 023 11:12 AM CDT Height 180.3 cm (5' 11 ) 04/08/2023 11: 12 AM CDT Body Mass Index 23.96 04/08/2023 11:12 AM CDT documented in this encounter Progress Notes * Karin Pinto MD - 04/08/2023 11:15 AM CDT CC: Routine Care ?? Patient is doing well. She reports mild fatigue otherwise no significant concerns. Denies VB or significant cramping/ctx. MaterniT with gender c/w low- risk female. Weight gain reviewed. Follow-up in 4 weeks for routine PNC and anatomy scan. documented in this encounter Plan of Treatment Upcoming Encounters Date Type Department Care Team (Late st Contact Info) Description 07/21/2024 2:20 PM NAVAL SCIENCE TEACHER Office Visit [facility] - Internal Medicine [address] [facility] [place] [address] Gordon Mccullough MD [address] [facility] [place] [address] documented as of this encounter Results * US OB ANOMALY (05/06/2023 8:36 AM NAVAL SCIENCE TEACHER) Anatomical Region Laterality Modality Pelvis Ultrasound Narrative 05/06/2023 8:36 AM NAVAL SCIENCE TEACHER Karin Pinto MD ? 05/06/2023 ??9:43 AM ? [facility] INDUSTRIAL ENGINEERING TECHNICIAN [place] OB ULTRASOUND - ANOMALY SCREEN Patient Name: Tati Cm Study Date: 05/06/2023 , Age: 4 1990, 32 year old Pregnancies: BMI: 23.96 LMP: Patient's last menstrual period was 12/17/2022 (exact date). Latex allergy: No Gestational age by ANUJA: 20 wks 0 days Gestational age by today's US: ?20 wks 1 days ANUJA: ?09/23/2023 History/ Indication: ?? Anomaly screen CPT-4: ??31527 / 54533 Transabdominal: Yes ?? Transvaginal: ??Yes Presentation: cephalic [...] 4.66 cm Approach: transvaginal Funneling: not present Side Panel Padder Comments: Incomplete anomaly screen. Side Panel Padder: ??Addi Solorzano RDMS (INDUSTRIAL ENGINEERING TECHNICIAN) Images will be scanned into the record. [...] Interpreting Physician: Bao Pinto MD Procedure Note Addi Solorzano - 05/06/2023 8:36 AM CST [facility] INDUSTRIAL ENGINEERING TECHNICIAN [place] OB ULTRASOUND - ANOMALY SCREEN Patient Name: Tati Cm Study Date: 05/06/2023 , Age: 4 1990, 32 year old Pregnancies: BMI: 23.96 LMP: Patient's last menstrual period was 12/17/2022 (exact date). Latex allergy: No Gestational age by ANUJA: 20 wks 0 days Gestational age by today's US: 20 wks 1 days ANUJA: 09/23/2023 History/ Indication: Anomaly screen CPT-4: 01410 / 25182 Transabdominal: Yes Transvaginal: Yes Presentation: cephalic Placenta: [...] 4.66 cm Approach: transvaginal Funneling: not present Side Panel Padder Comments: Incomplete anomaly screen. Side Panel Padder: Addi Solorzano RDMS (INDUSTRIAL ENGINEERING TECHNICIAN) Images will be scanned into the record. [...] Pinto MD Karin Pinto MD US ORDERABLES documented in this encounter Visit Diagnoses Diagnosis 16 weeks gestation of (HCC)- Primary state, incidental Anxiety in , antepartum (HCC) Mental disorders of mother, antepartum 20 weeks gestation of (HCC)- Primary state, incidental screening for malformation using ultrasonics (HCC) Encounter for routine screening for malformation using ultrasonics Encounter for screening for cervical length (HCC) 16 weeks gestation of (HCC) state, incidental documented in this encounter Care Teams Journeyman Machinist Relationship Specialty Start Date End Date Gordon Mccullough MD PCP - General Family Medicine 08/08/21 documented as of this encounter
--- OUTSIDE RECORDS SUMMARY | 2024-06-17 07:43 | XMS_ITS ---
Author Organization [facility] Address [address] [place] [address] Care Team Providers Care Blind Stitch Machine Operator Name Role Phone Gordon Mccullough MD Primary Care Provider +1- [phone] Acute DC - [facility] Status:Closed (Closed) Start date:09/20/2023 Enrollment reason:Acute Discharge End date:2023 Close reason:Unable to reach patient Continued Care and Services Coordination
--- OUTSIDE RECORDS SUMMARY | 2024-06-17 07:43 | XMS_ITS | Encounter Summary ---
Author Organization [facility] Address [address] [place] [address] Care Team Providers Care Splicer Helper Name Role Phone Gordon Mccullough MD Primary Care Provider +1- [phone] Reason for Referral * (Routine) - Closed Specialty Diagnoses / Procedures Referred By Contac t Referred To Contact Diagnoses 20 weeks gestation of (HCC) screening for malformation using ultrasonics (HCC) Encounter for screening for cervical length (HCC) Procedures VT SONO COMPLETE Karin Pinto MD [address] [address] Referral ID Status Reason Start Date Expiration Date Visits Re quested Visits Authorized [id number] Closed 05/06/2023 05/05/2024 1 1 LE LOOM WEAVER * (Routine) - Closed Specialty Diagnoses / Procedures Referred By Contac t Referred To Contact Diagnoses 20 weeks gestation of (HCC) screening for malformation using ultrasonics ([facility]) Encounter for screening for cervical length (HCC) Procedures VT ULTRASND,PREG UTER,TRANSVAGIN Karin Pinto MD [address] [address] Referral ID Status Reason Start Date Expiration Date Visits Re quested Visits Authorized [id number] Closed 05/06/2023 05/05/2024 1 1 LE LOOM WEAVER * Radiology Services (Routine) - Closed Specialty Diagnoses / Procedures Referred By Contac t Referred To Contact Diagnoses 20 weeks gestation of (HCC) screening for malformation using ultrasonics (HCC) Encounter for screening for cervical length ([facility]) Procedures US OB TRANSVAGINAL Karin Pinto MD [address] [place] [address] [place] [phone] Referral ID Status Reason Start Date Expiration Date Visits Re quested Visits Authorized [id number] Closed 05/06/2023 05/05/2024 1 1 LE LOOM WEAVER Reason for Visit * Reason Comments Ultrasound Encounter Details Date Type Department Care Team (Latest Contact Info) Description 05/06/2023 8:30 AM NEEDLE LOOM WEAVER OBGYN RADIOLOGY [facility] - JUSTOWRITER OPERATOR [address] [place] [address], [address] [place] [phone] 20 weeks gestation of (HCC) ; screening for malformation using ultrasonics (HCC); Encounter for screening for cervical length ([facility]); 16 weeks gestation of ([facility]) Social History Tobacco Use Types Packs/Day Years Used Date Smoking Tobacco: Never Smokeless Tobacco: Never Alcohol Use Standard Drinks/Week Comments Not Currently 4 (1 standard drink = 0.6 oz pur e alcohol) PHQ-2 Answer Date Recorded Patient Health Questionnaire-2 Score 0 05/03/2023 Comments Yes Sex and Gender Information Value Date Recorded Sex Assigned at Female 08/04/2021 1:55 PM NEEDLE LOOM WEAVER Gender Identity Female 08/04/2021 1:55 PM NEEDLE LOOM WEAVER Sexual Orientation Not on file documented as of this encounter Procedure Notes * Addi Solorzano - 05/06/2023 8:36 AM CSTAssociated Order(s): US OB ANOMALY; US OB TRANSVAGINAL [facility] JUSTOWRITER OPERATOR [place] OB ULTRASOUND - ANOMALY SCREEN Patient Name: Tati Cm Study Date: 05/06/2023 , Age: 4 1990, 32 year old Pregnancies: BMI: 23.96 LMP: Patient's last menstrual period was 12/17/2022 (exact date). Latex allergy: No Gestational age by ANUJA: 20 wks 0 days Gestational age by today's US: 20 wks 1 days ANUJA: 09/23/2023 History/ Indication: Anomaly screen CPT-4: 84214 / 88951 Transabdominal: Yes Transvaginal: Yes Presentation: cephalic Placenta: [...] 4.66 cm Approach: transvaginal Funneling: not present Fountain Attendant Comments: Incomplete anomaly screen. Fountain Attendant: Addi oSlorzano RDMS (JUSTOWRITER OPERATOR) Images will be scanned into the record. Physician Interpretation: The measurements today are consistent with menstrual dates. The ANUJA selected is based on her LMP and a prior ultrasound examination. The amniotic fluid volume is normal. Theplacenta is posterior. Profile view and 4 chamber heart views not adequately visualized, otherwise no sonographic signs of abnormality. Reassuring cervical length. Some aspects of the kae taz may not be well visualized due to position or poor acoustic properties. The patient was advised that ultrasound does not allow detection of all structural or chromosomal abnormalities. Interpreting Physician: Bao Pinto MD LE LOOM WEAVER documented in this encounter Plan of Treatment Upcoming Encounters Date Type Department Care Team (Late st Contact Info) Description 07/21/2024 2:20 PM NEEDLE LOOM WEAVER Office Visit [facility] - Internal Medicine [address] [facility] [place] [address] Gordon Mccullough MD [address] [place] [address] documented as of this encounter Procedures Procedure Name Priority Date/Time Associated Diagnosis Comments US OB ANOMALY Routine 05/06/2023 8:36 AM NEEDLE LOOM WEAVER 16 weeks gestation of (HCC) US OB TRANSVAGINAL Routine 05/06/2023 8: 36 AM NEEDLE LOOM WEAVER 20 weeks gestation of (HCC) screening for malformation using ultrasonics ([facility]) Encounter for screening for cervical length ([facility]) documented in this encounter Results * US OB ANOMALY (05/06/2023 8:36 AM NEEDLE LOOM WEAVER) Anatomical Region Laterality Modality Pelvis Ultrasound Narrative 05/06/2023 8:36 AM NEEDLE LOOM WEAVER Karin Pinto MD ? 05/06/2023 ??9:43 AM ? [facility] JUSTOWRITER OPERATOR [place] [facility] ULTRASOUND - ANOMALY SCREEN Patient Name: Tati Cm Study Date: 05/06/2023 , Age: 4 1990, 32 year old Pregnancies: BMI: 23.96 LMP: Patient's last menstrual period was 12/17/2022 (exact date). Latex allergy: No Gestational age by ANUJA: 20 wks 0 days Gestational age by today's US: ?20 wks 1 days ANUJA: ?09/23/2023 History/ Indication: ?? Anomaly screen CPT-4: ??83009 / 44935 Transabdominal: Yes ?? Transvaginal: ??Yes Presentation: cephalic [...] 4.66 cm Approach: transvaginal Funneling: not present Fountain Attendant Comments: Incomplete anomaly screen. Fountain Attendant: ??dAdi Solorzano RDMS (JUSTOWRITER OPERATOR) Images will be scanned into the record. [...] Addi Solorzano - 05/06/2023 8:36 AM CST [facility] JUSTOWRITER OPERATOR [place] OB ULTRASOUND - ANOMALY SCREEN Patient Name: Tati Cm Study Date: 05/06/2023 , Age: 4 1990, 32 year old Pregnancies: BMI: 23.96 LMP: Patient's last menstrual period was 12/17/2022 (exact date). Latex allergy: No Gestational age by ANUJA: 20 wks 0 days Gestational age by today's US: 20 wks 1 days ANUJA: 09/23/2023 History/ Indication: Anomaly screen CPT-4: 13754 / 97568 Transabdominal: Yes Transvaginal: Yes Presentation: cephalic Placenta: [...] 4.66 cm Approach: transvaginal Funneling: not present Fountain Attendant Comments: Incomplete anomaly screen. Fountain Attendant: Addi Solorzano RDMS (JUSTOWRITER OPERATOR) Images will be scanned into the record. [...] * US OB TRANSVAGINAL (05/06/2023 8:36 AM NEEDLE LOOM WEAVER) Anatomical Region Laterality Modality Pelvis, Abdomen Ultrasound Narrative 05/06/2023 8:36 AM NEEDLE LOOM WEAVER Karin Pinto MD ? 05/06/2023 ??9:43 AM ? [facility] JUSTOWRITER OPERATOR [place] OB ULTRASOUND - ANOMALY SCREEN Patient Name: Tati Cm Study Date: 05/06/2023 , Age: 4 1990, 32 year old Pregnancies: BMI: 23.96 LMP: Patient's last menstrual period was 12/17/2022 (exact date). Latex allergy: No Gestational age by ANUJA: 20 wks 0 days Gestational age by today's US: ?20 wks 1 days ANUJA: ?09/23/2023 History/ Indication: ?? Anomaly screen CPT-4: ??58659 / 68830 Transabdominal: Yes ?? Transvaginal: ??Yes Presentation: cephalic [...] 4.66 cm Approach: transvaginal Funneling: not present Fountain Attendant Comments: Incomplete anomaly screen. Fountain Attendant: ??Addi Solorzano RDMS (JUSTOWRITER OPERATOR) Images will be scanned into the record. [...] documented in this encounter Visit Diagnoses Diagnosis 20 weeks gestation of (HCC)- Primary state, incidental screening for malformation using ultrasonics ([facility]) Encounter for routine screening for malformation using ultrasonics Encounter for screening for cervical length ([facility]) 16 weeks gestation of ([facility]) state, incidental documented in this encounter Care Teams Splicer Helper Relationship Specialty Start Date End Date Gordon Mccullough MD PCP - General Family Medicine 08/08/21 documented as of this encounter
--- OUTSIDE RECORDS SUMMARY | 2024-06-17 07:43 | XMS_ITS | Encounter Summary ---
Author Organization [facility] Address [address] [facility] [place] [address] Care Team Providers Care Herb Counselor Name Role Phone Gordon Mccullough MD Primary Care Provider +1- [phone] Reason for Visit * Reason Comments Routine Visit Encounter Details Date Type Department Care Team (Late st Contact Info) Description 08/23/2023 11:40 AM CDT visit [facility] - OFFICE MACHINE SERVICER APPRENTICE [address] [place] [address], [address] [phone] Karin Pinto MD [address] [place] [phone] GA: [id number] Social History Tobacco Use Types Packs/Day Years Used Date Smoking Tobacco: Never Smokeless Tobacco: Never Tobacco Cessation:Counseling Given: Not Answered Alcohol Use Standard Drinks/Week Comments Not Currently 4 (1 standard drink = 0.6 oz pur e alcohol) PHQ-2 Answer Date Recorded Patient Health Questionnaire-2 Score 0 08/16/2023 Comments Yes Sex and Gender Information Value Date Recorded Sex Assigned at Female 08/04/2021 1:55 PM MACHINE OPERATOR TRANSPLANTER Gender Identity Female 08/04/2021 1:55 PM MACHINE OPERATOR TRANSPLANTER Sexual Orientation Not on file documented as of this encounter Last Filed Vital Signs Vital Sign Reading Time Taken Comments Blood Pressure 110/72 08/23/2023 11:50 AM CDT Pulse - - Temperature - - Respiratory Rate - - Oxygen Saturation - - Inhaled Oxygen Concentration - - Weight 85.7 kg (189 lb) 08/23/2023 11:50 AM CDT Height - - Body Mass Index 26.36 07/02/2023 9:20 AM MACHINE OPERATOR TRANSPLANTER documented in this encounter Progress Notes * Karin Pinto MD - 08/23/2023 12:19 PM CDT CC: Routine Care ?? Patient is doing well.??+FM.??Denies VB, LOF,??or significant cramping/ctx.??No new concerns.??Follow-up in??1??week for routine PNC. No GBS swab due to GBSuria in the 1st trimester. documented in this encounter Plan of Treatment Upcoming Encounters Date Type Department Care Team (Late st Contact Info) Description 07/21/2024 2:20 PM MACHINE OPERATOR TRANSPLANTER Office Visit [facility] - Internal Medicine [address] [place] [address] Gordon Mccullough MD [address] [place] [phone] documented as of this encounter Visit Diagnoses Diagnosis 35 weeks gestation of (HCC)- Primary state, incidental Anxiety in , antepartum (HCC) Mental disorders of mother, antepartum documented in this encounter Care Teams Herb Counselor Relationship Specialty Start Date End Date Gordon Mccullough MD PCP - General Family Medicine 08/08/21 documented as of this encounter
--- OUTSIDE RECORDS SUMMARY | 2024-06-17 07:43 | XMS_ITS | Encounter Summary ---
Author Organization [facility] Address [address] [place] [address] Care Team Providers Care Button Station Worker Name Role Phone Gordon Mccullough MD Primary Care Provider +1- [phone] Encounter Details Date Type Department Care Team (Latest Contact Info) Description 02/18/2023 Travel Social History Tobacco Use Types Packs/Day Years Used Date Smoking Tobacco: Never Smokeless Tobacco: Never Alcohol Use Standard Drinks/Week Comments Not Currently 4 (1 standard drink = 0.6 oz pur e alcohol) PHQ-2 Answer Date Recorded Patient Health Questionnaire-2 Score 0 02/11/2023 Comments Yes Sex and Gender Information Value Date Recorded Sex Assigned at Female 08/04/2021 1:55 PM SALES MANAGER [employer] Gender Identity Female 08/04/2021 1:55 PM SALES MANAGER [employer] Sexual Orientation Not on file documented as of this encounter Plan of Treatment Upcoming Encounters Date Type Department Care Team (Late st Contact Info) Description 07/21/2024 2:20 PM SALES MANAGER [employer] Office Visit [facility] Medical [facility] - Internal Medicine [address] [place] [address] Gordon Mccullough MD [address] [facility] [place] [phone] documented as of this encounter Visit Diagnoses Not on filedocumented in this encounter Care Teams Button Station Worker Relationship Specialty Start Date End Date Gordon Mccullough MD PCP - General Family Medicine 08/08/21 documented as of this encounter
--- OUTSIDE RECORDS SUMMARY | 2024-06-17 07:43 | XMS_ITS | Encounter Summary ---
Author Organization [facility] Address [address] [place] [address] Care Team Providers Care Educational Sign Language Interpreter Name Role Phone Godron Mccullough MD Primary Care Provider +1- [phone] Encounter Details Date Type Department Care Team (Latest Contact Info) Description 05/06/2023 Travel Social History Tobacco Use Types Packs/Day Years Used Date Smoking Tobacco: Never Smokeless Tobacco: Never Alcohol Use Standard Drinks/Week Comments Not Currently 4 (1 standard drink = 0.6 oz pur e alcohol) PHQ-2 Answer Date Recorded Patient Health Questionnaire-2 Score 0 05/03/2023 Comments Yes Sex and Gender Information Value Date Recorded Sex Assigned at Female 08/04/2021 1:55 PM TOPSTITCHER ZIGZAG Gender Identity Female 08/04/2021 1:55 PM TOPSTITCHER ZIGZAG Sexual Orientation Not on file documented as of this encounter Plan of Treatment Upcoming Encounters Date Type Department Care Team (Late st Contact Info) Description 07/21/2024 2:20 PM TOPSTITCHER ZIGZAG Office Visit [facility] Medical [facility] - Internal Medicine [address] [place] [address] Gordon Mccullough MD [address] [facility] [place] [phone] documented as of this encounter Visit Diagnoses Not on filedocumented in this encounter Care Teams Educational Sign Language Interpreter Relationship Specialty Start Date End Date Gordon Mccullough MD PCP - General Family Medicine 08/08/21 documented as of this encounter
--- OUTSIDE RECORDS SUMMARY | 2024-06-17 07:43 | XMS_ITS | Encounter Summary ---
Author Organization [facility] Address [address] [place] [address] Care Team Providers Care Panama Hat Smearer Name Role Phone Gordon Mccullough MD Primary Care Provider +1- [phone] Reason for Referral * (Routine) - Closed Specialty Diagnoses / Procedures Referred By Contac t Referred To Contact Diagnoses Encounter to determine viability of , not applicable or unspecified fetus (HCC) Missed period Encounter for supervision of normal in first trimester, unspecified (HCC) Procedures PA ULTRASND,PREG UTER,TRANSVAGIN Karin Pinto MD [address] [place] [phone] Referral ID Status Reason Start Date Expiration Date Visits Re quested Visits Authorized [id number] Closed 03/04/2023 03/03/2024 1 1 Reason for Visit * Reason Comments Ultrasound Encounter Details Date Type Department Care Team (Latest Contact Info) Description 03/04/2023 3:00 PM CDT OBGYN RADIOLOGY [facility] - STRAIGHT CUTTER [address] [place] [address], [address] [place] [phone] Encounter to determine viability of , not applicable or unspecified fetus (HCC) ; Missed period; Encounter for supervision of normal in first trimester, unspecified (HCC); Visit for confirmation of test result with physical exam Social History Tobacco Use Types Packs/Day Years Used Date Smoking Tobacco: Never Smokeless Tobacco: Never Alcohol Use Standard Drinks/Week Comments Not Currently 4 (1 standard drink = 0.6 oz pur e alcohol) PHQ-2 Answer Date Recorded Patient Health Questionnaire-2 Score 0 02/25/2023 Comments Yes Sex and Gender Information Value Date Recorded Sex Assigned at Female 08/04/2021 1:55 PM PRINT OPERATOR Gender Identity Female 08/04/2021 1:55 PM PRINT OPERATOR Sexual Orientation Not on file documented as of this encounter Procedure Notes * Jyoti Fofana - 03/04/2023 3:41 PM CDTAssociated Order(s): US OB LESS THAN 14 WEEKS [facility] [place] OB ULTRASOUND - FIRST TRIMESTER Patient Name: Tati Cm Study Date: 03/04/2023 , Age: 4 1990, 32 year old Pregnancies: BMI: 22.73 LMP: Patient's last menstrual period was 12/17/2022 (exact date). Latex allergy: No Gestational age by LMP: 11 wks 0 days Gestational age by today's US: 11 wks 2 days History/ Indication: dates/ viability CPT-4: 53528 Transabdominal: No Transvaginal: Yes Number of Fetuses: Single IUP Yolk Sac: seen Heart Motion: Yes Heart Rate: Visualized with movement CRL: 4.46 cm Uterine orientation: Retroverted Left Ovary: Length 2.07 cm Width 1.87 cm Height 1.59 cm Volume 3.223 cc Right Ovary: Length 3.10 cm Width 2.32 cm Height 2.06 cm Volume 7.757 cc ANUJA by LMP: 09/22/2022 ANUJA by today's US: 09/20/2022 Catalogue Illustrator Comments: There is a 1.1 x 1.4 x 1.1cm simple cyst on the right ovary. There is a 1.9 x 1.6 x 1.5cm right sided para-ovarian cyst. Catalogue Illustrator: Jyoti Fofana, RT(R), [facility] Images will be scanned into the record. Physician Interpretation: Single IUP measuring c/w LMP. +FHR. Right ovary with a small anechoic simple cyst. Small simple anechoic para-ovarian cyst as well suspicious for a paratubal cyst. Left ovary unremarkable. Interpreting Physician: Bao Pinto MD documented in this encounter Plan of Treatment Upcoming Encounters Date Type Department Care Team (Late st Contact Info) Description 07/21/2024 2:20 PM PRINT OPERATOR Office Visit [facility] - Internal Medicine [address] [facility] [place] [address] Gordon Mccullough MD [address] [facility] [place] [phone] documented as of this encounter Procedures Procedure Name Priority Date/Time Associated Diagnosis Comments US OB LESS THAN 14 WEEKS Routine 03/04/2023 3:41 PM CDT Visit for confirmation of test result with physical exam documented in this encounter Results * US OB LESS THAN 14 WEEKS (03/04/2023 3:41 PM CDT) Anatomical Region Laterality Modality Abdomen Ultrasound Narrative 03/04/2023 3:41 PM CDT Karin Pinto MD ? 03/04/2023 ??5:01 PM ? [facility] [place] OB ULTRASOUND - FIRST TRIMESTER Patient Name: Tati Cm Study Date: 03/04/2023 , Age: 4 1990, 32 year old Pregnancies: BMI: 22.73 LMP: Patient's last menstrual period was 12/17/2022 (exact date). Latex allergy: No Gestational age by LMP: 11 wks 0 days Gestational age by today's US: ?11 wks 2 days History/ Indication: ?? dates/ viability CPT-4: ??22262 Transabdominal: No ?? Transvaginal: ??Yes Number of [...] LMP: 09/22/2022 ANUJA by today's US: 09/20/2022 Catalogue Illustrator Comments: There is a 1.1 x 1.4 x 1.1cm simple cyst on the right ovary. There is a 1.9 x 1.6 x 1.5cm right sided para-ovarian cyst. Catalogue Illustrator: RT Samuel(R), [facility] Images will be scanned into the record. Physician Interpretation: Single IUP measuring c/w LMP. +FHR. Right ovary with a small anechoic simple cyst. Small simple anechoic para-ovarian cyst as well suspicious for a paratubal cyst. Left ovary unremarkable. Interpreting Physician: Bao Pinto MD Procedure Note Jyoti Fofana - 03/04/2023 3:41 PM CDT [facility] [place] OB ULTRASOUND - FIRST TRIMESTER Patient Name: Tati Cm Study Date: 03/04/2023 , Age: 4 1990, 32 year old Pregnancies: BMI: 22.73 LMP: Patient's last menstrual period was 12/17/2022 (exact date). Latex allergy: No Gestational age by LMP: 11 wks 0 days Gestational age by today's US: 11 wks 2 days History/ Indication: dates/ viability CPT-4: 87296 Transabdominal: No Transvaginal: Yes Number of Fetuses: Single IUP Yolk Sac: seen Heart Motion: Yes Heart Rate: Visualized with movement CRL: 4.46 cm Uterine orientation: Retroverted Left Ovary: Length 2.07 cm Width 1.87 cm Height 1.59 cm Volume 3.223 cc Right Ovary: Length 3.10 cm Width 2.32 cm Height 2.06 cm Volume 7.757 cc ANUJA by LMP: 09/22/2022 ANUJA by today's US: 09/20/2022 Catalogue Illustrator Comments: There is a 1.1 x 1.4 x 1.1cm simple cyst on the right ovary. There is a 1.9 x 1.6 x 1.5cm right sided para-ovariancyst. Catalogue Illustrator: Jyoti Fofana RT(R), [facility] Images will be scanned into the record. Physician Interpretation: Single IUP measuring c/w LMP. +FHR. Right ovarywith a small anechoic simple cyst. Small simple anechoic para-ovarian cystas well suspicious for a paratubal cyst. Left ovary unremarkable. Interpreting Physician: Bao Pinto MD Karin Pinto MD ORDERABLES documented in this encounter Visit Diagnoses Diagnosis Encounter to determine viability of , not applicable or unspecified fetus (HCC)- Primary Missed period Irregular menstrual cycle Encounter for supervision of normal in first trimester, unspecified (HCC) Visit for confirmation of test result with physical exam examination or test, unconfirmed documented in this encounter Care Teams Panama Hat Smearer Relationship Specialty Start Date End Date Gordon Mccullough MD PCP - General Family Medicine 08/08/21 documented as of this encounter
--- OUTSIDE RECORDS SUMMARY | 2024-06-17 07:43 | XMS_ITS | Encounter Summary ---
Author Organization [facility] Address [address] [place] [address] Care Team Providers Care Curling Machine Operator Name Role Phone Gordon Mccullough MD Primary Care Provider +1- [phone] Reason for Visit * Reason Comments Routine Visit Encounter Details Date Type Department Care Team (Late st Contact Info) Description 07/02/2023 9:20 AM WAD COMPRESSOR OPERATOR ADJUSTER visit [facility] Medical [facility] - FINNISH RUBBER [address] [place] [address], [address] [phone] Karin Pinto MD [address] [place] [phone] GA: 28w1d Social History Tobacco Use Types Packs/Day Years Used Date Smoking Tobacco: Never Smokeless Tobacco: Never Tobacco Cessation:Counseling Given: Not Answered Alcohol Use Standard Drinks/Week Comments Not Currently 4 (1 standard drink = 0.6 oz pur e alcohol) PHQ-2 Answer Date Recorded Patient Health Questionnaire-2 Score 0 05/03/2023 Comments Yes Sex and Gender Information Value Date Recorded Sex Assigned at Female 08/04/2021 1:55 PM WAD COMPRESSOR OPERATOR ADJUSTER Gender Identity Female 08/04/2021 1:55 PM WAD COMPRESSOR OPERATOR ADJUSTER Sexual Orientation Not on file documented as of this encounter Last Filed Vital Signs Vital Sign Reading Time Taken Comments Blood Pressure 116/72 07/02/2023 9:20 AM WAD COMPRESSOR OPERATOR ADJUSTER Pulse - - Temperature - - Respiratory Rate - - Oxygen Saturation - - Inhaled Oxygen Concentration - - Weight 81.6 kg (180 lb) 07/02/2023 9:20 AM WAD COMPRESSOR OPERATOR ADJUSTER Height 180.3 cm (5' 11 ) 07/02/2023 9:20 AM WAD COMPRESSOR OPERATOR ADJUSTER Body Mass Index 25.1 07/02/2023 9:20 AM WAD COMPRESSOR OPERATOR ADJUSTER documented in this encounter Progress Notes * Karin Pinto MD - 07/02/2023 9:37 AM CST CC: Routine Care ?? Patient is doing well. +FM.??Denies VB, LOF,??or significant cramping/ctx.??She passed her 1 hr GCTand CBC was unremarkable. Tdap administered. Follow-up in 2 weeks for routine PNC. COMPRESSOR OPERATOR ADJUSTER documented in this encounter Plan of Treatment Upcoming Encounters Date Type Department Care Team (Late st Contact Info) Description 07/21/2024 2:20 PM WAD COMPRESSOR OPERATOR ADJUSTER Office Visit [facility] - Internal Medicine [address] [place] [address] Gordon Mccullough MD [address] [place] [phone] documented as of this encounter Visit Diagnoses Diagnosis 28 weeks gestation of (HCC)- Primary state, incidental Anxiety in , antepartum (HCC) Mental disorders of mother, antepartum Need for Tdap vaccination Need for prophylactic vaccination with combined [id number] (DTP) vaccine documented in this encounter Care Teams Curling Machine Operator Relationship Specialty Start Date End Date Gordon Mccullough MD PCP - General Family Medicine 08/08/21 documented as of this encounter
--- OUTSIDE RECORDS SUMMARY | 2024-06-17 07:43 | XMS_ITS | Encounter Summary ---
Author Organization [facility] Address [address] [place] [address] Care Team Providers Care Help Desk Analyst Name Role Phone Gordon Mccullough MD Primary Care Provider +1- [phone] Reason for Referral * Radiology Services (Routine) - Closed Specialty Diagnoses / Procedures Referred By Contac t Referred To Contact Diagnoses Visit for confirmation of test result with physical exam Procedures US OB LESS THAN 14 WEEKS Karin Pinto MD [facility] [address] [address] Referral ID Status Reason Start Date Expiration Date Visits Re quested Visits Authorized [id number] Closed 02/18/2023 02/18/2024 1 1 Reason for Visit * Reason Comments MISSED PERIOD Encounter Details Date Type Department Care Team (Late st Contact Info) Description 02/18/2023 11:00 AM CDT Office Visit [facility] - BLASTING CLAY MINER [address] [place] [address], [address] [place] [phone] Karin Pinto MD [facility] [address] [address] Visit for confirmation of test result with physical exam (Primary Dx) Social History Tobacco Use Types Packs/Day Years Used Date Smoking Tobacco: Never Smokeless Tobacco: Never Alcohol Use Standard Drinks/Week Comments Not Currently 4 (1 standard drink = 0.6 oz pur e alcohol) PHQ-2 Answer Date Recorded Patient Health Questionnaire-2 Score 0 02/11/2023 Comments Yes Sex and Gender Information Value Date Recorded Sex Assigned at Female 08/04/2021 1:55 PM DEPUTY PROGRAM MANAGER Gender Identity Female 08/04/2021 1:55 PM DEPUTY PROGRAM MANAGER Sexual Orientation Not on file documented as of this encounter Last Filed Vital Signs Vital Sign Reading Time Taken Comments Blood Pressure 118/76 02/18/2023 11:08 AM CDT Pulse - - Temperature - - Respiratory Rate - - Oxygen Saturation - - Inhaled Oxygen Concentration - - Weight 73.9 kg (163 lb) 02/18/2023 11:08 AM CDT Height 180.3 cm (5' 11 ) 02/18/2023 11:08 AM CDT Body Mass Index 22.73 02/18/2023 11:08 AM CDT documented in this encounter Progress Notes * Karin Pinto MD - 02/18/2023 11:23 AM CDT Subjective: Tati Cm is being seen today for her first obstetrical visit. , LMP: Patient's lastmenstrual period was 12/17/2022 (exact date). She is at 9 and 0/7 weeks gestation. Her medical history is significant for anxiety/depression for which she takes Zoloft. She took Seroquel prior to mostly for sleep but has now switched to Unisom. Symptoms: Fatigue and nausea without emesis.Denies VB or significant cramping/ctx. history fully reviewed. OB History 1 Para 0 Term 0 0 AB 0 Living 0 SAB 0 IAB 0 Ectopic 0 Multiple 0 Live Births 0 Obstetric Comments No hx of abnormal PAP smears No hx of STIs Past Medical History: Diagnosis Date ??? Anxiety ??? Depression Past Surgical History: Procedure Laterality Date ??? Breast Augmentation 2010 Replacement 11/2022 Family History Problem Relation Name Age of Onset ??? Depression Mother ??? Cancer - Breast Neg Hx ??? Cancer - Uterine Neg Hx ??? Cancer - Ovarian Neg Hx ??? Cancer - Colon Neg Hx Current Outpatient Medications Medication Sig Dispense Refill ??? ferrous sulfate 325 (65 FE) MG tablet Take 1 (one) tablet by mouth daily with breakfast 30 tablet 11 ??? Vit-Fe Fumarate-FA ( plus) 27-1 MG tablet Take 1 (one) tablet by mouth once daily 30 tablet 11 ??? sertraline (Zoloft) 100 MG tablet Take 1.5 (one and one-half) tablets by mouth once daily No current facility-administered medications for this visit. [...] on file Housing Stability: Not on file A comprehensive review of systems was negative except as described in HPI. Objective: BP 118/76 (BP SITE: RIGHT ARM, BP POSITION: SITTING, BP CUFF SIZE: 11) Ht 1.803 m (5' 11 ) Wt 73.9 kg (163 lb) General: alert, cooperative, no distress Skin: Normal. and no rash or abnormalities Head: normocephalic, without trauma Neck: thyroid: not enlarged, symmetric, no tenderness/mass/nodules Lungs: clear to auscultation bilaterally Heart: regular rate and rhythm, S1, S2 normal, no murmur, click, rub or gallop Abdomen: Abdomen soft, non-tender. Pelvis: Vulva and vagina appear normal. Cervix appears normal. Bimanual exam reveals normal uterus and adnexa. Extremities: extremities normal, atraumatic, no cyanosis or edema Neurologic: negative Assessment: 9 and 0/7 weeks ANUJA 09/23/2023 Plan: Initial labs drawn. vitamin and Fe ordered. packet reviewed. Genetic testing discussed: Patient desires NIPT. Will collected at next visit. Role of ultrasound in discussed; survey: requests Discussed safe medications in . Many psychiatric medications are category C, including Zoloft. This means animal studies have shown an adverse effect on the fetus but there are no adequate studies in humans to definitively assess safety, however benefits may warrant use of the medication despite risks. Per ACOG, maternal psychiatric illness, if inadequately treated or untreated, may result in poor compliance with care, inadequate nutrition, exposure to additional medication or herbal remedies, increased alcohol and tobacco use, deficits in mother- bonding, and disruptions within the family environment. Recommended reduction of medication as tolerated especially in the first trimester. Patient stated understanding and agreement. Follow-up in 1-2 weeks. Orders Placed This Encounter ??? US OB LESS THAN 14 WEEKS Standing Status: Future Standing Expiration Date: 02/19/2024 Order Specific Question: Release to patient Answer: Immediate Order Specific Question: Exam to be performed? Answer: Per Radiologist protocol ??? OBSTETRIC PANEL RFLX CONFIRM (WO CT/GC/UA) Order Specific Question: Release to patient Answer: Immediate ??? URINALYSIS AUTO - POINT OF CARE Order Specific Question: Release to patient Answer: Immediate ??? Vit-Fe Fumarate-FA ( plus) 27-1 MG tablet Sig: Take 1 (one) tablet by mouth once daily Dispense: 30 tablet Refill: 11 ??? ferrous sulfate 325 (65 FE) MG tablet Sig: Take 1 (one) tablet by mouth daily with breakfast Dispense: 30 tablet Refill: 11 documented in this encounter Plan of Treatment Upcoming Encounters Date Type Department Care Team (Late st Contact Info) Description 07/21/2024 2:20 PM DEPUTY PROGRAM MANAGER Office Visit [facility] Medical [facility] - Internal Medicine [address] [facility] [place] [address] Gordon Mccullough MD [address] [facility] [place] [address] documented as of this encounter Procedures Procedure Name Priority Date/Time Associated Diagnosis Comments URINALYSIS AUTO - POINT OF CARE Routine 02/18/2023 2:50 PM CDT Visit for confirmation of test result with physical exam OBSTETRIC PANEL RFLX CONFIRM (WO CT/GC/UA) Routine 02/18/2023 11:48 AM CDT Visit for confirmation of test result with physical exam RESULT REFLEXED Routine 02/18/2023 11:48 AM CDT Visit for confirmation of test result with physical exam INTERPRETATION REFLEXED Routine 02/18/2023 11:48 AM CDT Visit for confirmation of test result with physical exam documented in this encounter Results * US OB LESS THAN 14 WEEKS (03/04/2023 3:41 PM CDT) Anatomical Region Laterality Modality Abdomen Ultrasound Narrative 03/04/2023 3:41 PM CDT Karin Pinto MD ? 03/04/2023 ??5:01 PM ? [facility] BLASTING CLAY MINER [place] OB ULTRASOUND - FIRST TRIMESTER Patient Name: Tati Cm Study Date: 03/04/2023 , Age: 4 1990, 32 year old Pregnancies: BMI: 22.73 LMP: Patient's last menstrual period was 12/17/2022 (exact date). Latex allergy: No Gestational age by LMP: 11 wks 0 days Gestational age by today's US: ?11 wks 2 days History/ Indication: ?? dates/ viability CPT-4: ??58715 Transabdominal: No ?? Transvaginal: ??Yes Number of [...] LMP: 09/22/2022 ANUJA by today's US: 09/20/2022 Product Advisor Comments: There is a 1.1 x 1.4 x 1.1cm simple cyst on the right ovary. There is a 1.9 x 1.6 x 1.5cm right sided para-ovarian cyst. Product Advisor: RT Samuel(R), RDMS Images will be scanned into the record. Physician Interpretation: Single IUP measuring c/w LMP. +FHR. Right ovary with a small anechoic simple cyst. Small simple anechoic para-ovarian cyst as well suspicious for a paratubal cyst. Left ovary unremarkable. Interpreting Physician: Bao Pinto MD Procedure Note Jyoti Fofana - 03/04/2023 3:41 PM CDT [facility] BLASTING CLAY MINER [place] OB ULTRASOUND - FIRST TRIMESTER Patient Name: Tati Cm Study Date: 03/04/2023 , Age: 4 1990, 32 year old Pregnancies: BMI: 22.73 LMP: Patient's last menstrual period was 12/17/2022 (exact date). Latex allergy: No Gestational age by LMP: 11 wks 0 days Gestational age by today's US: 11 wks 2 days History/ Indication: dates/ viability CPT-4: 82708 Transabdominal: No Transvaginal: Yes Number of Fetuses: Single IUP Yolk Sac: seen Heart Motion: Yes Heart Rate: Visualized with movement CRL: 4.46 cm Uterine orientation: Retroverted Left Ovary: Length 2.07 cm Width 1.87 cm Height 1.59 cm Volume 3.223 cc Right Ovary: Length 3.10 cm Width 2.32 cm Height 2.06 cm Volume 7.757 cc ANUJA by LMP: 09/22/2022 ANUJA by today's US: 09/20/2022 Product Advisor Comments: There is a 1.1 x 1.4 x 1.1cm simple cyst on the right ovary. There is a 1.9 x 1.6 x 1.5cm right sided para-ovariancyst. Product Advisor: RT Samuel(R), RDMS Images will be scanned into the record. Physician Interpretation: Single IUP measuring c/w LMP. +FHR. Right ovarywith a small anechoic simple cyst. Small simple anechoic para-ovarian cystas well suspicious for a paratubal cyst. Left ovary unremarkable. Interpreting Physician: Bao Pnito MD Karin Pinto MD US ORDERABLES * [...] neg Negative [facility] Specific [place] UA POCT 1.015 1.002 - 1.030 [facility] Ketone UA neg Negative [facility] Bilirubin UA POCT neg Negative [facility] Glucose UA neg Negative [facility] Urine URINE / Unknown 02/18/2023 2 :50 PM CDT Karin Pinto MD LAB - POINT OF CA RE ORDERABLES [facility] [address], [address] [place] [address], [facility] [phone] * (ABNORMAL) RESULT REFLEXED (02/18/2023 11:48 AM [...] Agency Comment Lab Testing performed at: [facility] [place] [address] [facility] ??[facility] [phone] Karin Pinto MD LAB - CHEMISTRY O RDERABLES Performing Organization Address [facility] Co de Phone Number [facility] ACCOUNT BILL [address] [place] [address] * INTERPRETATION REFLEXED (02/18/2023 11:48 AM CDT) Interpretation [facility] ACCOUNT BILL Comment: Not infected with HCV unless early or acute infection is suspected (which may be delayed in an immunocompromised individual), or other evidence exists to indicate HCV infection. 02/18/2023 11:4 8 AM CDT 02/18/2023 Narrative Resulting Agency Comment Lab Testing performed at: [facility] [address] ??[facility] [phone] Karin Pinto MD LAB - SEROLOGY OR DERABLES Performing Organization Address [facility] de Phone Number [facility] ACCOUNT BILL [address] [place] [address] * (ABNORMAL) OBSTETRIC PANEL RFLX CONFIRM (WO [...] Resulting Agency Comment Lab Testing performed at: [facility] [place] [address] [facility] ??[facility] [phone] Karin Pinto MD LAB - CHEMISTRY O RDERABLES [facility] ACCOUNT BILL [address] [place] [address] documented in this encounter Visit Diagnoses Diagnosis Visit for confirmation of test result with physical exam- Primary examination or test, unconfirmed Encounter to determine viability of , not applicable or unspecified fetus (HCC)- Primary Missed period Irregular menstrual cycle Encounter for supervision of normal in first trimester, unspecified (HCC) Visit for confirmation of test result with physical exam examination or test, unconfirmed documented in this encounter Care Teams Help Desk Analyst Relationship Specialty Start Date End Date Gordon Mccullough MD PCP - General Family Medicine 08/08/21 documented as of this encounter
--- OUTSIDE RECORDS SUMMARY | 2024-06-17 07:43 | XMS_ITS | Encounter Summary ---
Author Organization [facility] Address [address] [place] [address] Care Team Providers Care Gameplay Engineer Name Role Phone Gordon Mccullough MD Primary Care Provider +1- [phone] Encounter Details Date Type Department Care Team (Latest Contact Info) Description 08/23/2023 Travel Social History Tobacco Use Types Packs/Day Years Used Date Smoking Tobacco: Never Smokeless Tobacco: Never Alcohol Use Standard Drinks/Week Comments Not Currently 4 (1 standard drink = 0.6 oz pur e alcohol) PHQ-2 Answer Date Recorded Patient Health Questionnaire-2 Score 0 08/16/2023 Comments Yes Sex and Gender Information Value Date Recorded Sex Assigned at Female 08/04/2021 1:55 PM SHIP SURVEYOR Gender Identity Female 08/04/2021 1:55 PM SHIP SURVEYOR Sexual Orientation Not on file documented as of this encounter Plan of Treatment Upcoming Encounters Date Type Department Care Team (Late st Contact Info) Description 07/21/2024 2:20 PM SHIP SURVEYOR Office Visit [facility] Medical [facility] - Internal Medicine [address] [place] [address] Gordon Mccullough MD [address] [facility] [place] [id number] documented as of this encounter Visit Diagnoses Not on filedocumented in this encounter Care Teams Gameplay Engineer Relationship Specialty Start Date End Date Gordon Mccullough MD PCP - General Family Medicine 08/08/21 documented as of this encounter
--- OUTSIDE RECORDS SUMMARY | 2024-06-17 07:43 | XMS_ITS | Encounter Summary ---
Author Organization [facility] Address [address] [facility] [place] [address] Care Team Providers Care Harness Builder Name Role Phone Gordon Mccullough MD Primary Care Provider +1- [phone] Reason for Referral * Radiology Services (Routine) - Closed Specialty Diagnoses / Procedures Referred By Contac t Referred To Contact Diagnoses screening for malformation using ultrasonics (HCC) Procedures US OB FOLLOWUP Karin Pinto MD [facility] [address] [address] Referral ID Status Reason Start Date Expiration Date Visits Re quested Visits Authorized [id number] Closed 05/06/2023 05/05/2024 1 1 DER OPERATOR Reason for Visit * Reason Comments Routine Visit Encounter Details Date Type Department Care Team (Late st Contact Info) Description 05/06/2023 9:40 AM SKIDDER OPERATOR visit [facility] - HORTICULTURAL WORKER [address] [place] [address], [address] [place] [phone] Karin Pinto MD [facility] [address] [address] [place]: [id number] Social History Tobacco Use Types Packs/Day Years Used Date Smoking Tobacco: Never Smokeless Tobacco: Never Tobacco Cessation:Counseling Given: Not Answered Alcohol Use Standard Drinks/Week Comments Not Currently 4 (1 standard drink = 0.6 oz pur e alcohol) PHQ-2 Answer Date Recorded Patient Health Questionnaire-2 Score 0 05/03/2023 Comments Yes Sex and Gender Information Value Date Recorded Sex Assigned at Female 08/04/2021 1:55 PM SKIDDER OPERATOR Gender Identity Female 08/04/2021 1:55 PM SKIDDER OPERATOR Sexual Orientation Not on file documented as of this encounter Last Filed Vital Signs Vital Sign Reading Time Taken Comments Blood Pressure 124/80 05/06/2023 9:30 AM SKIDDER OPERATOR Pulse - - Temperature - - Respiratory Rate - - Oxygen Saturation - - Inhaled Oxygen Concentration - - Weight 77.6 kg (171 lb) 05/06/2023 9:30 AM SKIDDER OPERATOR Height 180.3 cm (5' 11 ) 05/06/2023 9:30 AM SKIDDER OPERATOR Body Mass Index 23.85 05/06/2023 9:30 AM SKIDDER OPERATOR documented in this encounter Progress Notes * Karin Pinto MD - 05/06/2023 9:39 AM CST CC: Routine Care ?? Patient is doing well. She has begun to feel flutters of FM. Denies VB, LOF, or significant cramping/ctx.??Anatomy scan today revealed EFW AGA at 63.3%ile. Profile view and 4 chamber heart views not adequately visualized, otherwise no sonographic signs of abnormality. Follow-up in 4 weeks forroutine PNC and completion of anatomy scan. 1 hr GCT/CBC at that time as well. DER OPERATOR documented in this encounter Plan of Treatment Upcoming Encounters Date Type Department Care Team (Late st Contact Info) Description 07/21/2024 2:20 PM SKIDDER OPERATOR Office Visit [facility] - Internal Medicine [address] [facility] [place] [address] Gordon Mccullough MD [address] [facility] [place] [address] documented as of this encounter Procedures Procedure Name Priority Date/Time Associated Diagnosis Comments CBC W AUTO DIFFERENTIAL Routine 06/04/2023 10:07 AM SKIDDER OPERATOR 20 weeks gestation of (HCC) GLUCOSE CHALLENGE Routine 06/04/2023 10: 07 AM SKIDDER OPERATOR 20 weeks gestation of (HCC) documented in this encounter Results * CBC WITH DIFFERENTIAL (06/04/2023 10:07 AM SKIDDER OPERATOR) WBC 7.0 3.4 - 10.8 x10E3/uL [facility] ACCOUNT BILL RBC 3.94 3.77 - 5.28 x10E6/uL [facility] ACCOUNT BILL Hemoglobin 12.5 11.1 - 15.9 g/dL [facility] ACCOUNT BILL Hematocrit 36.1 34.0 - 46.6 % [facility] ACCOUNT BILL MCV 92 79 - 97 fL [facility] ACCOUNT BILL MCH 31.7 26.6 - 33.0 pg [facility] ACCOUNT BILL MCHC 34.6 31.5 - 35.7 g/dL [facility] ACCOUNT BILL RDW 11.8 11.7 - 15.4 % [facility] ACCOUNT BILL Platelet Count 226 150 - 450 x10E3/uL [facility] ACCOUNT BILL Granulocytes % 63 Not Estab. % [facility] ACCOUNT BILL Lymphocytes % 30 Not Estab. % [facility] ACCOUNT BILL Monocytes % 7 Not Estab. % [facility] ACCOUNT BILL Eosinophils % 0 Not Estab. % [facility] ACCOUNT BILL Basophils % 0 Not Estab. % [facility] ACCOUNT BILL Immature Cells NOT AVAILABLE [facility] ACCOUNT BILL Comment:Result cannot be obt ained for this observation. Granulocytes Absolute 4.3 1.4 - 7.0 x10E3/uL [facility] ACCOUNT BILL Lymphocytes Absolute 2.1 0.7 - 3.1 x10E3/uL [facility] ACCOUNT BILL Monocytes Absolute 0.5 0.1 - 0.9 x10E3/uL [facility] ACCOUNT BILL Eosinophils Absolute 0.0 0.0 - 0.4 x10E3/uL [facility] ACCOUNT BILL Basophils Absolute 0.0 0.0 - 0.2 x10E3/uL [facility] ACCOUNT BILL Immature Granulocytes 0 Not Estab. % [facility] ACCOUNT BILL Immature Granulocytes Absolute 0.0 0.0 - 0.1 x10E3/uL [facility] ACCOUNT BILL nRBC NOT AVAILABLE [facility] ACCOUNT BILL Comment:Result cannot be obt ained for this observation. Comment Hematology NOT AVAILABLE [facility] ACCOUNT BILL Comment: FASTING Result cannot be obtained for this observation. Blood BLOOD SPECIMEN / Unknown 06/04/2023 10:07 AM SKIDDER OPERATOR 06/04/2023 Narrative Resulting Agency Comment Lab Testing performed at: [facility] [address] ??[facility] [phone] Karin Pinto MD LAB - HEMATOLOGY ORDERABLES Performing Organization Address [facility] Co de Phone Number [facility] ACCOUNT BILL [address] [place] [address] * GLUCOSE CHALLENGE (06/04/2023 10:07 AM SKIDDER OPERATOR) GTT 1Hr 92 70 - 139 mg/dL [facility] ACCOUNT BILL Comment: According to ADA, a glucose threshold of >139 mg/dL after 50-gram load identifies approximately 80% of women with gestational diabetes mellitus, while the sensitivity is further increased to approximately 90% by a threshold of >129 mg/dL. FASTING Blood BLOOD SPECIMEN / Unknown 06/04/2023 10:07 AM SKIDDER OPERATOR 06/04/2023 Narrative Resulting Agency Comment Lab Testing performed at: [facility] [address] ??[facility] access hospital [phone] Karin Pinto MD LAB - CHEMISTRY O RDERABLES Performing Organization Address [facility] Co de Phone Number [facility] ACCOUNT BILL [address] [place] [address] * US OB FOLLOWUP (06/04/2023 8:57 AM SKIDDER OPERATOR) Anatomical Region Laterality Modality Abdomen, Pelvis Ultrasound Narrative 06/04/2023 8:57 AM SKIDDER OPERATOR Karin Pinto MD ? 06/04/2023 ??9:10 AM ? [facility] [place] OB ULTRASOUND - LIMITED Patient Name: Tati Cm Study Date: 06/04/2023 , Age: 4 1990, 32 year old Pregnancies: BMI: 23.85 LMP: Patient's last menstrual period was 12/17/2022 (exact date). Gestational age by ANUJA: 24 wks 1 days History/ Indication: ?? Complete anomaly screen CPT-4: ??09946 Presentation: breech Placenta: posterior Heart Rate: 143 bpm Amniotic Fluid: normal City Dispatcher Comments: Profile and 4CH were visualized. Anomaly screen is complete. City Dispatcher: ??RT Hardy (R), NATHALIA Images will be scanned into report. Physician Interpretation: Profile and 4-chamber heart views adequately visualized, completing the patient's anatomy scan. Interpreting Physician: Bao Pinto MD Procedure Note Anirudh Candelaria, RDMS - 06/04/2023 8:57 AM CST [facility] HORTICULTURAL WORKER [place] OB ULTRASOUND - LIMITED Patient Name: Tati Cm Study Date: 06/04/2023 , Age: 4 1990, 32 year old Pregnancies: BMI: 23.85 LMP: Patient's last menstrual period was 12/17/2022 (exact date). Gestational age by ANUJA: 24 wks 1 days History/ Indication: Complete anomaly screen CPT-4: 80222 Presentation: breech Placenta: posterior Heart Rate: 143 bpm Amniotic Fluid: normal City Dispatcher Comments: Profile and 4CH were visualized. Anomaly screen iscomplete. City Dispatcher: RT Hardy (Charlene)NATHALIA Images will be scanned into report. Physician Interpretation: Profile and 4-chamber heart views adequatelyvisualized, completing the patient's anatomy scan. Interpreting Physician: Boa Pinto MD Karin Pinto MD US ORDERABLES documented in this encounter Visit Diagnoses Diagnosis 20 weeks gestation of (HCC)- Primary state, incidental Anxiety in , antepartum (HCC) Mental disorders of mother, antepartum screening for malformation using ultrasonics (HCC) Encounter for routine screening for malformation using ultrasonics Encounter for follow-up ultrasound of anatomy (HCC)- Primary screening for malformation using ultrasonics (HCC) Encounter for routine screening for malformation using ultrasonics documented in this encounter Care Teams Harness Builder Relationship Specialty Start Date End Date Gordon Mccullough MD PCP - General Family Medicine 08/08/21 documented as of this encounter
--- OUTSIDE RECORDS SUMMARY | 2024-06-17 07:43 | XMS_ITS | Encounter Summary ---
Author Organization [facility] Address [address] [place] [address] Care Team Providers Care Industrial Hygiene Engineer Name Role Phone Gordon Mccullough MD Primary Care Provider +1- [phone] Reason for Visit * Reason Comments Routine Visit Encounter Details Date Type Department Care Team (Late st Contact Info) Description 06/04/2023 9:20 AM GROUP HOME PARAPROFESSIONAL visit [facility] Medical [facility] - STENOTYPIST [address] [place] [address], [address] [phone] Karin Pinto MD [address] [place] [phone] [place]: [id number] Social History Tobacco Use Types Packs/Day Years Used Date Smoking Tobacco: Never Smokeless Tobacco: Never Tobacco Cessation:Counseling Given: Not Answered Alcohol Use Standard Drinks/Week Comments Not Currently 4 (1 standard drink = 0.6 oz pur e alcohol) PHQ-2 Answer Date Recorded Patient Health Questionnaire-2 Score 0 05/03/2023 Comments Yes Sex and Gender Information Value Date Recorded Sex Assigned at Female 08/04/2021 1:55 PM GROUP HOME PARAPROFESSIONAL Gender Identity Female 08/04/2021 1:55 PM GROUP HOME PARAPROFESSIONAL Sexual Orientation Not on file documented as of this encounter Last Filed Vital Signs Vital Sign Reading Time Taken Comments Blood Pressure 124/78 06/04/2023 9:03 AM GROUP HOME PARAPROFESSIONAL Pulse - - Temperature - - Respiratory Rate - - Oxygen Saturation - - Inhaled Oxygen Concentration - - Weight 80.3 kg (177 lb) 06/04/2023 9:03 AM GROUP HOME PARAPROFESSIONAL Height 180.3 cm (5' 11 ) 06/04/2023 9:03 AM GROUP HOME PARAPROFESSIONAL Body Mass Index 24.69 06/04/2023 9:03 AM GROUP HOME PARAPROFESSIONAL documented in this encounter Progress Notes * Karin Pinto MD - 06/04/2023 9:07 AM CST CC: Routine Care ?? Patient is doing well. +FM. Denies VB, LOF, or significant cramping/ctx.??No new concerns. Follow-up ultrasound today with adequate visualization of the profile and 4-chamber heart views, completing her anatomy scan. 1 hr GCT and CBC today. Follow-up in 4 weeks for routine PNC??and Tdap vaccine. P HOME PARAPROFESSIONAL documented in this encounter Plan of Treatment Upcoming Encounters Date Type Department Care Team (Late st Contact Info) Description 07/21/2024 2:20 PM GROUP HOME PARAPROFESSIONAL Office Visit [facility] - Internal Medicine [address] [place] [address] Gordon Mccullough MD [address] [place] [address] documented as of this encounter Visit Diagnoses Diagnosis 24 weeks gestation of (HCC)- Primary state, incidental Anxiety in , antepartum (HCC) Mental disorders of mother, antepartum documented in this encounter Care Teams Industrial Hygiene Engineer Relationship Specialty Start Date End Date Gordon Mccullough MD PCP - General Family Medicine 08/08/21 documented as of this encounter
--- OUTSIDE RECORDS SUMMARY | 2024-06-17 07:43 | XMS_ITS | Encounter Summary ---
Author Organization [facility] Address [address] [place] [address] Care Team Providers Care Skein Inspector Name Role Phone Gordon Mccullough MD Primary Care Provider [phone]- [phone] Reason for Visit * Reason Onset Date Comments Results 09/14/2021 Encounter Details Date Type Department Care Team (Late st Contact Info) Description 09/14/[address] [facility] - CONTRACT MANAGER [address] [place] [address], [address] [phone] Karin Pinto MD [address] [place] [phone] Results Social History Tobacco Use Types Packs/Day Years Used Date Smoking Tobacco: Never Smokeless Tobacco: Never Alcohol Use Standard Drinks/Week Comments Yes 4 (1 standard drink = 0.6 oz pur e alcohol) PHQ-2 Answer Date Recorded PHQ2 TOTAL SCORE 1 08/08/2021 Sex and Gender Information Value Date Recorded Sex Assigned at Female 08/04/2021 1:55 PM RESPIRATORY SCIENTIST Gender Identity Female 08/04/2021 1:55 PM RESPIRATORY SCIENTIST Sexual Orientation Not on file documented as of this encounter Miscellaneous Notes * Telephone Encounter - Karin Pinto MD - 09/14/2021 2:38 PM CDT Attempted to call patient with PAP smear results. Patient unavailable. Message left on answering machine for her to call the office. PAP smear with LSIL but no HPV. LSIL is a low-grade abnormality that will often resolve on its own,however 0.1% may progress to cervical cancer after 2 years. Since the HPV virus was not present, I recommend close monitoring with a repeat PAP smear in 1 year. documented in this encounter Plan of Treatment Upcoming Encounters Date Type Department Care Team (Late st Contact Info) Description 07/21/2024 2:20 PM RESPIRATORY SCIENTIST Office Visit [facility] - Internal Medicine [address] [place] [address] Gordon Mccullough MD [address] [place] [phone] documented as of this encounter Visit Diagnoses Not on filedocumented in this encounter Care Teams Skein Inspector Relationship Specialty Start Date End Date Gordon Mccullough MD PCP - General Family Medicine 08/08/21 documented as of this encounter
--- OUTSIDE RECORDS SUMMARY | 2024-06-17 07:43 | XMS_ITS | Encounter Summary ---
Author Organization [facility] Address [address] [place] [address] Care Team Providers Care Relish Blender Name Role Phone Gordon Mccullough MD Primary Care Provider +1- [phone] Reason for Visit * Reason Comments Routine Visit Encounter Details Date Type Department Care Team (Late st Contact Info) Description 08/08/2023 10:40 AM BACON SKINNER visit [facility] Medical [facility] - OVERHEAD FOREMAN [address] [place] [address], [address] [phone] Karin Pinto MD [address] [place] [phone] [place]: [id number] Social History Tobacco Use Types Packs/Day Years Used Date Smoking Tobacco: Never Smokeless Tobacco: Never Tobacco Cessation:Counseling Given: Not Answered Alcohol Use Standard Drinks/Week Comments Not Currently 4 (1 standard drink = 0.6 oz pur e alcohol) PHQ-2 Answer Date Recorded Patient Health Questionnaire-2 Score 0 08/03/2023 Comments Yes Sex and Gender Information Value Date Recorded Sex Assigned at Female 08/04/2021 1:55 PM BACON SKINNER Gender Identity Female 08/04/2021 1:55 PM BACON SKINNER Sexual Orientation Not on file documented as of this encounter Last Filed Vital Signs Vital Sign Reading Time Taken Comments Blood Pressure 120/76 08/08/2023 10:38 AM BACON SKINNER Pulse - - Temperature - - Respiratory Rate - - Oxygen Saturation - - Inhaled Oxygen Concentration - - Weight 83.8 kg (184 lb 12.8 oz) 024 10:38 AM BACON SKINNER Height - - Body Mass Index 25.77 07/02/2023 9:20 AM BACON SKINNER documented in this encounter Progress Notes * Karin Pinto MD - 08/08/2023 10:50 AM CST CC: Routine Care ?? Patient is doing well.??+FM.??Denies VB, LOF,??or significant cramping/ctx. No new concerns.??Follow-up in??2??weeks for routine PNC. N SKINNER documented in this encounter Plan of Treatment Upcoming Encounters Date Type Department Care Team (Late st Contact Info) Description 07/21/2024 2:20 PM BACON SKINNER Office Visit [facility] Medical [facility] - Internal Medicine [address] [place] [address] Gordon Mccullough MD [address] [place] [phone] documented as of this encounter Visit Diagnoses Diagnosis 33 weeks gestation of (HCC)- Primary state, incidental Anxiety in , antepartum (HCC) Mental disorders of mother, antepartum documented in this encounter Care Teams Relish Blender Relationship Specialty Start Date End Date Gordon Mccullough MD PCP - General Family Medicine 08/08/21 documented as of this encounter
--- OUTSIDE RECORDS SUMMARY | 2024-06-17 07:43 | XMS_ITS | Encounter Summary ---
Author Organization [facility] Address [address] [facility] [place] [address] Care Team Providers Care Signal Wirer Name Role Phone Gordon Mccullough MD Primary Care Provider +1- [phone] Reason for Visit * Reason Comments Establish Care Well Women Exam Encounter Details Date Type Department Care Team (Late st Contact Info) Description 09/07/2021 10:00 AM CDT Office Visit [facility] Medical [facility] - WIRE MILL ROVER [address] [place] [address], [address] [place] [phone] Karin Pinto MD [address] [place] [phone] Well woman exam with routine gynecological exam (Primary Dx); Pap smear for cervical cancer screening Social History Tobacco Use Types Packs/Day Years Used Date Smoking Tobacco: Never Smokeless Tobacco: Never Alcohol Use Standard Drinks/Week Comments Yes 4 (1 standard drink = 0.6 oz pur e alcohol) PHQ-2 Answer Date Recorded PHQ2 TOTAL SCORE 1 08/08/2021 Sex and Gender Information Value Date Recorded Sex Assigned at Female 08/04/2021 1:55 PM FRAMER Gender Identity Female 08/04/2021 1:55 PM FRAMER Sexual Orientation Not on file documented as of this encounter Last Filed Vital Signs Vital Sign Reading Time Taken Comments Blood Pressure 122/83 09/07/2021 10:08 AM CDT Pulse - - Temperature - - Respiratory Rate - - Oxygen Saturation - - Inhaled Oxygen Concentration - - Weight 71.2 kg (157 lb) 09/07/2021 10:08 AM CDT Height - - Body Mass Index 21.9 08/08/2021 9:43 AM FRAMER documented in this encounter Progress Notes * Karin Pinto MD - 09/07/2021 10:41 AM CDT HISTORY: CC: Chief Complaint Patient presents with ??? Establish Care ??? Well Women Exam Tati Love is a 30 year old white female, No LMP recorded (lmp unknown). Patient has had an implant., here for a Well Woman exam. 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 Past HEALTH BENEFITS SPECIALIST History: Last Pap: 10/2018 normal History of cervical dysplasia: none STDs: none Menses: amenorrheic since IUD placed Contraception: Mirena IUD placed 10/2018 History Sexual Activity: Social History Substance and Sexual Activity Sexual Activity Yes ??? Partners: Male ??? control/protection: I.U.D. Comment: Mirena IUD placed 10/2018 Past OB History OB History Para Term AB Living 0 0 0 0 0 0 SAB IAB Ectopic Multiple Live Births 0 0 0 0 0 Obstetric Comments No hx of abnormal PAP smears No hx of STIs Other pertinent history: I have reviewed the past medical and surgical history, social history, family history, problem list, allergies and medication lists. Outpatient Medications Marked as Taking for the 09/07/21 encounter (Office Visit) with Karin Pinto MD Medication Sig Dispense Refill ??? escitalopram (LEXAPRO) 20 MG tablet Take 1 (one) tablet by mouth once daily 90 tablet 0 ??? levonorgestrel (MIRENA) 20 MCG/24HR IUD 1 Each by Intrauterine route once ??? propranolol (INDERAL) 10 MG tablet Take 1 (one) tablet by mouth 3 times daily as needed (anxiety) 30 tablet 1 ??? traZODone (DESYREL) 100 MG tablet Take 1 (one) tablet by mouth nightly as needed 90 tablet 0 Review of Systems A comprehensive review of systems was negative except as described in HPI. EXAMINATION Body mass index is 21.9 kg/m??. BP 122/83 Wt 157 lb BMI 21.9 kg/m2 General Appearance: alert, cooperative, no distress Neck: No masses, thyroid not enlarged. Breasts: symmetric, nontender, no masses or discharge Lungs: breath sounds normal and symmetric; no rales or wheezes Heart: regular rhythm, normal S1 and S2, without murmurs, gallops or rubs Abdomen: soft without mass, non-tender External genitalia: normal general appearance Urinary system: urethral meatus normal Vaginal: normal mucosa without prolapse or lesions, normal without tenderness, induration or massesand normal rugae Cervix: normal appearance, moderate clear cervical mucus, IUD string appropriately placed Adnexa: normal bimanual exam Uterus: normal single, anteverted and tilted to the patient's right, nontender Extremities: no clubbing, cyanosis or edema ASSESSMENT Normal healthy adult female. ICD-10-CM 1. Well woman exam with routine gynecological exam Z01.419 2. Pap smear for cervical cancer screening Z12.4 PAP CERVICAL CANCER SCREEN APT Patient Active Problem List Diagnosis Date Noted ??? Anxiety 07/01/2019 Priority: Not Prioritized PLAN PAP smear collected. Breast awareness reviewed. Gardisil was discussed. Patient has previously received. Safe sex and contraception were discussed. Mirena IUD placed 10/2018. Follow-up in 1 year for next WWE. Orders Placed This Encounter ??? PAP CERVICAL CANCER SCREEN APT Order Specific Question: Release to patient Answer: Immediate Order Specific Question: Pap Source? Answer: Cervical Order Specific Question: Collection Method? Answer: [place]-Spatula documented in this encounter Plan of Treatment Upcoming Encounters Date Type Department Care Team (Late st Contact Info) Description 07/21/2024 2:20 PM FRAMER Office Visit [facility] - Internal Medicine [address] [place] [address] Gordon Mccullough MD [address] [place] [phone] documented as of this encounter Procedures Procedure Name Priority Date/Time Associated Diagnosis Comments PAP CERVICAL CANCER SCREEN APT Routine 09/07/2021 10:55 AM CDT Pap smear for cervical cancer screening PAP IG LB +HPV APTIMA REFLEX 16,18/45 Routine 09/07/2021 12:00 AM CDT Pap smear for cervical cancer screening documented in this encounter Results * PAP CERVICAL CANCER SCREEN APT (09/07/2021 10:55 AM CDT) Age Gdln ACOG Testing 30-65 [facility] ACCOUNT BILL PART OF UTERINE CERVIX / Unknown 09/07/2021 10:55 AM CDT 09/08/2021 Narrative [facility] ACCOUNT BILL - 09/14/2021 3:08 PM CDT No. of containers..01 ThinPrep Vial Resulting Agency Comment Lab Testing performed at: [facility] ??[place] [id number] Karin Pinto MD LAB - PATHOLOGY/C YTOLOGY ORDERABLES [facility] ACCOUNT BILL [address] [place] [address] * (ABNORMAL) PAP IG LB +HPV APTIMA [...] Resulting Agency Comment Lab Testing performed at: [address] ??[place] [id number] Karin Pinto MD LAB - PATHOLOGY/C YTOLOGY ORDERABLES [facility] ACCOUNT BILL [address] [place] [address] documented in this encounter Visit Diagnoses Diagnosis Well woman exam with routine gynecological exam- Primary Routine gynecological examination Pap smear for cervical cancer screening Screening for malignant neoplasm of the cervix documented in this encounter Care Teams Signal Wirer Relationship Specialty Start Date End Date Gordon Mccullough MD PCP - General Family Medicine 08/08/21 documented as of this encounter
--- OUTSIDE RECORDS SUMMARY | 2024-06-17 07:43 | XMS_ITS | Encounter Summary ---
Author Organization [facility], [facility] Address [address] [place] [address] Care Team Providers Care Accounting Manager Controller Name Role Phone Gordon Mccullough MD Primary Care Provider +1- [phone] Reason for Visit * Reason Comments Establish Care Encounter Details Date Type Department Care Team (Late st Contact Info) Description 08/08/2021 9:30 AM ORE MINER Office Visit [facility] - Family Medicine [address] [place] [phone] Gordon Mccullough MD [address] [place] [address] Physical exam, routine (Primary Dx); Encounter to establish care with new doctor; JIMMY (generalized anxiety disorder); Chronic insomnia; Lipid screening Social History Tobacco Use Types Packs/Day Years Used Date Smoking Tobacco: Never Smokeless Tobacco: Never Alcohol Use Standard Drinks/Week Comments Yes 2 (1 standard drink = 0.6 oz pur e alcohol) PHQ-2 Answer Date Recorded PHQ2 TOTAL SCORE 1 08/08/2021 Sex and Gender Information Value Date Recorded Sex Assigned at Female 08/04/2021 1:55 PM ORE MINER Gender Identity Female 08/04/2021 1:55 PM ORE MINER Sexual Orientation Not on file documented as of this encounter Last Filed Vital Signs Vital Sign Reading Time Taken Comments Blood Pressure 122/85 08/08/2021 9:43 AM ORE MINER Pulse 78 08/08/2021 9:43 AM ORE MINER Temperature 36.9 ??C (98.5 ??F) 08/08/2021 9:43 AM CS T Respiratory Rate - - Oxygen Saturation 99% 08/08/2021 9:43 AM ORE MINER Inhaled Oxygen Concentration - - Weight 73.5 kg (162 lb) 08/08/2021 9:43 AM ORE MINER Height 180.3 cm (5' 11 ) 08/08/2021 9:43 AM ORE MINER Body Mass Index 22.59 08/08/2021 9:43 AM ORE MINER documented in this encounter Progress Notes * Gordon Mccullough MD - 08/08/2021 9:50 AM CST Office Visit, New Patient, Physical HISTORY: (4+ elements or 3+ chronic) CC & HPI: Tati Love is a 30 year old female established patient, here for: Chief Complaint Patient presents with ??? Establish Care HPI Pt presents to clinic to est PCP. Pt notes recently moving to area from [facility]. 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 , Pt has appointment to [facility] care with OBMARK[facility], Dr Karin Pinto. Pt denies hx of abnormal PAP. Pt with Mirena IUD (october 2018). Pt currently taking escitalopram 20mg for JIMMY. Pt notes on current medication tx since teens. Pt notes last therapist 5+. Pt with trazodone 100mg qhs for chronic insominia. Taking medication 3-4x/wk. Some difficulty with shift work adjustments. Pt previously on low dose Seroquel at 12.5mg for sleep, however d/c with excessive sedation/cognitive slowing. Pt denies hx of danitza. Pt also taking propranolol 10mg tid prn for acute break though anxiety. . FMH depression and anxiety in mother; [place]'s disease in MGF. Distant hx of smoking, quit 8 years ago. Pt currently drinking 6-9 drinks/wk. I have reviewed the medications listed in the patient's chart. Review of Systems (2 - 9) Review of Systems Constitutional: Negative for chills, fever and malaise/fatigue. HENT: Negative for congestion, ear pain, hearing loss, sinus pain and sore throat. Eyes: Negative for blurred vision and photophobia. Respiratory: Negative for cough, sputum production, shortness of breath and wheezing. Cardiovascular: Negative for chest pain, palpitations and leg swelling. Gastrointestinal: Negative for abdominal pain, blood in stool, constipation, diarrhea, nausea and vomiting. Genitourinary: Negative for dysuria and flank pain. Musculoskeletal: Negative for joint pain and myalgias. Skin: Negative for itching and rash. Neurological: Negative for dizziness, sensory change, weakness and headaches. Psychiatric/Behavioral: Negative for depression. The patient is nervous/anxious and has insomnia. PFSH, other pertinent history: (1 required) No past medical history on file. I have reviewed the allergies listed in the patient's chart. EXAM (a) single system: 12 elements from any single system exam OR b) multisystem: 12 elements from 2 ormore organ systems or at least 2 elements from each of 6 organ systems) BP 122/85 Pulse 78 Temp 98.5 ??F (36.9 ??C) (Temporal) Ht 1.803 m (5' 11 ) Wt 73.5 kg (162 lb) SpO2 99% No BMI 22.59 kg/m?? Physical Exam Vitals and nursing note reviewed. Constitutional: General: She is not in acute distress. Appearance: Normal appearance. She is normal weight. She is not ill-appearing, toxic-appearing or diaphoretic. HENT: Head: Normocephalic and atraumatic. Right Ear: Tympanic membrane, ear canal and external ear normal. There is no impacted cerumen. Left Ear: Tympanic membrane, ear canal and external ear normal. There is no impacted cerumen. Nose: Nose normal. No congestion or rhinorrhea. Mouth/Throat: Mouth: Mucous membranes are moist. Pharynx: Oropharynx is clear. No oropharyngeal exudate or posterior oropharyngeal erythema. Eyes: General: No scleral icterus. Right eye: No discharge. Left eye: No discharge. Conjunctiva/sclera: Conjunctivae normal. Neck: Thyroid: No thyromegaly. Trachea: No tracheal deviation. Cardiovascular: Rate and Rhythm: Normal rate and regular rhythm. Heart sounds: Normal heart sounds. No murmur heard. No friction rub. No gallop. Pulmonary: Effort: Pulmonary effort is normal. No respiratory distress. Breath sounds: Normal breath sounds. No stridor. No wheezing, rhonchi or rales. Abdominal: General: There is no distension. Palpations: Abdomen is soft. There is no mass. Tenderness: There is no abdominal tenderness. There is no guarding or rebound. Musculoskeletal: General: No tenderness or deformity. Normal range of motion. Cervical back: Normal range of motion and neck supple. No rigidity or tenderness. Lymphadenopathy: Cervical: No cervical adenopathy. Skin: General: Skin is warm and dry. Coloration: Skin is not jaundiced or pale. Findings: No bruising, erythema, lesion or rash. Neurological: Mental Status: She is alert and oriented to person, place, and time. Motor: No weakness. Coordination: Coordination normal. Gait: Gait is intact. Gait normal. Psychiatric: Mood and Affect: Mood and affect normal. Behavior: Behavior normal. Depression: PHQ-2:PHQ2 TOTAL SCORE: 1 PHQ-9:PHQ9 TOTAL SCORE: 2 JIMMY-7: Over the last 2 weeks, how often have you been bothered by the following problems? Feeling nervous, anxious, or on edge: Over half the days Not being able to stop or control worrying: Over half the days Worrying too much about different things: Over half the days Trouble relaxing: Several days Being so restless that it's hard to sit still: Several days Becoming easily annoyed or irritable: Over half the days Feeling afraid as if something awful might happen: Not at all Total Score: 10 If you indicated any of the problems discussed, how difficult have these problems made it for you to do your work, take care of things at home, or get along with other people? Difficulty level: Somewhat difficult ASSESSMENT: 1. Physical exam, routine 2. Encounter to establish care with new doctor 3. JIMMY (generalized anxiety disorder) 4. Chronic insomnia 5. Lipid screening Hx reviewed, est PCP. Vaccinations reviewed with pt completing COVID-19 vaccine, including #3 booster. Pt up to date on seasonal influenza vaccine. Last Tdap up to date from 07/01/19. Pt reports completed HPV series. Fasting labs ordered- lipids, CMP, CBC, TSH. JIMMY: referral placed to est care with psychiatry. Encouraged pt to est care with therapist for CBT.Cont current tx with escitalopram 20mg and prn propranolol 10mg. Chronic insomnia: reviewed sleep hygiene and cont current tx with trazodone 100mg. Pt to consider increased frequency of dosing to nightly. PLAN: Orders Placed This Encounter ??? TSH REFLEX FREE T4 Order Specific Question: Release to patient Answer: Immediate ??? COMPREHENSIVE METABOLIC PANEL Order Specific Question: Release to patient Answer: Immediate ??? CBC WITH DIFFERENTIAL Order Specific Question: Release to patient Answer: Immediate ??? LIPID PROFILE (LIPID PANEL) Order Specific Question: Release to patient Answer: Immediate ??? AMB REFERRAL TO PSYCHIATRY Standing Status: Future Standing Expiration Date: 08/08/2022 Referral Priority: Routine Referral Type: Consultation Referral Reason: Specialty Services Required Number of Visits Requested: 12 ??? escitalopram (LEXAPRO) 20 MG tablet Sig: Take 1 (one) tablet by mouth once daily Dispense: 90 tablet Refill: 0 ??? propranolol (INDERAL) 10 MG tablet Sig: Take 1 (one) tablet by mouth 3 times daily as needed (anxiety) Dispense: 30 tablet Refill: 1 ??? traZODone (DESYREL) 100 MG tablet Sig: Take 1 (one) tablet by mouth nightly as needed Dispense: 90 tablet Refill: 0 Return to office in 3 months. Patient instructed to call with any concerns or problems. MINER documented in this encounter Plan of Treatment Upcoming Encounters Date Type Department Care Team (Late st Contact Info) Description 07/21/2024 2:20 PM ORE MINER Office Visit [facility] - Internal Medicine [address] [place] [address] Gordon Mccullough MD [address] [place] [address] documented as of this encounter Procedures Procedure Name Priority Date/Time Associated Diagnosis Comments TSH REFLEX FREE T4 Routine 08/08/2021 11 :21 AM ORE MINER JIMMY (generalized anxiety disorder) Physical exam, routine CBC W AUTO DIFFERENTIAL Routine 08/08/2021 11:21 AM ORE MINER Physical exam, routine COMPREHENSIVE METABOLIC PANEL Routine 08/08/2021 11:21 AM ORE MINER JIMMY (generalized anxiety disorder) Physical exam, routine Lipid screening LIPID PROFILE Routine 08/08/2021 11:21 AM ORE MINER Lipid screening documented in this encounter Results * (ABNORMAL) LIPID PROFILE (LIPID PANEL) (08/08/2021 11:21 AM ORE MINER) Cholesterol 218(H) 100 - 199 mg/dL [facility] [...] BLOOD SPECIMEN / Unknown 08/08/2021 11:21 AM ORE MINER 08/08/2021 Narrative Resulting Agency Comment Lab Testing performed at: [facility] ??[facility] [id number] Gordon Mccullough MD LAB - CHEMISTRY OR DERABLES [facility] ACCOUNT BILL [address] [place] [address] * (ABNORMAL) CBC WITH DIFFERENTIAL (08/08/2021 11:21 AM ORE MINER) WBC 4.7 3.4 - 10.8 x10E3/uL [facility] ACCOUNT BILL RBC 4.09 3.77 - 5.28 x10E6/uL [facility] ACCOUNT BILL Hemoglobin 13.0 11.1 - 15.9 g/dL [facility] ACCOUNT BILL Hematocrit 38.1 34.0 - 46.6 % [facility] ACCOUNT BILL MCV 93 79 - 97 fL [facility] ACCOUNT BILL MCH 31.8 26.6 - 33.0 pg [facility] ACCOUNT BILL MCHC 34.1 31.5 - 35.7 g/dL [facility] ACCOUNT BILL RDW 11.6(L) 11.7 - 15.4 % [facility] ACCOUNT BILL Platelet Count 313 150 - 450 x10E3/uL [facility] ACCOUNT BILL Granulocytes % 58 Not Estab. % [facility] ACCOUNT BILL Lymphocytes % 32 Not Estab. % [facility] ACCOUNT BILL Monocytes % 9 Not Estab. % [facility] ACCOUNT BILL Eosinophils % 1 Not Estab. % [facility] ACCOUNT BILL Basophils % 0 Not Estab. % [facility] ACCOUNT BILL Immature Cells NOT NEEDED [facility] ACCOUNT BILL Comment:Ancillary determined the test is not needed. Granulocytes Absolute 2.7 1.4 - 7.0 x10E3/uL [facility] ACCOUNT BILL Lymphocytes Absolute 1.5 0.7 - 3.1 x10E3/uL [facility] ACCOUNT BILL Monocytes Absolute 0.4 0.1 - 0.9 x10E3/uL [facility] ACCOUNT BILL Eosinophils Absolute 0.1 0.0 - 0.4 x10E3/uL [facility] ACCOUNT BILL Basophils Absolute 0.0 0.0 - 0.2 x10E3/uL [facility] ACCOUNT BILL Immature Granulocytes 0 Not Estab. % [facility] ACCOUNT BILL Immature Granulocytes Absolute 0.0 0.0 - 0.1 x10E3/uL [facility] ACCOUNT BILL nRBC NOT NEEDED [facility] ACCOUNT BILL Comment:Ancillary determined the test is not needed. Comment Hematology NOT NEEDED [facility] ACCOUNT BILL Comment:Ancillary determined the test is not needed. Blood BLOOD SPECIMEN / Unknown 08/08/2021 11:21 AM ORE MINER 08/08/2021 Narrative Resulting Agency Comment Lab Testing performed at: [facility] ??[facility] [id number] Gordon Mccullough MD LAB - HEMATOLOGY O RDERABLES [facility] ACCOUNT BILL [address] [place] [address] * COMPREHENSIVE METABOLIC PANEL (08/08/2021 11:21 AM ORE MINER) Glucose 95 65 - 99 mg/dL [facility] ACCOUNT BILL BUN 7 6 - 20 mg/dL [facility] ACCOUNT BILL Creatinine 0.76 0.57 - 1.00 mg/dL [facility] ACCOUNT BILL eGFR by CKD-EPI 107 >59 mL/min/1. 73 [facility] ACCOUNT BILL Comment: In accordance with recommendations from the NKF-ASN Task force, ??[facility] has updated its eGFR calculation to the 2020 CKD-EPI ??creatinine equation that estimates kidney function without a race ??variable. BUN/Creatinine Ratio 9 - [facility] ACCOUNT BILL Sodium 138 134 - [...] BLOOD SPECIMEN / Unknown 08/08/2021 11:21 AM ORE MINER 08/08/2021 Narrative Resulting Agency Comment Lab Testing performed at: [facility] ??[facility] [id number] Gordon Mccullough MD LAB - CHEMISTRY OR DERABLES Performing Organization Address [facility] de Phone Number [facility] ACCOUNT BILL [address] [place] [address] * TSH REFLEX FREE T4 (08/08/2021 11:21 AM ORE MINER) TSH 0.808 0.450 - 4.500 uIU/mL [facility] ACCOUNT BILL Blood BLOOD SPECIMEN / Unknown 08/08/2021 11:21 AM ORE MINER 08/08/2021 Narrative Resulting Agency Comment Lab Testing performed at: [facility] ??[facility] [id number] Gordon Mccullough MD LAB - CHEMISTRY OR DERABLES Performing Organization Address City/[facility] Co de Phone Number [facility] ACCOUNT BILL [address] [place] [address] documented in this encounter Visit Diagnoses Diagnosis Physical exam, routine- Primary Routine general medical examination at a health care facility Encounter to establish care with new doctor JIMMY (generalized anxiety disorder) Generalized anxiety disorder Chronic insomnia Insomnia, unspecified Lipid screening Screening for lipoid disorders documented in this encounter Administered Medications Administered Medications Medication Order MAR Action Action Date Dose Rate Site PPD Given 02/25/2017 0.1 mL PPD Given 10/03/2015 0.1 mL PPD Given 10/12/2015 0.1 mL documented in this encounter Care Teams Accounting Manager Controller Relationship Specialty Start Date End Date Gordon Mccullough MD PCP - General Family Medicine 08/08/21 documented as of this encounter
--- OUTSIDE RECORDS SUMMARY | 2024-06-17 07:43 | XMS_ITS | Encounter Summary ---
Author Organization [facility] Address [address] [place] [address] Care Team Providers Care Smash Piecer Name Role Phone Gordon Mccullough MD Primary Care Provider +1- [phone] Reason for Visit * Reason Comments Ultrasound Encounter Details Date Type Department Care Team (Latest Contact Info) Description 06/04/2023 8:30 AM STRIPPER APPRENTICE OBGYN RADIOLOGY [facility] - [facility] [address] [place] [address], [address] [place] [address] Encounter for follow-up ultrasound of anatomy (HCC) ; screening for malformation using ultrasonics (HCC) Social History Tobacco Use Types Packs/Day Years Used Date Smoking Tobacco: Never Smokeless Tobacco: Never Alcohol Use Standard Drinks/Week Comments Not Currently 4 (1 standard drink = 0.6 oz pur e alcohol) PHQ-2 Answer Date Recorded Patient Health Questionnaire-2 Score 0 05/03/2023 Comments Yes Sex and Gender Information Value Date Recorded Sex Assigned at Female 08/04/2021 1:55 PM STRIPPER APPRENTICE Gender Identity Female 08/04/2021 1:55 PM STRIPPER APPRENTICE Sexual Orientation Not on file documented as of this encounter Procedure Notes * Anirudh Candelaria RDMS - 06/04/2023 8:57 AM CSTAssociated Order(s): US OB FOLLOWUP [facility] [place] OB ULTRASOUND - LIMITED Patient Name: Tati Cm Study Date: 06/04/2023 , Age: 4 1990, 32 year old Pregnancies: BMI: 23.85 LMP: Patient's last menstrual period was 12/17/2022 (exact date). Gestational age by ANUJA: 24 wks 1 days History/ Indication: Complete anomaly screen CPT-4: 43352 Presentation: breech Placenta: posterior Heart Rate: 143 bpm Amniotic Fluid: normal Operations Dispatcher Comments: Profile and 4CH were visualized. Anomaly screen is complete. Operations Dispatcher: RT Hardy (R), NATHALIA Images will be scanned into report. Physician Interpretation: Profile and 4-chamber heart views adequately visualized, completing the patient's anatomy scan. Interpreting Physician: Bao Pinto MD PPER APPRENTICE documented in this encounter Plan of Treatment Upcoming Encounters Date Type Department Care Team (Late st Contact Info) Description 07/21/2024 2:20 PM STRIPPER APPRENTICE Office Visit [facility] - Internal Medicine [address] [place] [address] Gordon Mccullough MD [address] [place] [phone] documented as of this encounter Procedures Procedure Name Priority Date/Time Associated Diagnosis Comments US OB FOLLOWUP Routine 06/04/2023 8:57 AM STRIPPER APPRENTICE screening for malformation using ultrasonics (HCC) documented in this encounter Results * US OB FOLLOWUP (06/04/2023 8:57 AM STRIPPER APPRENTICE) Anatomical Region Laterality Modality Abdomen, Pelvis Ultrasound Narrative 06/04/2023 8:57 AM STRIPPER APPRENTICE Karin Pinto MD ? 06/04/2023 ??9:10 AM ? [facility] OB ULTRASOUND - LIMITED Patient Name: Tati Cm Study Date: 06/04/2023 , Age: 4 1990, 32 year old Pregnancies: BMI: 23.85 LMP: Patient's last menstrual period was 12/17/2022 (exact date). Gestational age by ANUJA: 24 wks 1 days History/ Indication: ?? Complete anomaly screen CPT-4: ??27663 Presentation: breech Placenta: posterior Heart Rate: 143 bpm Amniotic Fluid: normal Operations Dispatcher Comments: Profile and 4CH were visualized. Anomaly screen is complete. Operations Dispatcher: ??RT Hardy (R), NATHALIA Images will be scanned into report. Physician Interpretation: Profile and 4-chamber heart views adequately visualized, completing the patient's anatomy scan. Interpreting Physician: Bao Pinto MD Procedure Note Anirudh Candelaria, NATHALIA - 06/04/2023 8:57 AM CST [facility] OB ULTRASOUND - LIMITED Patient Name: Tati Cm Study Date: 06/04/2023 , Age: 4 1990, 32 year old Pregnancies: BMI: 23.85 LMP: Patient's last menstrual period was 12/17/2022 (exact date). Gestational age by ANUJA: 24 wks 1 days History/ Indication: Complete anomaly screen CPT-4: 33009 Presentation: breech Placenta: posterior Heart Rate: 143 bpm Amniotic Fluid: normal Operations Dispatcher Comments: Profile and 4CH were visualized. Anomaly screen iscomplete. Operations Dispatcher: RT Hardy (Charlene), NATHALIA Images will be scanned into report. Physician Interpretation: Profile and 4-chamber heart views adequatelyvisualized, completing the patient's anatomy scan. Interpreting Physician: Bao Pinto MD Karin Pinto MD US ORDERABLES documented in this encounter Visit Diagnoses Diagnosis Encounter for follow-up ultrasound of anatomy (HCC)- Primary screening for malformation using ultrasonics (HCC) Encounter for routine screening for malformation using ultrasonics documented in this encounter Care Teams Smash Piecer Relationship Specialty Start Date End Date Gordon Mccullough MD PCP - General Family Medicine 08/08/21 documented as of this encounter
--- OUTSIDE RECORDS SUMMARY | 2024-06-17 07:43 | XMS_ITS | Encounter Summary ---
Author Organization [facility] Address [address] [facility] [place] [address] Care Team Providers Care Telegraph Installer Name Role Phone Gordon Mccullough MD Primary Care Provider +1- [phone] Encounter Details Date Type Department Care Team (Late st Contact Info) Description 07/23/2023 1:20 PM TRAY DRIER visit [facility] - RETURNED CASE INSPECTOR [address] [place] [address], [address] [address] Karin Pinto MD [address] [place] [address] GA: [id number] Social History Tobacco Use Types Packs/Day Years Used Date Smoking Tobacco: Never Smokeless Tobacco: Never Alcohol Use Standard Drinks/Week Comments Not Currently 4 (1 standard drink = 0.6 oz pur e alcohol) PHQ-2 Answer Date Recorded Patient Health Questionnaire-2 Score 0 05/03/2023 Comments Yes Sex and Gender Information Value Date Recorded Sex Assigned at Female 08/04/2021 1:55 PM TRAY DRIER Gender Identity Female 08/04/2021 1:55 PM TRAY DRIER Sexual Orientation Not on file documented as of this encounter Last Filed Vital Signs Vital Sign Reading Time Taken Comments Blood Pressure 110/72 07/23/2023 2:36 PM TRAY DRIER Pulse - - Temperature - - Respiratory Rate - - Oxygen Saturation - - Inhaled Oxygen Concentration - - Weight 83.7 kg (184 lb 8 oz) 07/23/2023 2:36 PM TRAY DRIER Height - - Body Mass Index 25.73 07/02/2023 9:20 AM TRAY DRIER documented in this encounter Progress Notes * Karin Pinto MD - 07/23/2023 1:20 PM CST CC: Routine Care Patient is doing well.??+FM.??Denies VB, LOF,??or significant cramping/ctx. No new concerns.??Follow-up in 2 weeks for routine PNC. DRIER documented in this encounter Plan of Treatment Upcoming Encounters Date Type Department Care Team (Late st Contact Info) Description 07/21/2024 2:20 PM TRAY DRIER Office Visit [facility] - Internal Medicine [address] [place] [address] Gordon Mccullough MD [address] [place] [address] documented as of this encounter Visit Diagnoses Diagnosis 31 weeks gestation of (HCC)- Primary state, incidental Anxiety in , antepartum (HCC) Mental disorders of mother, antepartum documented in this encounter Care Teams Telegraph Installer Relationship Specialty Start Date End Date Gordon Mccullough MD PCP - General Family Medicine 08/08/21 documented as of this encounter
--- OUTSIDE RECORDS SUMMARY | 2024-06-17 07:43 | XMS_ITS | Encounter Summary ---
Author Organization [facility] Address [address] [place] [address] Care Team Providers Care Dental Hygiene Professor Name Role Phone Gordon Mccullough MD Primary Care Provider +1- [phone] Encounter Details Date Type Department Care Team (Latest Contact Info) Description 07/02/2023 Travel Social History Tobacco Use Types Packs/Day Years Used Date Smoking Tobacco: Never Smokeless Tobacco: Never Alcohol Use Standard Drinks/Week Comments Not Currently 4 (1 standard drink = 0.6 oz pur e alcohol) PHQ-2 Answer Date Recorded Patient Health Questionnaire-2 Score 0 05/03/2023 Comments Yes Sex and Gender Information Value Date Recorded Sex Assigned at Female 08/04/2021 1:55 PM CASTING TECHNICIAN Gender Identity Female 08/04/2021 1:55 PM CASTING TECHNICIAN Sexual Orientation Not on file documented as of this encounter Plan of Treatment Upcoming Encounters Date Type Department Care Team (Late st Contact Info) Description 07/21/2024 2:20 PM CASTING TECHNICIAN Office Visit [facility] - Internal Medicine [address] [place] [address] Gordon Mccullough MD [address] [place] [phone] documented as of this encounter Visit Diagnoses Not on filedocumented in this encounter Care Teams Dental Hygiene Professor Relationship Specialty Start Date End Date Gordon Mccullough MD PCP - General Family Medicine 08/08/21 documented as of this encounter
--- OUTSIDE RECORDS SUMMARY | 2024-06-17 07:43 | XMS_ITS | Encounter Summary ---
Author Organization [facility] Address [address] [place] [address] Care Team Providers Care Garment Cutter Name Role Phone Gordon Mccullough MD Primary Care Provider [phone] Encounter Details Date Type Department Care Team (Latest Contact Info) Description 04/08/2023 Travel Social History Tobacco Use Types Packs/Day Years Used Date Smoking Tobacco: Never Smokeless Tobacco: Never Alcohol Use Standard Drinks/Week Comments Not Currently 4 (1 standard drink = 0.6 oz pur e alcohol) PHQ-2 Answer Date Recorded Patient Health Questionnaire-2 Score 0 02/25/2023 Comments Yes Sex and Gender Information Value Date Recorded Sex Assigned at Female 08/04/2021 1:55 PM SALES TRAINER Gender Identity Female 08/04/2021 1:55 PM SALES TRAINER Sexual Orientation Not on file documented as of this encounter Plan of Treatment Upcoming Encounters Date Type Department Care Team (Late st Contact Info) Description 07/21/2024 2:20 PM SALES TRAINER Office Visit [facility] - Internal Medicine [address] [place] [address] Gordon Mccullough MD [address] [facility] [place] [id number] documented as of this encounter Visit Diagnoses Not on filedocumented in this encounter Care Teams Garment Cutter Relationship Specialty Start Date End Date Gordon Mccullough MD PCP - General Family Medicine 08/08/21 documented as of this encounter
== END 2024-06-10 13:15 | disposition home or self-care (01) ==
PROVIDERS: Emergency Provider Physician Assistant
DX: Z20.3 Contact with and (suspected) exposure to rabies (principal); Z23 Encounter for immunization
CPT/HCPCS: 90375; 90471; 90675; 96372; 99283